=== PATIENT | male | born 1965 | race Caucasian/White ===

== ENCOUNTER 2021-11-22 08:55 | Outpatient (CLI) | payer OTHER, SELFPAY ==
--- NOTE | ~2021-11-22 | US_ITS ---
EXAMINATION: US aorta EXAM DATE: 11/22/2021 10:24 INDICATION: I71.4 - Abdominal aortic aneurysm, without rupture AAA . TECHNIQUE: Multiple grayscale and Doppler images of the aorta were obtained (by a technologist who pe rformed the scan) and subsequently reviewed. Comparison is made to prior examination from 03/05/2019. FINDINGS: The abdominal aorta measures 1.9 cm at its mid aspect, 3.1 x 4.0 cm distally. Dimensions are larger t gambino those provided in 2019 at 2.9 x 3.4. Right and left iliac arteries are 1.6 and 1.3 cm respectivel y. IMPRESSION: Mild increase in size of abdominal aortic aneurysm now measuring 4.0 cm distal transverse dimension. Reviewed, dictated and finalized at location A. BASE SECURITY ADMINISTRATOR IMPRESSION: Mild increase in size of abdominal aortic aneurysm now measuring 4. 0 cm distal transverse dimension.
== END 2021-11-22 08:56 | disposition home or self-care (01) ==
LOC: ANHIMG 08:58
PROVIDERS: PCP Family Medicine; Visit Provider Internal Medicine Cardiovascular Disease
DX: I71.4 Abdominal aortic aneurysm, without rupture (principal)
CPT/HCPCS: 76775

== ENCOUNTER 2022-09-24 08:04 | Outpatient (CLI) | payer OTHER, SELFPAY ==
--- NOTE | ~2022-09-24 | MR_ITS ---
EXAMINATION: MR shoulder RT wo con DATE: 09/24/2022 09:04 INDICATION: Right shoulder pain TECHNIQUE: Magnetic resonance imaging (MRI) of the right shoulder was performed without intravenous c ontrast. Sequences included axial PD-weighted FS FSE, coronal oblique PD-weighted FS FSE, coronal obl ique T2-weighted FS FSE, sagittal PD-weighted FS FSE, and sagittal T1-weighted SE. COMPARISON: None. FINDINGS: Coracoacromial arch: The acromion undersurface is curved in morphology (type II). Small anterior subacromial spur at the a cromial insertion of the normal coracoacromial ligament. Mild acromioclavicular osteoarthritis. Rotator cuff: Severe supraspinatus tendinopathy and mild infraspinatus tendinopathy. Articular sided tear extending approximately 2.5 cm AP along the superior facet footplate of the supraspinatus and conjoined portio n of the supraspinatus and infraspinatus tendons. There is approximately 1.5 cm medial retraction of the torn articular side of the tendon. Posteriorly the tear involves up to one half of the tendon thi ckness. This is likely more severe anteriorly however the differentiation between torn and frayed neeraj milton intact tendon is limited anteriorly by the severe underlying tendinopathy. The teres minor tendon is normal. Moderate subscapularis tendinopathy with partial thickness tear along the lesser tuberosi ty footplate. This can be seen along the lateral half of the cephalad two thirds of the footplate. Th e articular side of the tendon remains intact as does the bursal side of the tendon which remains con tiguous with the transverse humeral ligament. Normal rotator cuff muscle bulk and signal. Biceps tendon, glenoid labrum and glenohumeral cartilage: There is subluxation of the long head biceps tendon across the superolateral aspect of the lesser tub erosity at the site of the torn subscapularis tendon tear. Former moderate tendinopathy at the juncti on the intra-articular portion of the tendon where it is subluxed across the lesser tuberosity. Chron ic degenerative tearing of the majority of the glenoid labrum which appears diffusely small with irre gular increased signal and frayed margins. This appears to spare the superior labrum at the site of t he biceps labral complex. There are small marginal osteophytes along the glenoid most prominent infer iorly which replaces portions of the labral tissue. Mild glenohumeral osteoarthritis with partial thi ckness cartilage loss which generally smooth chondral surface along the cephalad half the glenoid and inferomedial aspect of the humeral head. Fluid: Moderate-sized glenohumeral joint effusion with proportional extension of small amount of fluid into the long head biceps tendon sheath. No loose osteochondral bodies. Mild increased fluid signal along portions of the subacromial/subdeltoid bursa consistent with minimal bursitis. Bones: Bone alignment is normal. No fracture or pathologic marrow replacing process. Mild hypertrophic schultz e along the lesser tuberosity and mild cystic change at the middle facet of the greater tuberosity tashi th likely sequela of chronic rotator cuff disease. IMPRESSION: 1. Severe supraspinatus and mild infraspinatus tendinopathy with partial-thickness articular sided te ar extending along the greater tuberosity footplate of the supraspinatus and conjoined supraspinatus and infraspinatus tendons. 2. Moderate subscapularis tendinopathy with partial-thickness tear involving the superolateral portio n of the lesser tuberosity footplate. 3. Moderate tendinopathy without definitive tear at the junction of the intra-articular and extra-art icular portions of the long head biceps tendon where it is subluxed across the subscapularis tear def ect at the lesser tuberosity. 4. Mild glenohumeral osteoarthritis with diffuse degenerative tearing of the diminutive and frayed ap pearing glenoid labrum. ___
== END 2022-09-24 08:05 | disposition home or self-care (01) ==
PROVIDERS: PCP Family Medicine; Visit Provider Orthopaedic Surgery
DX: S46.011A Strain of muscle(s) and tendon(s) of the rotator cuff of right shoulder, initial encounter (principal); M19.011 Primary osteoarthritis, right shoulder; S43.431A Superior glenoid labrum lesion of right shoulder, initial encounter
CPT/HCPCS: 73221

== ENCOUNTER → 2022-11-03 08:45 | Outpatient (CLI) | payer OTHER, SELFPAY ==
--- NOTE | ~2022-11-03 | US_ITS ---
EXAMINATION: US aorta DATE: 11/03/2022 09:04 INDICATION: Abdominal aortic aneurysm TECHNIQUE: Grayscale, color Doppler, and pulsed Doppler images of the aorta and common iliac arteries were obtained. COMPARISON: 11/03/2022. FINDINGS: The aorta measures 2.6 cm proximally, 2.6 cm mid, and 3.8 cm distally. The right common iliac artery 1.2. The left common iliac artery 1.2. IMPRESSION: 1. 3.8 cm fusiform distal infrarenal abdominal aortic aneurysm. Recommend follow-up aortic ultrasound in 2 years. Reviewed, dictated and finalized at location K. COAT MILL OPERATOR IMPRESSION: 1. 3.8 cm fusiform distal infrarenal abdominal aortic aneurysm. Recommend follo w-up aortic ultrasound in 2 years.
== END ==
PROVIDERS: PCP Internal Medicine Cardiovascular Disease; Visit Provider Internal Medicine Cardiovascular Disease
DX: I71.40 Abdominal aortic aneurysm, without rupture, unspecified (principal)
CPT/HCPCS: 76775

== ENCOUNTER 2022-11-26 09:59 | Outpatient (CLI) | payer OTHER, SELFPAY ==
--- NOTE | ~2022-11-26 | NM_ITS ---
EXAMINATION: NM juliette stress w perfusion DATE: 11/26/2022 12:23 INDICATION: Other forms of dyspnea. TECHNIQUE: Rest images were obtained following intravenous administration of 8 mCi Tc99m tetrofosmin (Myoview). The patient was infused intravenously with Lexiscan (regadenoson). Then, 28.3 mCi Tc99m te trofosmin (Myoview) was administered intravenously, and stress images were obtained. Data was reconst ructed into short axis and horizontal and vertical long axis SPECT images. Gated SPECT images were al so obtained. COMPARISON: CT abdomen and pelvis 05/05/2018 FINDINGS: There is no definite reversible or fixed perfusion abnormality to suggest ischemia or infar ction. There is no segmental wall motion abnormality. Left ventricular ejection fraction measures > 70%. IMPRESSION: 1. No definite ischemia or infarct. 2. Normal left ventricular ejection fraction measuring >70%. Reviewed, dictated and finalized at location A. SDET
--- NOTE | 2022-11-26 10:24 | EST_ITS ---
Patient Info Name: Tray Patel Age: 57 years : 1965 Gender: Male Ht: 70 in Wt: 170 lbs BSA: 1.96 m2 HR: 61 bpm BP: 148 / 76 mmHg Heart Rhythm: Sinus Rhythm Exam Date: 11/26/2022 11:03 AM Exam Location: [facility] Stress Patient Status: Outpatient Admit Date: 11/26/2022 Staff Ordering Physician: Luis Bonilla DO Attending Provider: Luis Bonilla DO Exercise Technologist: Mahsa Salazar CT Exercise Physician: Luis Bonilla DO Exam Type: CA stress juliette w NM Study Info Indications R06.09 - Other forms of dyspnea A regadenoson stress test was performed. Summary 1. 1. Negative lexiscan stress test for ischemic ST changes by ECG criteria. 2. 2. Stable hemodynamics throughout the test. 3. 3. Nuclear scan to follow and will be reported separately. Please correlate with it. 4. 4. Patient informed of the above results. Protocol: Lexiscan Stress ECG Details Stage: REST Duration (min): 0 min : 57 sec HR (bpm): 64 SBP (mmHg): 148 DBP (mmHg): 76 Stage: REST Duration (min): 7 min : 33 sec HR (bpm): 62 SBP (mmHg): 148 DBP (mmHg): 76 Stage: STAGE 1 Duration (min): 0 min : 59 sec HR (bpm): 71 SBP (mmHg): 148 DBP (mmHg): 76 Stage: RECOVERY Duration (min): 1 min : 0 sec HR (bpm): 80 SBP (mmHg): 221 DBP (mmHg): 87 Stage: RECOVERY Duration (min): 2 min : 0 sec HR (bpm): 76 SBP (mmHg): 114 DBP (mmHg): 63 Stage: RECOVERY Duration (min): 2 min : 52 sec HR (bpm): 74 SBP (mmHg): 114 DBP (mmHg): 66 Rest HR: 62 bpm Peak HR: 80 bpm Rest Sys BP: 128 mmHg Peak Sys BP: 135 mmHg Max Pred HR: 163 bpm % Max Pred HR: 49 % Target HR: 139 bpm Max RPP: 10,800 bpm*mmHg Termination Reason: Completed protocol Cardiac Symptoms: Shortness of breath Total Time: 1 min : 0 sec Rest Pérez BP: 76 mmHg Peak Pérez BP: 87 mmHg Total Dose: 0.4 mg Resting ECG Sinus rhythm. Stress ECG No ST changes. Arrhythmias None. Report Signatures
== END 2022-11-26 10:00 | disposition home or self-care (01) ==
PROVIDERS: PCP Family Medicine; Visit Provider Internal Medicine Cardiovascular Disease
DX: R06.09 Other forms of dyspnea (principal)
CPT/HCPCS: 78452; 93017; A9502; J2785

== ENCOUNTER 2022-11-29 06:49 | Outpatient (CLI) | payer OTHER, SELFPAY ==
[2022-11-29 07:19] LABS: Alanine Aminotransferase 17 U/L (6-50); Albumin Level 4.2 g/dL (3.5-5.1); Alkaline Phosphatase 55 U/L (38-126); Anion Gap 6 mmol/L (8-16); Aspartate Amino Transferase 19 U/L (17-59); Bilirubin,Total 0.6 mg/dL (0.2-1.3); Blood Urea Nitrogen 11 mg/dL (9-20); Calcium 8.8 mg/dL (8.4-10.2); Carbon Dioxide 30 mmol/L (22-30); Chloride 103 mmol/L (98-107); Cholesterol 96 mg/dL (0-200); Estimated Glomerular Filt Rate > 60; Glucose 147 mg/dL (65-110); HDL Direct 27 mg/dL; Potassium 3.5 mmol/L (3.4-5.0); Sodium 139 mmol/L (137-145); Triglycerides 135 mg/dL (<150)
[2022-11-29 07:30] LABS: LDL Cholesterol Direct 48 mg/dL
[2022-11-29 07:49] LABS: Prostate Specific Antigen 0.4 ng/mL (< OR = 4.0)
[2022-11-29 09:16] LABS: Vitamin D 25 Hydroxy 65.9 ng/mL
== END 2022-11-29 06:50 | disposition home or self-care (01) ==
PROVIDERS: PCP Family Medicine; Visit Provider Nurse Practitioner Family
DX: Z12.5 Encounter for screening for malignant neoplasm of prostate (principal); E78.5 Hyperlipidemia, unspecified; E11.9 Type 2 diabetes mellitus without complications; E55.9 Vitamin D deficiency, unspecified; I10 Essential (primary) hypertension
CPT/HCPCS: 36415; 80053; 80061; 82306; 83036; 84153; 84443; G0103

== ENCOUNTER 2022-12-10 00:23 | Day surgery (SDC) | payer OTHER, SELFPAY ==
[2022-11-28 12:46] VITALS: BMI 24.4
--- NOTE | 2022-11-28 14:26 | SUR.PREOP ---
Report to the Outpatient Waiting Room, entrance under the green pavilion located off [facility], at time _0830 on date _12/10/22 . Planned Procedure Time: _1030 . Time changes happen often and if your time is changed the preop area will call you the afternoon before. - You and your visitor will be asked to self-screen and do not enter if you have any COVID symptoms. - Only one visitor is requested with a max of two and NO children visitors are allowed at this time. - The patient visitor may be requested to leave or wait in car when not with patient due to distancing restrictions. - A mask is optional within the hospital. Patients may have clear liquids (water, carbonated beverages, clear teas, apple juice) until 3 hours prior to surgery with a maximum of 20 ounces. - No food from midnight until time of surgery - Infants may have breast milk until 4 hours before surgery, formula 6 hours prior to surgery. - Children will be allowed to drink immediately following surgery. If applicable, please bring a bottle or sippy cup to assist with drinking. Juice, water, soda, and popsicles are readily available. For infants on formula, please bring formula the day of surgery. Pacifiers are allowed. Take the following medications with a SIP of water the morning of surgery: _LEVOTHYROXINE,CARVEDILOL,PAIN MED IF NEEDED Medications to discontinue per physician __CONTACT DR LOMAS FOR ASPIRIN INSTRUCTIONS,IF NEEDED TO HOLD Date to take last dose Please no make-up, nail beninese, hairspray, perfume, deodorant, or body powder the day of surgery. No jewelry (including any body piercings) or valuables the day of surgery, leave them at home. Please take a shower or bath the night before, or the morning of, surgery with an antibacterial soap. Wear comfortable, loose fitting clothing. Children are encouraged to wear pajamas. - Jewelry must be removed prior to entering the operating room. Rings and piercings that are not removed may be cut off. - The hospital will not accept responsibility for valuables. - Please leave all valuables, including medications, at home the day of surgery. If you are going home after surgery, a licensed petroleum transport driver must drive you home. - NO public transportation without another adult if you receive anesthesia. - We recommend that an adult stay with you for 24 hours following discharge. - We also recommend that you do not drive, make important decision, drink alcoholic beverages, or take any drugs that were not prescribed by your health care provider for at least 24 hours after your discharge time. For Pediatric surgeries, we recommend two adults accompany the child home. Follow any additional instructions given to you from your surgeon. If you or anyone in your household have experienced Covid symptoms in the past week, please notify your surgeon or the nurse liaison at the phone number below for possible testing. Telephone instructions given to _MARLINE IYER WIFE and asked if any additional questions and then verbalized understanding. Patient advised to call surgeon office or pre surgery nurse liaison [phone] if any additional questions.
[2022-12-10] VITALS (7 sets, daily range): BP systolic 109–151; BP diastolic 69–85; PULSE 48–65; RESP 12–18; TEMP 36.2–36.4; O2SAT 96–100; BMI 24.1
--- NOTE | 2022-12-10 07:22 | WPDHPUPDATE1 ---
History and Physical Update Update Date/Time: 12/10/22 07:22 History and Physical has been reviewed, including an updated exam of the patient. There are NO changes in the patient's condition. Risks, benefits, and alternatives have been discussed and questions answered. Patient agrees to proceed with procedure.
--- NOTE | 2022-12-10 08:58 | WPDANESEPPF ---
Anes - Initial Pre Proc Eval Procedure: Operation Date: 12/10/22 10:30 Proposed Procedures p Right Rotator Cuff Repair - Rico Weiss MD Date/Time: 12/10/22 08:58 Surgeon: Rico Weiss MD Pre Op Diagnosis: right rotator cuff tear Patient Data Age: 57 Gender: M Height: 1.78 m Weight: 77.27 kg Allergies Allergy/AdvReac Type Severity Reaction Status Date / Time amoxicillin Allergy Intermediate Unknown Verified 12/10/22 08:44 Home Medications Medication Instructions Recorded Confirmed Type aspirin 81 mg tablet,delayed 81 mg PO DAILY 05/17/20 12/10/22 History release (Adult Low Dose Aspirin) omeprazole 20 mg capsule,delayed 20 mg PO DAILY 05/17/20 12/08/22 History release cholecalciferol (vitamin D3) 50 50 mcg PO DAILY 03/04/21 12/08/22 History mcg (2,000 unit) capsule atorvastatin 40 mg tablet 40 mg PO DAILY #90 tabs 07/14/22 12/08/22 Rx levothyroxine 25 mcg tablet 25 mcg PO DAILY #90 tabs 07/16/22 12/10/22 Rx fenofibrate 160 mg tablet 160 mg PO DAILY #90 tabs 08/11/22 12/08/22 Rx metformin 1,000 mg tablet 1,000 mg PO BID #180 tabs 09/29/22 12/08/22 Rx hydrochlorothiazide 25 mg tablet See Rx Instructions .Route 10/05/22 12/08/22 Rx .COMPLEX #90 tabs lisinopril 20 mg tablet 20 mg PO BID #180 tabs 10/06/22 12/08/22 Rx carvedilol 12.5 mg tablet See Rx Instructions .Route 10/09/22 12/10/22 Rx .COMPLEX #180 tabs hydrocodone 5 mg-acetaminophen 300 1 tablet PO BID PRN pain #30 tabs 11/13/22 12/10/22 Rx mg tablet glipizide 5 mg tablet 5 mg PO DAILY #90 tabs 12/01/22 12/08/22 Rx flash glucose sensor (FreeStyle #1 ea 12/02/22 12/08/22 Rx Keyanna 14 Day Sensor kit) Patient hx anesthesia problems: none Family hx anesthesia problems: none Results Review: All pre-operative results and documents have been reviewed as part of the pre-operative evaluation. PMFSH Past Medical History Medical History AAA (abdominal aortic aneurysm) without rupture CAD in [place] artery Chronic pain of both knees Dyslipidemia Essential (primary) hypertension History of diverticulitis Hypothyroidism, unspecified Type 2 diabetes mellitus without complication, without long-term current use of insulin Vitamin D deficiency Surgical History Surgical History History of coronary artery stent placement Family History Family History Mother Patient's mother is Father Patient's father is Sibling Diabetes mellitus Other Hypertension Social History Social History Smoking packs per day: 1 Smoking cigarettes per day: 20.0 Years smoked: 40 Smoking pack-years: 40.00 Smoking status: Current every day smoker Tobacco type: cigarettes Second hand tobacco smoke exposure: No Additional smoking assessment comments: 1 1/2 ppd [id number] Alcohol intake: former Alcohol use details: consumes beer socially Substance use: never Substance use type: does not use Living arrangements: with family Gender identity (if verbalized by the patient): Male Spiritual care concerns: No Anes - Eval Final PreProcedure Day of Procedure 12/10/22 08:58 Patient weight: normal Heart: regular rate and rhythm Lungs: decreased breath sounds Airway: Mallampati scale class II Neurological: alert and oriented Last oral intake: >/= 8 hours ASA classification: III Emergent: no Anesthetic plan: proceed Anesthesia type and monitoring: general ETT and standard monitoring Results Review: All pre-operative results and documents have been reviewed as part of the pre-operative evaluation. Informed Consent: The patient's anesthetic plan and its attendant risks and benefits were discussed with the patient/family/POA. Questions were solicited a
[2022-12-10] MEDS: LACTATED RINGERS 1,000 ML 30 ML IV CONT ×2 (09:00→13:27)
[2022-12-10 09:10] LABS: Glucose Point of Care 168 mg/dl (65-105)
[2022-12-10] MEDS: ACETAMINOPHEN 500 MG TABLET 1000 MG PO (09:13)
[2022-12-10] MEDS: CELECOXIB 200 MG CAPSULE PO (09:13)
--- NOTE | 2022-12-10 10:37 | WPDANESPNB ---
Anes - Peripheral Nerve Block Date/Time: 12/10/22 10:37 I have discussed with the patient/family/POA the placement of a peripheral nerve block for post-operative pain management, including associated risks, benefits, complications, and side effects. Alternative methods of post-operative analgesia were detailed. Questions were solicited and answers provided to the satisfaction of the patient/family/POA. Time-Out: A pre-procedural Time-Out was completed immediately before starting the procedure and confirmed: Patient Identification, Site, Procedure, Patient Position and the Availability of Requisite Equipment. Clinical Indications: Acute post-operative pain management requested by the operative surgeon. Nerve Block Insertion Note Anes-nerve block: interscalene right Patient position: supine Skin prep: chlorhexidine Needle: 22 gauge, stimulating, insulated echogenic needle. Needle length: 50 mm Technique: nerve stimulation lost at (mA) (0.3) and ultrasound Technique comment: mid2mg [id number] Injectate: bupivacaine 0.5% with epi 5 mcg/ml (30ml) and dexamethasone (mg) (4) Observations: tolerated well Complications: none Procedure start time:: 1028 Procedure end time:: 1033
[2022-12-10] MEDS: ceFAZolin 2 GM/D5W 50 ML 2 GM/50 ML BAG IVPB (11:06)
[2022-12-10 13:34] LABS: Glucose Point of Care 135 mg/dl (65-105)
--- NOTE | 2022-12-10 16:16 | W.PM.PROC2 ---
Procedure Note - Detailed Date of Procedure 12/10/22 Pre-op Diagnosis right rotator cuff tear Post-op Diagnosis Same Procedure Performed REPAIR RIGHT ROTATOR CUFF Surgeon Rico Weiss MD Anesthesia General Description of Procedure THE PATIENT WAS TAKEN TO THE OPERATING ROOM AND THEN INTUBATED AND PLACED IN THE BEACH CHAIR POSITION. THE RIGHT UPPER EXTREMITY WAS PREPPED AND DRAPED IN THE NORMAL STERILE FASHION. AN INCISION WAS MADE IN BETWEEN THE BUSTER-LATERAL ACROMION AND THE AC JOINT. THE FASCIA WAS IDENTIFIED. NEXT A MINI OPEN INCISION WAS MADE THROUGH THE DELTOID MUSCLE EXPOSING THE SUBACROMIAL SPACE. A LIMITED ACROMIOPLASTY WAS PREFORMED. THE ROTATOR CUFF WAS IDENTIFIED. THERE WAS A FULL THICKNESS TEAR. IT MEASURED APPROXIMATELY 3 CM X 2 CM. THERE WAS A LOT OF BURSAE AND INFLAMED BURSA TISSUE. THERE WAS A SIGNIFICANT AMOUNT OF ADHESIONS IN THE SUB DELTOID BURSA WELL. DIGITAL ADHESIOLYSIS WAS PREFORMED. THE GREATER TUBEROSITY WAS DEBRIDED TO BLEEDING BONE. 4 ARTHREX 5.5 SUTURE ANCHORS WERE PLACED IN TO GOOD BONE AND HAD VERY GOOD BITES. NBA-NIELS TYPE REPAIRS WERE DONE TO THE ROTATOR CUFF AND THERE WAS GOOD APPROXIMATION TO THE GREATER TUBEROSITY. THE REPAIR WAS EXCELLENT. THERE WAS NO IMPINGEMENT ON THE REPAIR FROM THE ACROMION WITH RANGE OF MOTION. THE WOUND WAS IRRIGATED WITH COPIOUS AMOUNTS OF ANTIBIOTIC SOLUTION, STERILE BETADINE AND H202 MIXED WITH WATER.. THE DELTOID MUSCLE WAS REPAIRED WITH #2 FIBER WIRE AND 0 VICRYL SUTURE. THE SUBCUTANEOUS LAYER WAS APPROXIMATED WITH 2-0 VICRYL. THE SKIN WAS APPROXIMATED WITH 3-0 QUIL AND DERMABOND. STERILE DRESSING WAS APPLIED. PATIENT WAS EXTUBATED. Estimated Blood Loss 20 Complications No immediate complications Condition Stable Disposition PACU
--- NOTE | 2022-12-10 16:45 | SUR.PHASEII ---
RN called spouse to let her know that pain medicine was sent to pharmacy and that it was okay to resume aspirin tomorrow per Dr. Weiss.
== END 2022-12-10 15:10 | disposition home or self-care (01) ==
PROVIDERS: PCP Nurse Practitioner Family; Visit Provider Orthopaedic Surgery
PROC: (CPT 23420; principal; 2022-12-10 10:30)
DX: S46.011A Strain of muscle(s) and tendon(s) of the rotator cuff of right shoulder, initial encounter (principal); W19.XXXA Unspecified fall, initial encounter; G89.18 Other acute postprocedural pain; I71.40 Abdominal aortic aneurysm, without rupture, unspecified; I25.10 Atherosclerotic heart disease of native coronary artery without angina pectoris; I10 Essential (primary) hypertension; E78.5 Hyperlipidemia, unspecified; E11.9 Type 2 diabetes mellitus without complications; E55.9 Vitamin D deficiency, unspecified; E03.9 Hypothyroidism, unspecified; Z95.5 Presence of coronary angioplasty implant and graft; F17.210 Nicotine dependence, cigarettes, uncomplicated; Z79.82 Long term (current) use of aspirin; Z79.84 Long term (current) use of oral hypoglycemic drugs
CPT/HCPCS: 23410; 64415; 82948; A9270; C1713; J0690; J1100; J2250; J2370; J2405; J2704; J3010; J7120

== ENCOUNTER 2023-02-23 15:55 | Emergency (ER) | payer OTHER, SELFPAY ==
--- NOTE | 2023-02-23 17:11 | PC.NURSE ---
Patient states he does not wish to be seen anymore and is going home. Patient ambulated out of ED with a steady gait and with all belongings. Patient advised to return to the ED if symptoms worsen or continue.
== END 2023-02-23 17:11 | disposition left against medical advice (07) ==
PROVIDERS: PCP Family Medicine
DX: Z53.21 Procedure and treatment not carried out due to patient leaving prior to being seen by health care provider (principal)
CPT/HCPCS: 99199

== ENCOUNTER 2023-02-24 09:24 | Emergency (ER) | payer OTHER, SELFPAY ==
--- NOTE | ~2023-02-24 | CT_ITS ---
EXAMINATION: CT abdomen pelvis w con DATE: 02/24/2023 17:05 INDICATION: Left lower quadrant abdominal pain. Epigastric abdominal pain. Constipation. TECHNIQUE: Computed tomography (CT) of the abdomen and pelvis was performed with 100 mL Omnipaque 350 intravenous contrast. Automated exposure control and iterative reconstruction technique were employe d. The dose-length product was 608.12 mGy-cm. COMPARISON: CT abdomen and pelvis 05/05/2018 FINDINGS: The visualized portions of the lung bases demonstrate mild atelectasis. No pleural effusion . The heart size is normal. There are coronary artery calcifications. No pericardial effusion. Left h epatic lobe is small. The gallbladder, spleen, pancreas, and right adrenal gland are normal. There is an 8 mm mass in left adrenal gland that demonstrated fat on the prior CT, consistent with a myelolip soah. The kidneys are normal. There is a 3.3 cm fusiform aneurysm of infrarenal aorta. The prostate is mildly enlarged. There is a right inguinal hernia containing fat. There are diverticula in the colon . There is wall thickening of sigmoid colon with fat stranding between the sigmoid colon and bladder, consistent with chronic diverticulitis. There are no dilated loops of bowel. The appendix is normal. There is calcified atherosclerosis of the aorta and many of the other arteries. There are no patholo gically enlarged lymph nodes. There is no free intraperitoneal fluid. There is mild thoracolumbar spo ndylosis. There is mild chronic anterior wedging of T11 and T12 vertebral bodies. IMPRESSION: 1. Mild findings of chronic sigmoid diverticulitis. 2. 3.3 cm fusiform aneurysm of infrarenal aorta. 3. Right inguinal hernia containing fat. Reviewed, dictated and finalized at location A.
[2023-02-24 09:53] VITALS: BP 119/101; PULSE 70; RESP 18; TEMP 36.3; O2SAT 100
[2023-02-24 12:56] LABS: Basophils Absolute Auto 0.1 K/mm3 (0.0-0.1); Basophils Percent Auto 1.2 % (0.2-1.2); Eosinophils Absolute Auto 0.3 K/mm3 (0-0.3); Eosinophils Percent Auto 3.1 % (0-4.4); Hematocrit 41.9 % (42.0-52.0); Hemoglobin 14.5 g/dL (14.0-18.0); Immature Granulocyte Absolute 0.07 K/mm3 (0.00-0.031); Immature Granulocyte Percent A 0.8 % (0-0.5); Lymphocytes Absolute Auto 2.33 K/mm3 (0.9-3.2); Lymphocytes Percent Auto 25.5 % (18.3-44.2); Mean Corpuscular HGB Conc 34.6 g/dl (32-36); Mean Corpuscular Hemoglobin 32.2 pg (26-34); Mean Corpuscular Volume 93.1 fl (80-100); Mean Platelet Volume 9.4 fl (7.4-10.4); Monocytes Percent Auto 10.6 % (2.6-8.5); Neutrophils Absolute Auto 5.4 K/mm3 (1.3-6.7); Neutrophils Percent Auto 58.8 % (45.5-73.1); Platelet Count Result 258 k/mm3 (150-375); Red Cell Distribution Width 12.6 % (11.5-14.5); White Blood Count 9.1 K/mm3 (4.5-10.0)
[2023-02-24 12:57] LABS: Appearance Urine Clear (Clear); Bilirubin Urine Negative (Negative); Blood Urine Negative (Negative); Color Urine Yellow (Yellow); Glucose Urine UA 2+ mg/dL (Negative); Ketones Urine Negative (Negative); Leukocyte Esterase Ur Negative LEU/UL (Negative); Nitrate Urine Negative (Negative); Protein Urine Negative (Negative)
[2023-02-24 13:04] LABS: Add Urine Microscopic? NO
[2023-02-24 13:06] LABS: Alanine Aminotransferase 23 U/L (6-50); Albumin Level 4.4 g/dL (3.5-5.1); Alkaline Phosphatase 55 U/L (38-126); Anion Gap 10 mmol/L (8-16); Aspartate Amino Transferase 25 U/L (17-59); Bilirubin,Total 0.6 mg/dL (0.2-1.3); Blood Urea Nitrogen 13 mg/dL (9-20); Calcium 8.9 mg/dL (8.4-10.2); Carbon Dioxide 26 mmol/L (22-30); Chloride 101 mmol/L (98-107); Estimated CRCL calculation 81 ml/min; Estimated Glomerular Filt Rate > 60; Glucose 107 mg/dL (65-110); Lipase 111 U/L (23-300); Potassium 3.8 mmol/L (3.4-5.0); Sodium 137 mmol/L (137-145)
--- NOTE | 2023-02-24 16:36 | ED.ABDPAIN ---
HPI - Abdominal Pain General Chief Complaint: Abdominal Pain Stated Complaint: abdominal pain x several months Time Seen by Provider: 02/24/23 14:09 Source: patient Mode of arrival: ambulatory Limitations: no limitations History of Present Illness HPI narrative: Patient is a 58 y/o male who presents to the ED with c/o abdominal pain. Patient reports having intermittent pain in his epigastric region and left lower quadrant for the past several months. He has previously been seen by his primary care doctor and started on Protonix, which he reports sometimes helps his epigastric pain. Denies any other aggravating or alleviating factors to his pain. He has otherwise not tried anything for pain. Does report recent constipation which he has related to opioid use from a recent right rotator cuff surgery. Last bowel movement was Thursday. Denies rectal bleeding or melena. Denies nausea, vomiting, urinary symptoms, fevers, chest pain, shortness of breath. Patient is scheduled to see a GI specialist on April 06. Patient did come to the ED last night but left before being seen. Related Data Home Medications Medication Instructions Recorded Confirmed aspirin 81 mg tablet,delayed 81 mg PO DAILY 05/17/20 02/05/23 release (Adult Low Dose Aspirin) cholecalciferol (vitamin D3) 50 50 mcg PO DAILY 03/04/21 02/05/23 mcg (2,000 unit) capsule Allergies Allergy/AdvReac Type Severity Reaction Status Date / Time amoxicillin Allergy Intermediate Unknown Verified 02/24/23 09:24 Review of Systems Review of Systems: CONSTITUTIONAL: Denies fever, chills, or sweats. CARDIOVASCULAR: Denies chest pain. RESPIRATORY: Denies dyspnea. GASTROINTESTINAL: See HPI. GENITOURINARY: Denies dysuria or hematuria. SKIN: Denies rash or itching. MUSCULOSKELETAL: Denies back pain, joint pain, or myalgia. All systems reviewed & are unremarkable except as noted in HPI and below PMFSH Past Medical History Medical History AAA (abdominal aortic aneurysm) without rupture CAD in [place] artery Chronic pain of both knees Dyslipidemia Essential (primary) hypertension History of diverticulitis Hypothyroidism, unspecified Type 2 diabetes mellitus without complication, without long-term current use of insulin Vitamin D deficiency Surgical History Surgical History History of coronary artery stent placement S/P right rotator cuff repair 12/10/2022 Family History Family History Mother Patient's mother is Father Patient's father is Sibling Diabetes mellitus Other Hypertension Social History Social History Smoking packs per day: 1 Smoking cigarettes per day: 20.0 Years smoked: 40 Smoking pack-years: 40.00 Smoking status: Current every day smoker Tobacco type: cigarettes Second hand tobacco smoke exposure: No Additional smoking assessment comments: 1 1/2 ppd [id number] Alcohol intake: former Alcohol use details: consumes beer socially Substance use: never Substance use type: does not use Lack of Transportation: No Lack of Food: Never True Current Housing: I Have Housing Concerned About Future Housing: No Difficulty Paying Gas/Electric Bills: No Difficulty Paying for Meds: No Currently Unemployed: No Education: High School Diploma/GED Difficulty w/ Childcare or Family Care: No Living arrangements: with family Occupation/Education: occupation Gender identity (if verbalized by the patient): Male Spiritual care concerns: No Exam Narrative: GENERAL: Well appearing, well-nourished, non-toxic, in no acute distress. HEAD: Normocephalic, atraumatic. NECK: Supple. No adenopathy, no masses. RESPIRATORY: Airway patent, respirations n
[2023-02-24] MEDS: PANTOPRAZOLE SODIUM IV 40 MG VIAL IV PUSH (16:41)
[2023-02-24] MEDS: BELLADONNA ALK/PHENOB ELIX 10 ML, MAG HYDROX/ALUMINUM HYD/SIMETH 30 ML, LIDOCAINE HCL 2... PO (16:42)
[2023-02-24] MEDS: SODIUM CHLORIDE 0.9% IV 1,000 ML 999 ML IV CONT (16:42)
[2023-02-24 18:35] VITALS: BP 152/122; PULSE 67; RESP 20; TEMP 36.6; O2SAT 99
== END 2023-02-24 18:51 | disposition home or self-care (01) ==
PROVIDERS: General Practice; Emergency Provider Physician Assistant; PCP Family Medicine
DX: K57.32 Diverticulitis of large intestine without perforation or abscess without bleeding (principal); I71.40 Abdominal aortic aneurysm, without rupture, unspecified; R10.13 Epigastric pain; I25.10 Atherosclerotic heart disease of native coronary artery without angina pectoris; I10 Essential (primary) hypertension; E78.5 Hyperlipidemia, unspecified; E03.9 Hypothyroidism, unspecified; E11.9 Type 2 diabetes mellitus without complications; E55.9 Vitamin D deficiency, unspecified; Z95.5 Presence of coronary angioplasty implant and graft; Z79.82 Long term (current) use of aspirin; F17.210 Nicotine dependence, cigarettes, uncomplicated; Z79.84 Long term (current) use of oral hypoglycemic drugs; Z79.891 Long term (current) use of opiate analgesic
CPT/HCPCS: 36415; 74177; 80053; 81003; 83690; 85025; 96361; 96365; 96375; 99284; A9270; C9113; J0131; J7030; Q9967

== ENCOUNTER 2023-03-04 11:36 | Observation (INO) | payer OTHER, SELFPAY ==
[2023-03-04] VITALS (18 sets, daily range): BP systolic 74–154; BP diastolic 34–88; PULSE 51–67; RESP 16–25; TEMP 36.2–37; O2SAT 95–100
--- NOTE | ~2023-03-04 | CT_ITS ---
EXAMINATION: CT abdomen pelvis wo con DATE: 03/04/2023 13:02 INDICATION: Left abdominal pain. TECHNIQUE: Computed tomography (CT) of the abdomen and pelvis was performed without intravenous contr ast. Automated exposure control and iterative reconstruction technique were employed. The dose-length product was 582.86 mGy-cm. COMPARISON: CT abdomen and pelvis 02/24/2023 FINDINGS: The visualized portions of the lung bases demonstrate mild atelectasis. No pleural effusion . The heart size is normal. There are coronary artery calcifications. No pericardial effusion. The li neeraj, gallbladder, spleen, pancreas, adrenal glands, and kidneys are normal. There is no urolithiasis. There is diverticulosis of the colon without evidence of diverticulitis. The appendix is normal. The re are no dilated loops of bowel. There is fat stranding between the sigmoid colon and bladder. There are scattered diverticula in the colon. 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 The re are no pathologically enlarged lymph nodes. There is trace free fluid in the pelvis. There is prom inent fat in right inguinal canal that may be a hernia. There is mild lumbar spondylosis. IMPRESSION: 1. Stable mild chronic sigmoid diverticulitis. 2. 3.4 cm fusiform aneurysm of infrarenal aorta. Reviewed, dictated and finalized at location A.
--- NOTE | ~2023-03-04 | XR_ITS ---
EXAMINATION: XR chest 1V portable DATE: 03/04/2023 12:57 INDICATION: Dizziness. TECHNIQUE: A single frontal view of the chest was obtained. COMPARISON: Chest 2 views 06/02/2022 FINDINGS: The chest demonstrates clear lungs without pneumonia, pleural effusion, or pneumothorax. Th e heart size is normal. IMPRESSION: 1. No acute cardiopulmonary disease. Reviewed, dictated and finalized at location A.
--- NOTE | 2023-03-04 12:06 | ECG_ITS ---
Measurements Intervals [place] Rate: 54 P: 54 NV: 179 QRS: 41 QRSD: 109 T: 38 QT: 459 QTc: 437 Interpretive Statements SINUS BRADYCARDIA POSSIBLE LEFT ATRIAL ENLARGEMENT [-0.1mV P WAVE IN V1/V2] NO PREVIOUS ECG AVAILABLE FOR COMPARISON Electronically Signed On 03-04-2023 18:19:11 CDT by Hao King M.D.
[2023-03-04 12:29] LABS: Basophils Percent Auto 0.9 % (0.2-1.2); Eosinophils Absolute Auto 0.2 K/mm3 (0-0.3); Eosinophils Percent Auto 7.3 % (0-4.4); Hematocrit 39.1 % (42.0-52.0); Immature Granulocyte Absolute 0.03 K/mm3 (0.00-0.031); Immature Granulocyte Percent A 0.9 % (0-0.5); Lymphocytes Absolute Auto 0.81 K/mm3 (0.9-3.2); Lymphocytes Percent Auto 24.7 % (18.3-44.2); Mean Corpuscular HGB Conc 35.8 g/dl (32-36); Mean Corpuscular Hemoglobin 32.8 pg (26-34); Mean Corpuscular Volume 91.6 fl (80-100); Mean Platelet Volume 10.7 fl (7.4-10.4); Monocytes Absolute Auto 0.5 K/mm3 (0.1-0.6); Monocytes Percent Auto 14.3 % (2.6-8.5); Neutrophils Absolute Auto 1.7 K/mm3 (1.3-6.7); Neutrophils Percent Auto 51.9 % (45.5-73.1); Platelet Count Result 126 k/mm3 (150-375); Red Blood Count 4.27 M/mm3 (4.6-6.20); Red Cell Distribution Width 12.7 % (11.5-14.5); White Blood Count 3.3 K/mm3 (4.5-10.0)
[2023-03-04 12:38] LABS: Lactic Acid Reflex 1.6 mmol/L (0.7-2.0)
[2023-03-04 12:41] LABS: Prothrombin Time 12.5 Seconds (11.1-14.7)
[2023-03-04 12:42] LABS: Alanine Aminotransferase 42 U/L (6-50); Albumin Level 3.9 g/dL (3.5-5.1); Alkaline Phosphatase 61 U/L (38-126); Anion Gap 9 mmol/L (8-16); Aspartate Amino Transferase 46 U/L (17-59); Bilirubin,Total 0.7 mg/dL (0.2-1.3); Blood Urea Nitrogen 38 mg/dL (9-20); CRP 0.7 mg/dL (<1.0); Calcium 8.1 mg/dL (8.4-10.2); Carbon Dioxide 26 mmol/L (22-30); Chloride 93 mmol/L (98-107); Estimated Glomerular Filt Rate 39; Glucose 154 mg/dL (65-110); Partial Thromboplastin Time 31.4 SECONDS (22.3-36.8); Potassium 3.6 mmol/L (3.4-5.0); Sodium 128 mmol/L (137-145)
--- NOTE | 2023-03-04 13:00 | ED.DIZZY ---
HPI - Dizziness General Chief Complaint: Dizziness Stated Complaint: dizziness Time Seen by Provider: 03/04/23 11:58 Source: patient, RN notes reviewed and old records reviewed Mode of arrival: ambulatory Limitations: no limitations History of Present Illness HPI Narrative: This is a 58 year old male with history of hypertension who presents for evaluation of dizziness for 2 days. He states he has had intermittent feeling of dizziness like he was going to pass out for 2 days, but today it was worse. He was started on antibiotics last week for chronic diverticulitis. He was started on flagyl and bactrim. He states he developed nausea vomiting the antibiotics so he stopped taking them. HE denies vomiting, fever, diarrhea, chest pain or sob. He still has left side abdominal pain but he states it has improved. He was found to be hypotensive on arrival. He states he has been taking his antihypertensive and he took today. Related Data Home Medications Medication Instructions Recorded Confirmed aspirin 81 mg tablet,delayed 81 mg PO DAILY 05/17/20 03/04/23 release (Adult Low Dose Aspirin) cholecalciferol (vitamin D3) 50 50 mcg PO DAILY 03/04/21 03/04/23 mcg (2,000 unit) capsule lisinopril 20 mg tablet 30 mg PO BID 03/04/23 03/04/23 Allergies Allergy/AdvReac Type Severity Reaction Status Date / Time amoxicillin AdvReac Intermediate Nausea and Verified 03/04/23 17:00 Vomiting Review of Systems Constitutional: Constitutional: Reports weakness Cardiovascular: Cardiovascular: Denies syncope, Denies rapid heart rate, Denies irregular heart rhythm, Denies leg edema and Denies dyspnea Respiratory: Respiratory: Denies chest congestion, Denies hemoptysis, Denies excessive phlegm production and Denies dyspnea Gastrointestinal: Gastrointestinal: Reports abdominal pain, Denies hematochezia, Reports nausea and Denies vomiting Genitourinary: Genitourinary: Denies hematuria, Denies dysuria, Denies penile discharge and Denies testicular pain Musculoskeletal: Musculoskeletal: Denies joint swelling, Denies loss of height and Denies muscle weakness Neurologic: Reports dizziness, Denies syncope, Denies focal weakness and Denies weakness PMFSH Past Medical History Medical History AAA (abdominal aortic aneurysm) without rupture CAD in [place] artery Chronic pain of both knees Dyslipidemia Essential (primary) hypertension History of diverticulitis Hypothyroidism, unspecified Type 2 diabetes mellitus without complication, without long-term current use of insulin Vitamin D deficiency Surgical History Surgical History History of coronary artery stent placement x2 S/P right rotator cuff repair 12/10/2022 Family History Family History Mother Patient's mother is Father Patient's father is Sibling Diabetes mellitus Other Hypertension Social History Social History (Updated 03/04/23 @ 18:54 by Giulia Manzano NP) Social History: The patient is and lives with his . Lori savage had 1 child who . He works for [employer]. He continues to smoke. Code status full code Smoking packs per day: 1 Smoking cigarettes per day: 20.0 Years smoked: 40 Smoking pack-years: 40.00 Smoking status: Current every day smoker Tobacco type: cigarettes Second hand tobacco smoke exposure: No Additional smoking assessment comments: 1 1/2 ppd [id number] Alcohol intake: former Alcohol use details: consumes beer socially Substance use: never Substance use type: does not use Lack of Transportation: No Lack of Food: Never True Current Housing: I Have Housing Concerned About Future Housing: No Difficulty Paying Gas/Electric Bills: No Difficulty Paying for Meds: No Cu
[2023-03-04] MEDS: SODIUM CHLORIDE 0.9% IV 2,300 ML/1,000 ML BAG 999 ML IV CONT ×3 (13:12→14:20)
[2023-03-04] MEDS: SODIUM CHLORIDE 0.9% IV 1,000 ML 125 ML IV CONT ×2 (14:40→21:30)
[2023-03-04 14:46] LABS: Appearance Urine Clear (Clear); Bacteria Urine None Seen /hpf; Bilirubin Urine Negative (Negative); Blood Urine Trace (Negative); Color Urine Yellow (Yellow); Glucose Urine UA Negative (Negative); Ketones Urine Negative (Negative); Leukocyte Esterase Ur Negative LEU/UL (Negative); Nitrate Urine Negative (Negative); Protein Urine Negative (Negative); RBC Urine 0-2 /hpf (0-2); Specific Grav Ur 1.007 (1.001-1.035); Squamous Epithelial Cell Urine None seen /hpf (Few); WBC Urine 0-5 /hpf; pH Urine 5.5 (5.0-9.0)
--- NOTE | 2023-03-04 14:46 | PM.IMHP ---
H&P: HPI History of Present Illness Date/Time: 03/04/23 14:46 Chief Complaint: Dizziness Narrative: This is a 58-year-old male patient who does have a history of hypertension. The patient is on diuretics for his blood pressure. The patient has been feeling dizzy for the last 2 days. Today it was worse. The patient was started on antibiotics last week for chronic diverticulitis. The patient had been on Bactrim and Flagyl for at least 5 days. The patient was so nauseated but no emesis. No diarrhea. The patient was not able to tolerate the antibiotics and then stop them. He denies any fever chills at this point. He has no diarrhea. His appetite has been poor and he was found to be hypotensive upon arrival to the emergency room. The patient stated that he did continue with his antihypertensive medication today. Today his CT scan stable mild chronic sigmoid diverticulitis. 3.4 cm fusiform aneurysm of infrarenal aorta. The patient is aware of the aneurysm. His initial blood pressure was 74/34 and is now 134/76 after IV bolus fluid. He has received 2 L of IV fluids. His white count is noted to be 3.3. Platelets 126. Sodium 128. Creatinine 1.8 with a recent normal baseline. Calcium is low at 8.1 the patient is being admitted to observation status on the date of service of 03/04/2023 Review of Systems Review of Systems: All systems reviewed & are unremarkable except as noted in HPI and below Constitutional: Constitutional: Reports as per HPI and Reports no additional constitutional complaints Eyes: Eyes: Reports as per HPI and Reports no additional eye complaints ENT: Reports system reviewed and no additional complaints, except as documented and Reports Normal hearing present Cardiovascular: Cardiovascular: Reports no additional cardiovascular complaints Respiratory: Respiratory: Reports no additional respiratory complaints and Reports no additional respiratory complaints Gastrointestinal: Gastrointestinal: Reports as per HPI and Reports no additional gastrointestinal complaints Musculoskeletal: Musculoskeletal: Reports no additional musculoskeletal complaints Integumentary/Breasts: Skin/Breast: Reports system reviewed and no additional complaints, except as docu and Reports as per HPI Neurologic: Reports system reviewed and no additional complaints, except as documented, Reports as per HPI and Reports Normal hearing present Psychiatric: Psychiatric: Reports no additional psychiatric complaints and Reports as per HPI Endocrine: Endocrine: Reports no additional endocrine complaints Hematologic/Lymphatic: Hematologic/Lymphatic: Reports no additional hematologic/lymphatic complaints Allergic/Immunologic: Allergic/Immunologic: Reports no additional allergic/immunologic complaints [facility] Past Medical History Medical History AAA (abdominal aortic aneurysm) without rupture CAD in [place] artery Chronic pain of both knees Dyslipidemia Essential (primary) hypertension History of diverticulitis Hypothyroidism, unspecified Type 2 diabetes mellitus without complication, without long-term current use of insulin Vitamin D deficiency Surgical History Surgical History History of coronary artery stent placement x2 S/P right rotator cuff repair 12/10/2022 Family History Family History Mother Patient's mother is Father Patient's father is Sibling Diabetes mellitus Other Hypertension Social History Social History (Updated 03/04/23 @ 18:54 by Giulia Manzano NP) Social History: The patient is and lives with his . Lori savage had 1 child who . He works for [employer]. He continues to smoke. Code status full code Smoking packs per day: 1 Smoking cigarettes per day: 20.
--- NOTE | 2023-03-04 14:46 | PC.NURSE ---
2300MLS OF NORMAL SALINE INFUSED. PT IS CURRENTLY GETTING REMAINDER OF THE NS BAG AT 125ML/HOUR
[2023-03-04 14:51] LABS: Add Urine Microscopic? YES
--- NOTE | 2023-03-04 16:54 | ADMGEN ---
This patient, Tray Patel, was admitted to Medical Room 340-01. Patient/family oriented to hospital policies and general routines including ID bracelet, bed and alarms, visiting hours, pain management, procedures, bathroom and other care routines, personal items, smoking policy, room service/diet, and visiting hours. Information on how to activate the Rapid Response Team has been discussed. Patient/Family are encouraged to report perceived risks to care and to ask questions if they do not understand what they are told or what they should do.
[2023-03-04] MEDS: NICOTINE (*PBKC) 21 MG PATCH 1 PATCH TRANSDERM (17:17)
[2023-03-04 17:22] LABS: Glucose Point of Care 88 mg/dl (65-105)
--- NOTE | 2023-03-04 17:42 | PC.NURSE ---
Both pt and unsure of current medications. Spouse had pharmacy send list over to this unit. Some discrepancies noted. Pt not sure what he takes at all. Please note that medication list was completed to the best of this nurses ability given pt and spouse state some things are being taken at home that havent been picked up from pharmacy in almost 2 years, while others that have recently been picked up are stated as not being picked up/taken.
[2023-03-04] MEDS: metroNIDAZOLE 500 MG/ISO 100ML 500 MG/100 ML BAG 100 MG IVPB (20:11)
[2023-03-04] MEDS: PANTOPRAZOLE SODIUM IV 40 MG VIAL IV PUSH (20:11)
[2023-03-04] MEDS: traMADol HCL (*CRX) 50 MG TABLET PO (20:15)
[2023-03-04 21:53] LABS: Glucose Point of Care 135 mg/dl (65-105)
[2023-03-04] MEDS: MELATONIN 5 MG TABLET PO (22:45)
[2023-03-05] VITALS (8 sets, daily range): BP systolic 147–157; BP diastolic 69–96; PULSE 49–64; RESP 16–20; TEMP 36.8–36.9; O2SAT 98–100; BMI 24.3
[2023-03-05] MEDS: metroNIDAZOLE 500 MG/ISO 100ML 500 MG/100 ML BAG 100 MG IVPB ×3 (03:16→18:07)
[2023-03-05] MEDS: SODIUM CHLORIDE 0.9% IV 1,000 ML 125 ML IV CONT ×2 (05:52→18:07)
[2023-03-05] MEDS: LEVOTHYROXINE SODIUM 25 MCG TABLET PO (05:52)
[2023-03-05 06:58] LABS: Basophils Percent Auto 0.8 % (0.2-1.2); Eosinophils Absolute Auto 0.3 K/mm3 (0-0.3); Eosinophils Percent Auto 9.4 % (0-4.4); Hematocrit 36.7 % (42.0-52.0); Hemoglobin 12.8 g/dL (14.0-18.0); Immature Granulocyte Absolute 0.02 K/mm3 (0.00-0.031); Immature Granulocyte Percent A 0.8 % (0-0.5); Lymphocytes Absolute Auto 1.09 K/mm3 (0.9-3.2); Lymphocytes Percent Auto 41.1 % (18.3-44.2); Mean Corpuscular HGB Conc 34.9 g/dl (32-36); Mean Corpuscular Hemoglobin 32.2 pg (26-34); Mean Corpuscular Volume 92.2 fl (80-100); Mean Platelet Volume 10.2 fl (7.4-10.4); Monocytes Absolute Auto 0.3 K/mm3 (0.1-0.6); Monocytes Percent Auto 11.7 % (2.6-8.5); Neutrophils Percent Auto 36.2 % (45.5-73.1); Platelet Count Result 117 k/mm3 (150-375); Red Blood Count 3.98 M/mm3 (4.6-6.20); Red Cell Distribution Width 12.6 % (11.5-14.5); White Blood Count 2.7 K/mm3 (4.5-10.0)
[2023-03-05 07:13] LABS: Lactic Acid Reflex 0.7 mmol/L (0.7-2.0)
[2023-03-05 07:25] LABS: Alanine Aminotransferase 33 U/L (6-50); Albumin Level 3.4 g/dL (3.5-5.1); Alkaline Phosphatase 54 U/L (38-126); Anion Gap 5 mmol/L (8-16); Aspartate Amino Transferase 33 U/L (17-59); Bilirubin,Total 0.5 mg/dL (0.2-1.3); Blood Urea Nitrogen 21 mg/dL (9-20); Carbon Dioxide 28 mmol/L (22-30); Chloride 101 mmol/L (98-107); Estimated Glomerular Filt Rate > 60; Glucose 115 mg/dL (65-110); Lipase 240 U/L (23-300); Magnesium 1.5 mg/dL (1.6-2.3); Potassium 3.7 mmol/L (3.4-5.0); Sodium 134 mmol/L (137-145)
[2023-03-05] MEDS: PANTOPRAZOLE SODIUM IV 40 MG VIAL IV PUSH ×2 (08:17→20:25)
[2023-03-05] MEDS: NICOTINE (*PBKC) 21 MG PATCH 1 PATCH TRANSDERM (08:18)
[2023-03-05] MEDS: MAGNESIUM SULF 2 GM/WATER 50ML 2 GM/50 ML BAG IVPB (08:18)
[2023-03-05] MEDS: CHOLECALCIFEROL 1,000 UNITS TABLET 2000 UNITS PO (08:18)
[2023-03-05] MEDS: POTASSIUM CHLORIDE 20 MEQ TABLET 40 MEQ PO (08:18)
[2023-03-05] MEDS: ASPIRIN 81 MG ENTERIC TABLET PO (08:18)
[2023-03-05 08:22] LABS: Glucose Point of Care 123 mg/dl (65-105)
[2023-03-05] MEDS: MAGNESIUM OXIDE 400 MG TABLET PO (09:31)
[2023-03-05 10:26] LABS: Hemoglobin A1C 7.1 % (<5.7)
[2023-03-05 11:06] LABS: Free T4 Free Thyroxine Reflex 1.35 ng/dL (0.78-2.19)
[2023-03-05 11:42] LABS: Glucose Point of Care 123 mg/dl (65-105)
[2023-03-05 12:57] LABS: Total Triiodothyronine (T3) 1.22 NG/ML (0.97-1.69)
--- NOTE | 2023-03-05 14:49 | WPDGICN ---
Assessment and Plan Assessment and plan (1) Diverticulitis: Code(s): K57.92 - Diverticulitis of intestine, part unspecified, without perforation or abscess without bleeding Status: Acute Assessment and Plan: patient has sigmoid diverticulitis. Initially diagnosed 1 week ago. This is persisted. He has been intolerant of some of the original antibiotics. Plan to continue broad-spectrum antibiotic coverage initially intravenously. Because of patient's known in sigmoid stricture when patient has improved from infection air-contrast barium enema should be performed. If stricture remains surgical referral for resection should be considered. If abdominal pain persists then more urgent surgical evaluation may be necessary. Perhaps we should have been see patient during this hospital stay. (2) Sigmoid stricture: Code(s): K56.699 - Other intestinal obstruction unspecified as to partial versus complete obstruction Status: Acute Assessment and Plan: Patient is known to have a sigmoid stricture from previous attempts at colonoscopy after previous episodes of diverticulitis. Ultimately this probably should be reviewed by surgery for possible surgical resection. Low residue diet may be beneficial initially. GI Consult Note Consult date/time: 03/05/23 14:49 Reason for consult: Diverticulitis. HPI: Tray Patel is a 58 year old male I am asked to see because of diverticulitis. Patient reports he developed rather diffuse abdominal pain but more so in the left side of his abdomen. He initially went to the emergency room on 02/24/2023. At that time CT scan confirmed sigmoid diverticulitis. Patient was placed on broad-spectrum antibiotics. Subsequently at home he developed nausea vomiting intolerance to the antibiotics. Ultimately he was maintained on Flagyl but other medications were discontinued. Patient presented to the emergency room yesterday found to have a evidence for dehydration with azotemia and was subsequently admitted the hospital for IV fluids. He continues to have rather vague diffuse abdominal pain more so in the left lower quadrant. Follow-up CT scan does confirm diverticulitis at present. Patient has a prior history of diverticulitis in 2018. At that time subsequent colonoscopy revealed stricturing in the sigmoid colon on the basis of diverticular disease. Review of Systems Review of Systems: review of systems noncontributory. [facility] Past Medical History Medical History AAA (abdominal aortic aneurysm) without rupture CAD in [place] artery Chronic pain of both knees Dyslipidemia Essential (primary) hypertension History of diverticulitis Hypothyroidism, unspecified Type 2 diabetes mellitus without complication, without long-term current use of insulin Vitamin D deficiency Surgical History Surgical History History of coronary artery stent placement x2 S/P right rotator cuff repair 12/10/2022 Family History Family History Mother Patient's mother is Father Patient's father is Sibling Diabetes mellitus Other Hypertension Social History Social History (Updated 03/04/23 @ 18:54 by Giulia Manzano NP) Social History: The patient is and lives with his . Lori savage had 1 child who . He works for [employer]. He continues to smoke. Code status full code Smoking packs per day: 1 Smoking cigarettes per day: 20.0 Years smoked: 40 Smoking pack-years: 40.00 Smoking status: Current every day smoker Tobacco type: cigarettes Second hand tobacco smoke exposure: No Additional smoking assessment comments: 1 / ppd [id number] Alcohol intake: former Alcohol use details: consumes beer socially Substance u
--- NOTE | 2023-03-05 15:54 | PM.IMPN ---
Progress Note: A&P Assessment and Plan (1) History of diverticulitis: Code(s): Z87.19 - Personal history of other diseases of the digestive system Status: Acute Assessment and Plan: I did continue with his IV Flagyl and the patient was not able to tolerate the Bactrim. This appears to be a chronic condition. The patient is seen Dr. Calixto in the past so I did consult Dr. Bustillo for further evaluation. Continue with IV pantoprazole 03/05/2023 interval history 58-year-old male presented with dizziness patient with history of sigmoid diverticulitis had been started on Flagyl and Bactrim developed nausea or vomiting resulting in dehydration, patient is being hydrated and states feeling much better, patient is being treated with Flagyl and tolerating, patient seen by GI stated patient with history of sigmoid diverticulitis with stricture, once patient's symptoms improved will need evaluation air contrast barium enema and may need a consultation with surgery service, will continue to hydrate the have PT OT evaluate and further recommendation to follow. (2) Hypotension: Code(s): I95.9 - Hypotension, unspecified Status: Acute Assessment and Plan: The patient appears to be dehydrated continue with IV fluids. Patient had continued to take his medication for blood pressure and was found to be hypotensive. The patient was nauseated but did not have any vomiting or diarrhea. Continue with IV fluids. Hold any diuretics and antihypertensive medications today and re-evaluate tomorrow. (3) Acute renal failure: Code(s): N17.9 - Acute kidney failure, unspecified Status: Acute Assessment and Plan: Patient had a poor oral intake. Continue with IV fluids. Continue with Zofran for the nausea pantoprazole Hold metformin due to the acute renal failure Hold lisinopril Hold hydrochlorothiazide. In the event that his renal failure does not resolve then you may consider renal ultrasound and consulting Nephrology. I believe this to be pre renal azotemia related to the dehydration. (4) Type 2 diabetes mellitus without complication, without long-term current use of insulin: Code(s): E11.9 - Type 2 diabetes mellitus without complications Status: Acute Assessment and Plan: Accu-Cheks AC and HS with sliding scale insulin and hypoglycemic protocol Holding metformin due to the acute renal failure (5) AAA (abdominal aortic aneurysm) without rupture: Qualifiers: Abdominal aorta location: infrarenal aorta Qualified Code(s): I71.43 - Infrarenal abdominal aortic aneurysm, without rupture Code(s): I71.4 - Abdominal aortic aneurysm, without rupture Status: Acute Assessment and Plan: The patient is aware of his aneurysm and has been monitoring it outpatient. (6) Nicotine abuse: Code(s): Z72.0 - Tobacco use Status: Acute Assessment and Plan: The patient has been offered a nicotine patch and has accepted Continue smoking cessation information. (7) Hypothyroidism, unspecified: Qualifiers: Hypothyroidism type: acquired Qualified Code(s): E03.9 - Hypothyroidism, unspecified Code(s): E03.9 - Hypothyroidism, unspecified Status: Acute Assessment and Plan: Continue with Synthroid and check thyroid level. Subjective Date/time seen: 03/05/23 15:54 Dizziness HPI-Narrative: This is a 58-year-old male patient who does have a history of hypertension.? The patient is on diuretics for his blood pressure.? The patient has been feeling dizzy for the last 2 days.? Today it was worse.? The patient was started on antibiotics last week for chronic diverticulitis.? The patient had been on Bactrim and Flagyl for at least 5 days.? The patient was so nauseated but no emesis.? No diarrhea.? The patient was not able to tolerate the antibiotics and then stop them.? He denies any fever chills at this point.? He has no diarrhea.? His appetite has been
[2023-03-05 17:08] LABS: Glucose Point of Care 205 mg/dl (65-105)
[2023-03-05] MEDS: INSULIN ASPART (*BKC) 100 UNITS/ML SUB-Q (17:14)
--- NOTE | 2023-03-05 17:44 | PM.CNGS ---
Assessment and Plan Assessment and plan (1) Diverticulitis: Code(s): K57.92 - Diverticulitis of intestine, part unspecified, without perforation or abscess without bleeding Status: Chronic Assessment and Plan: Patient does have indications for sigmoidectomy. This does not have to be done urgently or on this admission. I discussed this with the patient and his . I explained the procedure and that it is typically able to be done laparoscopically. I explained that this would involve removing the sigmoid colon and and the involved stricture. Currently, I think the patient has had enough antibiotic treatment and probably can be discharged off antibiotics when okay with Dr. Calixto and hospitalist service. I will plan on seeing him in the office in about 2 or 3 weeks after discharge. I did caution him to stop eating large amounts of peanuts and popcorn which he has been doing regularly. Otherwise can go home on a regular diet. Thank you for asking me to see this patient in consultation. (2) Sigmoid stricture: Code(s): K56.699 - Other intestinal obstruction unspecified as to partial versus complete obstruction Status: Chronic (3) Type 2 diabetes mellitus without complication, without long-term current use of insulin: Code(s): E11.9 - Type 2 diabetes mellitus without complications Status: Chronic (4) Hypothyroidism, unspecified: Qualifiers: Hypothyroidism type: acquired Qualified Code(s): E03.9 - Hypothyroidism, unspecified Code(s): E03.9 - Hypothyroidism, unspecified Status: Chronic (5) CAD in [place] artery: Code(s): I25.10 - Atherosclerotic heart disease of [place] coronary artery without angina pectoris Status: Chronic (6) AAA (abdominal aortic aneurysm) without rupture: Qualifiers: Abdominal aorta location: infrarenal aorta Qualified Code(s): I71.43 - Infrarenal abdominal aortic aneurysm, without rupture Code(s): I71.4 - Abdominal aortic aneurysm, without rupture Status: Chronic (7) Tobacco abuse: Code(s): Z72.0 - Tobacco use Status: Chronic History of Present Illness Consult details Consult date: 03/05/23 Reason for consult: other (Diverticulitis) Requesting physician: Gold oJe MD Narrative: The patient is a 58-year-old man who around the 21 of February was having pretty severe left lower quadrant abdominal pain. He came to the emergency room on February 24 with abdominal pain and was diagnosed with diverticulitis without evidence of complication. He was treated with oral antibiotics. His abdominal pain improved but then he had side effects from the oral antibiotics and developed nausea and vomiting. He stop taking the antibiotics. He then was having dizziness and came back to the emergency room yesterday. He was noted to have some lower blood pressures. Repeat CT scan showed stable chronic diverticulitis. He has been receiving IV metronidazole since his admission. He has not had any recurrence of his abdominal pain that he was on February 24. He tells me he has chronic discomfort in the left lower quadrant but no severe pain at this time. His dizziness has gone away and blood pressure has been stable. Looking through his old records, he was diagnosed with diverticulitis by CT scan in 2017 and and 2018. He seemed to not experience diverticulitis after that although during COV he may just have stayed away from receiving medical care. Since last June, he has had more bouts of left lower quadrant abdominal pain similar to his episodes of diverticulitis. Dr. Calixto performed a colonoscopy in January of 2019. There was a stricture in the sigmoid that precluded passage of the scope any farther. He did have an air contrast barium enema which suggested he had a stricture due to diverticulitis. He is seen now in consultation regarding his multiple episodes of diverticulitis, chronic left lower quadrant discomfort, div
[2023-03-05] MEDS: MELATONIN 5 MG TABLET PO (20:26)
[2023-03-05] MEDS: traMADol HCL (*CRX) 50 MG TABLET PO (20:26)
[2023-03-06] VITALS: PULSE 48
[2023-03-06 00:25] LABS: Glucose Point of Care 139 mg/dl (65-105)
[2023-03-06] MEDS: metroNIDAZOLE 500 MG/ISO 100ML 500 MG/100 ML BAG 100 MG IVPB (03:11)
[2023-03-06] MEDS: SODIUM CHLORIDE 0.9% IV 1,000 ML 125 ML IV CONT (03:11)
[2023-03-06 04:00] VITALS: PULSE 57
[2023-03-06 05:57] LABS: Hematocrit 36.3 % (42.0-52.0); Hemoglobin 12.4 g/dL (14.0-18.0); Mean Corpuscular HGB Conc 34.2 g/dl (32-36); Mean Corpuscular Hemoglobin 31.2 pg (26-34); Mean Corpuscular Volume 91.4 fl (80-100); Mean Platelet Volume 10.7 fl (7.4-10.4); Platelet Count Result 136 k/mm3 (150-375); Red Blood Count 3.97 M/mm3 (4.6-6.20); Red Cell Distribution Width 12.6 % (11.5-14.5); White Blood Count 3.5 K/mm3 (4.5-10.0)
[2023-03-06 05:59] LABS: Anion Gap 4 mmol/L (8-16); Blood Urea Nitrogen 12 mg/dL (9-20); Calcium 8.2 mg/dL (8.4-10.2); Carbon Dioxide 26 mmol/L (22-30); Chloride 104 mmol/L (98-107); Estimated CRCL calculation 90 ml/min; Estimated Glomerular Filt Rate > 60; Glucose 120 mg/dL (65-110); Magnesium 1.4 mg/dL (1.6-2.3); Potassium 3.8 mmol/L (3.4-5.0); Sodium 134 mmol/L (137-145)
[2023-03-06 06:00] VITALS: BP 148/70; PULSE 60; RESP 16; TEMP 36.7; O2SAT 100
[2023-03-06] MEDS: LEVOTHYROXINE SODIUM 25 MCG TABLET PO (06:38)
[2023-03-06 08:00] VITALS: PULSE 52
[2023-03-06 08:14] LABS: Glucose Point of Care 140 mg/dl (65-105)
[2023-03-06] MEDS: MAGNESIUM OXIDE 400 MG TABLET PO (08:39)
[2023-03-06] MEDS: CHOLECALCIFEROL 1,000 UNITS TABLET 2000 UNITS PO (08:39)
[2023-03-06] MEDS: PANTOPRAZOLE SODIUM IV 40 MG VIAL IV PUSH (08:39)
[2023-03-06] MEDS: NICOTINE (*PBKC) 21 MG PATCH 1 PATCH TRANSDERM (08:39)
[2023-03-06] MEDS: ASPIRIN 81 MG ENTERIC TABLET PO (08:39)
--- NOTE | 2023-03-06 09:08 | PM.DS ---
DS: Admitting Diagnosis Discharge Date 03/21/2023 Admitting Diagnosis Dizziness DS: Discharge Diagnosis Discharge Diagnosis (1) History of diverticulitis: Code(s): Z87.19 - Personal history of other diseases of the digestive system Status: Acute Assessment and Plan: I did continue with his IV Flagyl and the patient was not able to tolerate the Bactrim. This appears to be a chronic condition. The patient is seen Dr. Calixto in the past so I did consult Dr. Bustillo for further evaluation. Continue with IV pantoprazole 03/05/2023 interval history 58-year-old male presented with dizziness patient with history of sigmoid diverticulitis had been started on Flagyl and Bactrim developed nausea or vomiting resulting in dehydration, patient is being hydrated and states feeling much better, patient is being treated with Flagyl and tolerating, patient seen by GI stated patient with history of sigmoid diverticulitis with stricture, once patient's symptoms improved will need evaluation air contrast barium enema and may need a consultation with surgery service, will continue to hydrate the have PT OT evaluate and further recommendation to follow. (2) Hypotension: Code(s): I95.9 - Hypotension, unspecified Status: Acute Assessment and Plan: The patient appears to be dehydrated continue with IV fluids. Patient had continued to take his medication for blood pressure and was found to be hypotensive. The patient was nauseated but did not have any vomiting or diarrhea. Continue with IV fluids. Hold any diuretics and antihypertensive medications today and re-evaluate tomorrow. (3) Acute renal failure: Code(s): N17.9 - Acute kidney failure, unspecified Status: Acute Assessment and Plan: Patient had a poor oral intake. Continue with IV fluids. Continue with Zofran for the nausea pantoprazole Hold metformin due to the acute renal failure Hold lisinopril Hold hydrochlorothiazide. In the event that his renal failure does not resolve then you may consider renal ultrasound and consulting Nephrology. I believe this to be pre renal azotemia related to the dehydration. (4) Type 2 diabetes mellitus without complication, without long-term current use of insulin: Code(s): E11.9 - Type 2 diabetes mellitus without complications Status: Chronic Assessment and Plan: Accu-Cheks AC and HS with sliding scale insulin and hypoglycemic protocol Holding metformin due to the acute renal failure (5) AAA (abdominal aortic aneurysm) without rupture: Qualifiers: Abdominal aorta location: infrarenal aorta Qualified Code(s): I71.43 - Infrarenal abdominal aortic aneurysm, without rupture Code(s): I71.4 - Abdominal aortic aneurysm, without rupture Status: Chronic Assessment and Plan: The patient is aware of his aneurysm and has been monitoring it outpatient. (6) Nicotine abuse: Code(s): Z72.0 - Tobacco use Status: Acute Assessment and Plan: The patient has been offered a nicotine patch and has accepted Continue smoking cessation information. (7) Hypothyroidism, unspecified: Qualifiers: Hypothyroidism type: acquired Qualified Code(s): E03.9 - Hypothyroidism, unspecified Code(s): E03.9 - Hypothyroidism, unspecified Status: Chronic Assessment and Plan: Continue with Synthroid and check thyroid level. DS: Summary Hospital Course Reason for hospitalization: Dizziness Narrative: This is a 58-year-old male patient who does have a history of hypertension.? The patient is on diuretics for his blood pressure.? The patient has been feeling dizzy for the last 2 days.? Today it was worse.? The patient was started on antibiotics last week for chronic diverticulitis.? The patient had been on Bactrim and Flagyl for at least 5 days.? The patient was so nauseated but no emesis.? No diarrhea.? The patient was not able to tolerate the antibiotics
--- NOTE | 2023-03-06 09:12 | WPDGIPROGNO ---
Progress Note: A&P Assessment and Plan (1) Diverticulitis: Code(s): K57.92 - Diverticulitis of intestine, part unspecified, without perforation or abscess without bleeding Status: Chronic Assessment and Plan: Patient admitted because of ongoing diverticulitis. CT scan imaging confirms this finding. Patient is known to have sigmoid stricture. Surgical resection anticipated. Appreciate surgical opinion and follow-up. Plan for outpatient surgical follow-up. Complete course of antibiotics as prescribed patient may be discharged today he may need a low residue diet for now. (2) Sigmoid stricture: Code(s): K56.699 - Other intestinal obstruction unspecified as to partial versus complete obstruction Status: Chronic Subjective Date/time seen: 03/06/23 09:12 Interval history: Patient alert much more comfortable today. Denies abdominal pain. He has completed course of antibiotics. Appreciate surgical insight for stricture. Review of Systems Review of Systems: Review of systems noncontributory. Exam Narrative: Physical exam reveals patient to be alert comfortable at rest he is anicteric. Sitting upright today. Vital signs stable. Lungs are clear. Heart without murmur. Abdomen bowel sounds present soft no tenderness. Abdominal pain improving. Objective Data Vital Signs Vital Signs: Vital Signs - 24 hr 03/05/23 12:00 03/05/23 14:00 03/05/23 15:39 Temperature 98.3 F Pulse Rate 49 L 58 L Respiratory Rate 16 Blood Pressure 157/69 H Pulse Oximetry 100 Oxygen Delivery Room Air 03/05/23 16:00 03/05/23 20:00 03/05/23 22:00 Temperature 98.3 F Pulse Rate 56 L 64 56 L Respiratory Rate 16 Blood Pressure 148/70 H Pulse Oximetry 100 Oxygen Delivery 03/06/23 00:00 03/06/23 04:00 03/06/23 06:00 Temperature 98.1 F Pulse Rate 48 L 57 L 60 Respiratory Rate 16 Blood Pressure 148/70 H Pulse Oximetry 100 Oxygen Delivery Intake/Output Intake/Output: Intake & Output 03/03/23 03/04/23 03/05/23 03/06/23 23:59 23:59 23:59 23:59 Intake Total 3640 4690 1000 Output Total 3300 550 Balance 3640 1390 450 Meds/Results Medications: Active Medications Generic Name Dose Route Start Last Admin Trade Name Freq PRN Reason Stop Dose Admin Aspirin 81 mg 03/05/23 09:00 03/06/23 08:39 Aspirin 81 Mg Enteric Tablet PO 81 mg DAILY HA Administration Dextrose 12.5 gm 03/04/23 18:43 Dextrose 50% 25 Gm/50 Ml Syringe IV PUSH PRN PRN Hypoglycemia Protocol Glucagon 1 mg 03/04/23 18:43 Glucagon For Inj 1 Mg Vial IM PRN PRN Hypoglycemia Protocol Glucose 15 gm 03/04/23 18:43 Glucose Oral Gel 15 Gm Of Glucse In 37.5 Gm Tube PO PRN PRN Hypoglycemia Protocol Sodium Chloride 1,000 mls @ 125 mls/hr 03/04/23 14:20 03/06/23 03:11 Normal Saline Iv IV CONT 125 mls/hr .Q8H HA Administration Metronidazole 500 mg in 100 mls @ 100 mls/hr 03/04/23 19:00 03/06/23 03:11 Flagyl 500 Mg/Iso Soln 100 Ml IVPB 100 mls/hr Q8H HA Administration Dextrose 1,000 mls @ 100 mls/hr 03/04/23 18:43 Dextrose 5% 1,000 Ml IVPB PRN PRN Hypoglycemia Protocol Insulin Aspart 2 - 5 units 03/05/23 08:00 03/06/23 08:34 Insulin Aspart (*Bkc) 100 Units/Ml SUB-Q Not Given TIDWM HA Protocol Levothyroxine Sodium 25 mcg 03/05/23 06:30 03/06/23 06:38 Levothyroxine Sodium 25 Mcg Tablet PO 25 mcg DAILY@0630 HA Administration Magnesium Oxide 400 mg 03/05/23 09:00 03/06/23 08:39 Magnesium Oxide 400 Mg Tablet PO 400 mg QAM HA Administration Melatonin 5 mg 03/04/23 22:35 03/05/23 20:26 Melatonin 5 Mg Tablet PO 5 mg HS HA Administration Nicotine 1 patch 03/04/23 09:00 03/06/23 08:39 Nicotine (*Pbkc) 21 Mg Patch TRANSDERM 1 patch QAM HA Administration Ondansetron HCl 4 mg 03/04/23 14:16 Ondansetron Inj 4 Mg/2
== END 2023-03-06 11:00 | disposition home or self-care (01) ==
LOC: ANHED 12:21 → ANH3MED 16:39
PROVIDERS: Nurse Practitioner; Admitting Provider Internal Medicine; Emergency Provider General Practice; PCP Family Medicine; Visit Provider Family Medicine
DX: K57.32 Diverticulitis of large intestine without perforation or abscess without bleeding (principal); K56.699 Other intestinal obstruction unspecified as to partial versus complete obstruction; Z87.19 Personal history of other diseases of the digestive system; I95.9 Hypotension, unspecified; N17.9 Acute kidney failure, unspecified; R53.1 Weakness; I71.43 Infrarenal abdominal aortic aneurysm, without rupture; I10 Essential (primary) hypertension; R00.1 Bradycardia, unspecified; I25.10 Atherosclerotic heart disease of native coronary artery without angina pectoris; Z95.5 Presence of coronary angioplasty implant and graft; E03.9 Hypothyroidism, unspecified; E11.9 Type 2 diabetes mellitus without complications; E55.9 Vitamin D deficiency, unspecified; F17.210 Nicotine dependence, cigarettes, uncomplicated; F10.90 Alcohol use, unspecified, uncomplicated; E87.1 Hypo-osmolality and hyponatremia; R63.0 Anorexia; Z68.24 Body mass index [BMI] 24.0-24.9, adult; Z79.82 Long term (current) use of aspirin; Z79.84 Long term (current) use of oral hypoglycemic drugs; Z79.891 Long term (current) use of opiate analgesic; Z79.899 Other long term (current) drug therapy
CPT/HCPCS: 36415; 71045; 74176; 80048; 80053; 81001; 82948; 83036; 83605; 83690; 83735; 84439; 84443; 84480; 85025; 85027; 85610; 85730; 86140; 87040; 93005; 96361; 96365; 96366; 96367; 96374; 96375; 96376; 97161; 99285; A9270; C9113; G0378; J1815; J3475; J7030

== ENCOUNTER 2023-09-23 15:33 | Outpatient (CLI) | payer OTHER, SELFPAY ==
--- NOTE | ~2023-09-23 | MR_ITS ---
EXAMINATION: MR lumbar spine wo/w con DATE: 09/23/2023 16:34 INDICATION: R20.2 - Paresthesia of skin . TECHNIQUE: Magnetic resonance imaging (MRI) of the lumbar spine was performed without and with 15 cc MultiHance intravenous contrast. Sequences included sagittal T2-weighted frFSE, sagittal T2-weighted FSE STIR, sagittal T1-weighted FSE, and axial T2-weighted FSE. Postcontrast sequences included sagitt al and axial T1 FSE FS. COMPARISON: CT abdomen pelvis 03/04/2023. FINDINGS: The last fully formed and hydrated disc is designated L5-S1. The marrow signal is benign an d homogenous. Conus terminates at L2. Mild loss of disc height at T11-12, and L3-4 through L5-S1. No abnormal enhancement. The following disc levels are specifically discussed: T11-T12: The disc does not extend beyond the endplate margin. There is no facet joint osteoarthritis. There is no neural foraminal stenosis. There is no central canal stenosis. T12-L1: The disc does not extend beyond the endplate margin. There is no facet joint osteoarthritis. There is no neural foraminal stenosis. There is no central canal stenosis. L1-L2: The disc does not extend beyond the endplate margin. There is mild bilateral facet joint osteo arthritis. There is mild bilateral neural foraminal stenosis. There is no central canal stenosis. L2-L3: Mild diffuse bulge. There is mild bilateral facet joint osteoarthritis. There is mild bilatera l neural foraminal stenosis. There is no central canal stenosis. L3-L4: Mild diffuse bulge. There is mild bilateral facet joint osteoarthritis. There is mild bilatera l neural foraminal stenosis. There is no central canal stenosis. L4-L5: Mild diffuse bulge. There is moderate bilateral facet joint osteoarthritis. There is mild righ t and mild-moderate left neural foraminal stenosis. There is no central canal stenosis. L5-S1: The disc does not extend beyond the endplate margin. There is moderate bilateral facet joint o steoarthritis. There is no neural foraminal stenosis. There is no central canal stenosis. IMPRESSION: No severe central canal or neural foraminal stenosis. Multilevel mild lumbar degenerative disc disease. Moderate facet arthropathy at L4-5 and L5-S1. Multilevel bilateral neural foraminal narrowing, mild-moderate on the left at L4-5 Reviewed, dictated and finalized at location K. IMPRESSION: No severe central canal or neural foraminal stenosis. Multilevel mild lumbar degenerative disc disease. Moderate facet arthropathy at L4-5 and L5-S1. Multilevel bilateral neural foraminal narrowing, mild-moderate on the left at L 4-5
== END 2023-09-23 15:34 | disposition home or self-care (01) ==
LOC: ANHIMG 15:34
PROVIDERS: PCP Family Medicine; Visit Provider Nurse Practitioner Family
DX: M51.36 Other intervertebral disc degeneration, lumbar region (principal); M12.88 Other specific arthropathies, not elsewhere classified, other specified site; M47.816 Spondylosis without myelopathy or radiculopathy, lumbar region; G89.29 Other chronic pain
CPT/HCPCS: 72158; A9577

== ENCOUNTER 2023-10-13 00:34 | Day surgery (SDC) | payer OTHER, SELFPAY ==
[2023-09-28 14:11] VITALS: BMI 25.1
--- NOTE | 2023-10-09 11:01 | SUR.PREOP ---
Patient called regarding upcoming procedure. No answer. Message left.
[2023-10-13 06:38] VITALS: BP 107/72; PULSE 81; RESP 18; TEMP 36.3; O2SAT 100; BMI 24.5
[2023-10-13] MEDS: LACTATED RINGERS 1,000 ML 150 ML IV CONT (06:58)
[2023-10-13 07:01] LABS: Glucose Point of Care 95 mg/dl (65-105)
--- NOTE | 2023-10-13 07:27 | PM.HPGS ---
History of Present Illness History of Present Illness Consent: Risks, benefits, and alternatives have been discussed and questions answered. Patient agrees to proceed with procedure. Chief complaint: Early Satiety, Abnormal weight loss Narrative: Tray Patel is a 58 year old male presents for EGD. Patient has a history of a diverticulitis. Hospitalized earlier this year. 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 Patient has various aches and pains. He has nausea. He becomes full quickly. He is referred today for an EGD prior to any consideration of surgery. He also complains of ongoing back pain which apparently is chronic. Review of Systems Review of Systems: Review of systems noncontributory. [facility] Past Medical History Medical History AAA (abdominal aortic aneurysm) without rupture CAD in [place] artery Chronic pain Chronic pain of both knees Dyslipidemia Essential (primary) hypertension History of diverticulitis Hypothyroidism, unspecified Paresthesia Type 2 diabetes mellitus without complication, without long-term current use of insulin Vitamin D deficiency Surgical History Surgical History History of coronary artery stent placement x2 S/P right rotator cuff repair 12/10/2022 Family History Family History Mother Patient's mother is Father Patient's father is Sibling Diabetes mellitus Other Hypertension Social History Social History Social History: The patient is and lives with his . Lori savage had 1 child who . He works for [employer]. He continues to smoke. Code status full code Smoking packs per day: 1.5 Smoking cigarettes per day: 30.0 Years smoked: 40 Smoking pack-years: 60.00 Smoking status: Current every day smoker Tobacco type: cigarettes Second hand tobacco smoke exposure: No Additional smoking assessment comments: 1 1/2 ppd [id number] Alcohol intake: former Drinks per week: 30 Alcohol use details: quit jul 2022 Substance use: former Substance use type: marijuana Lack of Transportation: No Lack of Food: Never True Current Housing: I Have Housing Concerned About Future Housing: No Difficulty Paying Gas/Electric Bills: No Difficulty Paying for Meds: No Currently Unemployed: No Education: High School Diploma/GED Difficulty w/ Childcare or Family Care: No Living arrangements: with family Occupation/Education: occupation Gender identity (if verbalized by the patient): Male Spiritual care concerns: No Meds Home Medications and Allergies Home Medications Medication Instructions Recorded Confirmed Type aspirin 81 mg tablet,delayed 81 mg PO DAILY 05/17/20 09/28/23 History release (Adult Low Dose Aspirin) cholecalciferol (vitamin D3) 50 50 mcg PO DAILY 03/04/21 09/28/23 History mcg (2,000 unit) capsule lisinopril 20 mg tablet 30 mg PO BID 03/04/23 09/28/23 History melatonin 5 mg tablet 5 mg PO HS #30 tabs 03/06/23 09/28/23 Rx hydrochlorothiazide 25 mg tablet See Rx Instructions .Route 05/07/23 09/28/23 Rx .COMPLEX #90 tabs metformin 1,000 mg tablet 1,000 mg PO BID #180 tabs 06/24/23 09/28/23 Rx duloxetine 30 mg capsule,delayed 30 mg PO DAILY #7 caps 07/08/23 09/28/23 Rx release lidocaine 5 % topical patch 3 patch topical DAILY #15 ea 07/08/23 09/28/23 Rx pantoprazole 40 mg tablet,delayed 40 mg PO BID #180 tabs 07/30/23 09/28/23 Rx release levothyroxine 25 mcg tablet 25 mcg PO DAILY #90 tabs 07/31/23 09/28/23 Rx duloxetine 60 mg capsule,delayed 60 mg PO DAILY #30 caps 08/05/23 09/28/23 Rx release meloxicam 15 mg tablet 15 mg PO DA
--- NOTE | 2023-10-13 07:49 | WPDANESEPPF ---
Anes - Initial Pre Proc Eval Procedure: Operation Date: 10/13/23 08:00 Proposed Procedures p Esophagogastroduodenoscopy - Tray Calixto MD Date/Time: 10/13/23 07:49 Surgeon: Tray Calixto MD Pre Op Diagnosis: Early Satiety, Abnormal weight loss Patient Data Age: 58 Gender: M Height: 1.73 m Weight: 73 kg Last Vital Signs Temp 36.3 C L 10/13/23 06:38 Pulse 81 10/13/23 06:38 Resp 18 10/13/23 06:38 BP 107/72 10/13/23 06:38 Pulse Ox 100 10/13/23 06:38 O2 Del Method Room Air 10/13/23 06:38 Allergies Allergy/AdvReac Type Severity Reaction Status Date / Time amoxicillin AdvReac Intermediate Nausea and Verified 09/28/23 14:05 Vomiting sulfamethoxazole AdvReac Nausea and Verified 09/28/23 14:05 [From Bactrim] Vomiting trimethoprim [From Bactrim] AdvReac Nausea and Verified 09/28/23 14:05 Vomiting Home Medications Medication Instructions Recorded Confirmed Type aspirin 81 mg tablet,delayed 81 mg PO DAILY 05/17/20 09/28/23 History release (Adult Low Dose Aspirin) cholecalciferol (vitamin D3) 50 50 mcg PO DAILY 03/04/21 09/28/23 History mcg (2,000 unit) capsule lisinopril 20 mg tablet 30 mg PO BID 03/04/23 09/28/23 History melatonin 5 mg tablet 5 mg PO HS #30 tabs 03/06/23 09/28/23 Rx hydrochlorothiazide 25 mg tablet See Rx Instructions .Route 05/07/23 09/28/23 Rx .COMPLEX #90 tabs metformin 1,000 mg tablet 1,000 mg PO BID #180 tabs 06/24/23 09/28/23 Rx duloxetine 30 mg capsule,delayed 30 mg PO DAILY #7 caps 07/08/23 09/28/23 Rx release lidocaine 5 % topical patch 3 patch topical DAILY #15 ea 07/08/23 09/28/23 Rx pantoprazole 40 mg tablet,delayed 40 mg PO BID #180 tabs 07/30/23 09/28/23 Rx release levothyroxine 25 mcg tablet 25 mcg PO DAILY #90 tabs 07/31/23 09/28/23 Rx duloxetine 60 mg capsule,delayed 60 mg PO DAILY #30 caps 08/05/23 09/28/23 Rx release meloxicam 15 mg tablet 15 mg PO DAILY #30 tabs 08/19/23 09/28/23 Rx methylprednisolone 4 mg tablets in See Rx Instructions PO PER PKG DIR 08/20/23 09/28/23 Rx a dose pack #21 ea tramadol 50 mg tablet 50 mg PO Q12H PRN pain #30 tabs 09/14/23 09/28/23 Rx cyclobenzaprine 10 mg tablet 10 mg PO TID PRN Muscle Spasm #90 10/06/23 10/13/23 Rx tabs carvedilol 12.5 mg tablet See Rx Instructions .Route 10/09/23 10/13/23 Rx .COMPLEX #180 tabs Laboratory Tests 10/13/23 06:57 POC Capillary Glucose 95 mg/dl (65-105) Patient hx anesthesia problems: none Family hx anesthesia problems: none Results Review: All pre-operative results and documents have been reviewed as part of the pre-operative evaluation. [facility] Past Medical History Medical History AAA (abdominal aortic aneurysm) without rupture CAD in [place] artery Chronic pain Chronic pain of both knees Dyslipidemia Essential (primary) hypertension History of diverticulitis Hypothyroidism, unspecified Paresthesia Type 2 diabetes mellitus without complication, without long-term current use of insulin Vitamin D deficiency Surgical History Surgical History History of coronary artery stent placement x2 S/P right rotator cuff repair 12/10/2022 Family History Family History Mother Patient's mother is Father Patient's father is Sibling Diabetes mellitus Other Hypertension Social History Social History Social History: The patient is and lives with his . Lori savage had 1 child who . He works for [employer]. He continues to smoke. Code status full code Smoking packs per day: 1.5 Smoking cigarettes per day: 30.0 Years smoked: 40 Smoking pack-years: 60.00 Smoking status: Current every day smoker Tobac
[2023-10-13 08:16] VITALS: BP 125/75; PULSE 81; RESP 18; O2SAT 100
[2023-10-13 08:26] VITALS: BP 129/80; PULSE 66; RESP 20; O2SAT 100
[2023-10-13 08:36] VITALS: BP 150/86; PULSE 63; RESP 22; O2SAT 100
== END 2023-10-13 08:46 | disposition home or self-care (01) ==
PROVIDERS: PCP Family Medicine; Visit Provider Internal Medicine Gastroenterology
PROC: 0DJ08ZZ Inspection of Upper Intestinal Tract, Via Natural or Artificial Opening Endoscopic (ICD-10-PCS; CPT 43235; principal; 2023-10-13 08:00)
DX: K56.699 Other intestinal obstruction unspecified as to partial versus complete obstruction (principal); E78.5 Hyperlipidemia, unspecified; I10 Essential (primary) hypertension; E03.9 Hypothyroidism, unspecified; E11.9 Type 2 diabetes mellitus without complications; E55.9 Vitamin D deficiency, unspecified; I71.40 Abdominal aortic aneurysm, without rupture, unspecified; K57.92 Diverticulitis of intestine, part unspecified, without perforation or abscess without bleeding; G89.29 Other chronic pain; F17.210 Nicotine dependence, cigarettes, uncomplicated; F12.90 Cannabis use, unspecified, uncomplicated; Z79.82 Long term (current) use of aspirin; Z79.84 Long term (current) use of oral hypoglycemic drugs; Z79.891 Long term (current) use of opiate analgesic; Z95.5 Presence of coronary angioplasty implant and graft; Z86.79 Personal history of other diseases of the circulatory system
CPT/HCPCS: 43239; 82948; 87081; J2001; J2704; J7120

== ENCOUNTER 2024-03-04 15:53 | Outpatient (CLI) | payer OTHER, SELFPAY ==
--- NOTE | ~2024-03-04 | MR_ITS ---
EXAMINATION: MR abdomen wo/w con DATE: 03/04/2024 16:53 INDICATION: Abnormal weight loss TECHNIQUE: Magnetic resonance imaging (MRI) of the abdomen was performed without and with 15 mL Multi laila intravenous contrast. Sequences included coronal T2-weighted SS-FSE, coronal and axial FS 2D-F IESTA, axial STIR FSE, axial T2-weighted SS-FSE, axial T2-weighted FS SS-FSE, axial diffusion-weighte d SE, axial dual-echo T1-weighted FSPGR, and axial and coronal T1-weighted LAVA. Postcontrast axial T 1-weighted LAVA images were obtained in a time course. Postcontrast coronal T1-weighted LAVA images w ere obtained. COMPARISON: CT abdomen and pelvis dated 03/04/2023 FINDINGS: Heart size is normal. No pericardial or pleural effusion. Liver, gallbladder, spleen, pancreas, bilat eral adrenal glands and kidneys are normal. Visualized portions of bowels are normal with no obstruct ion. No pathologically enlarged abdominal or upper pelvic lymphadenopathy. Fusiform ectasia of the in frarenal aorta measuring up to 3.3 cm in maximal diameter. Bones are unremarkable with normal marrow signal throughout. IMPRESSION: 1. 3.3 similar fusiform ectasia of the infrarenal abdominal aorta. Otherwise unremarkable abdominal M RI. Reviewed, dictated and finalized at location A. IMPRESSION: 1. 3.3 similar fusiform ectasia of the infrarenal abdominal aorta. Otherwise un remarkable abdominal MRI.
== END 2024-03-04 15:54 ==
PROVIDERS: PCP Nurse Practitioner Family; Visit Provider Nurse Practitioner Family
DX: R63.4 Abnormal weight loss (principal); K56.699 Other intestinal obstruction unspecified as to partial versus complete obstruction; K57.32 Diverticulitis of large intestine without perforation or abscess without bleeding; R10.84 Generalized abdominal pain; R14.0 Abdominal distension (gaseous)
CPT/HCPCS: 74183; A9577

== ENCOUNTER 2025-01-18 13:50 | Outpatient (CLI) | payer OTHER, SELFPAY ==
--- OUTSIDE RECORDS SUMMARY | 2025-01-18 15:42 | XMS_ITS | Continuity of Care Document ---
Author Organization [facility] Address [address] [place] [address] [place] [address] Phone Care Team Providers Care Facilities Director Name Role Phone Maciej Esteves MD Unavailable Unavailable Advance Directives Directive Yes / No Effective Date File Name No Information Encounters Encounter Description Practice Location Reason(s) For Visit Diagnoses Date Provider Providers Copied on Encounter [facility], [id number] [place] [address] [address], [place], [place], [id number], [place] tel:[phone] [facility] No Information [address] [address], [place], [place], [id number], [place]. tel:[phone] Family History Family Member Type Diagnosis Age [...]
--- OUTSIDE RECORDS SUMMARY | 2025-01-18 15:42 | XMS_ITS | Clinical Summary ---
Author Organization [facility] Address [address] [place] [address] Care Team Providers Care Driver Education Road Instructor Name Role Phone Kavon Owen MD Primary Care Provider [phone] Source Comments [facility],non-owned Affiliates and Associated Physician Practices is amultiple site organization consisting of ambulatory clinics and hospital sitesin [place], [place], [place] and [place]. This disclosure is being madepursuant to the Care Everywhere program and may not contain all information available regarding this patient. Last updated 18.[facility] Allergies No known active allergies Medications * Be aware that medications may not be up to date on this document. Alwaysverify current medications with the patient. Medication Sig Dispensed Refills Start Date End Date Status lisinopril (PRINIVIL; ZESTRIL) 10 MG tablet Take 10 mg by mouth once daily Active levothyroxine (SYNTHROID) 25 MCG tablet Take 25 mcg by mouth daily before breakfast Active meloxicam (MOBIC) 15 MG tablet Take 15 mg by mouth once daily Active aspirin (ASPIRIN) 81 MG chew tablet Take 1 Tab by mouth once daily 09/19/2016 Active nitroGLYCERIN (NITROSTAT) 0.4 MG tablet Dissolve 1 Tab under the tongue every 5 minutes as needed for Angina (Chest pain) 10 Tab 09/19/2016 Active metFORMIN (GLUCOPHAGE) 1000 MG tablet Take 1 Tab by mouth 2 times daily with morning and evening meal Resume on 09/20/16 60 Tab 1 09/19/2016 Active atorvastatin (LIPITOR) 40 MG tablet Take 1 Tab by mouth at bedtime 30 Tab 1 09/19/2016 Active metoprolol tartrate (LOPRESSOR) 25 MG tablet Take 1 Tab by mouth 2 times daily 60 Tab 1 09/19/2016 Active clopidogrel (PLAVIX) 75 MG tablet Take 1 Tab by mouth once daily 30 Tab 1 09/19/2016 Active Social History Tobacco Use Types Packs/Day Years Used Date Smoking Tobacco: Every Day Cigarettes Tobacco Cessation:Ready to Q uit: No; Counseling Given: Yes Alcohol Use Standard Drinks/Week Comments Yes 21 (1 standard drink = 0.6 oz pu re alcohol) Sex and Gender Information Value Date Recorded Sex Assigned at Not on file Gender Identity Not on file Sexual Orientation Not on file Last Filed Vital Signs Vital Sign Reading Time Taken Comments Blood Pressure 133/81 09/20/2016 10:16 AM CDT Pulse 77 09/20/2016 10:16 AM CDT Temperature 36.9 C (98.5 F) 09/20/2016 10:16 AM CDT Respiratory Rate 20 09/20/2016 10:16 AM CDT Oxygen Saturation 95% 09/20/2016 10:16 AM CDT Inhaled Oxygen Concentration - - Weight 89.7 kg (197 lb 12 oz) 09/20/2016 6:47 AM CDT Height 177.8 cm (5' 10 ) 09/18/2016 6:08 PM CDT Body Mass Index 28.37 09/18/2016 6:08 PM CDT Plan of Treatment Health Maintenance Due Date Last Done Comments COLOGUARD (AGES 45-75) - COL ON CA SCREENING 1965 COLON MONITORING 1965 COLONOSCOPY - COLON CA SCREENING 1965 CT COLONOGRAPHY - COLON CA SCREENING 1965 Colorectal Cancer Screening 1965 FIT - COLON CA SCREENING 1965 FLEX SIG - COLON CA SCREENING 1965 HIV SCREENING 1980 HEPATITIS C SCREENING 01/03/1983 DTAP/TDAP/TD VACCINES (1 - Tdap) 1984 PNEUMOCOCCAL VACCINE (1 of 2 - PCV) 1984 PNEUMOCOCCAL VACCINE 50+ (1 of 1 - PCV) 2015 ZOSTER VACCINE (1 of 2) 2015 COVID-19 VACCINE ( - 2023-2 5 season) 2024 INFLUENZA VACCINE (#1) 2024 DEPRESSION SCREENING 11/23/2024 Respiratory Syncytial Virus (RSV) Vaccine Pt: or over 60 yrs (1 - 1-dose 75+ series) 2040 HEPATITIS B VACCINE Aged Out No longe r eligible based on patient's age to complete this topic HIB VACCINE Aged Out No longer eligi ble based on patient's age to complete this topic HPV VACCINE Aged Out No longer eligi ble based on patient's age to complete this topic MENINGOCOCCAL (Group B) VACCINE Aged Out No longer eligible based on patient's age to complete this topic MENINGOCOCCAL VACCINE Aged Out No abbie samantha eligible based on patient's age to complete this topic Additional Health Concerns Infection Onset Date Last Indicated MRSA 09/18/2016 09/18/2016 Advance Directives * Full Code (Latest Code Status on File) Date Activated Date Inactivated Comments 09/18/2016 8:51 PM 09/20/2016 12:52 PM * Full Code Date Activated Date Inactivated Comments 09/18/2016 8:22 PM 09/18/2016 8:51 PM Care Teams Driver Education Road Instructor Relationship Specialty Start Date End Date Kavon Owen MD [address] [address] PCP - General Internal Medicine 09/18/16
--- OUTSIDE RECORDS SUMMARY | 2025-01-18 15:42 | XMS_ITS | Clinical Summary ---
Author Organization [employer] [facility] Address [address] 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 Gender Identity Not on file Sexual Orientation Not on file Plan of Treatment Health Maintenance Due Date Last Done Comments DTAP/TDAP/TD VACCINES (1 - Tdap) 1984 COLORECTAL SCREENING 2010 Colorectal Cancer Screening 2010 FIT-DNA Q 3 years 2010 FIT/FOBT Q 1 year 2010 Flex Sig/CT Colonography Q 5 years 2010 ZOSTER VACCINE (1 of 2) 2015 INFLUENZA VACCINE (#1) 2024 RSV VACCINE (60+ or ) (1 - 1-dose 75+ series) 2040 HEPATITIS B VACCINES Aged Out No long er eligible based on patient's age to complete this topic PNEUMOCOCCAL VACCINE 0-64 YEARS Aged Out No longer eligible based on patient's age to complete this topic
--- OUTSIDE RECORDS SUMMARY | 2025-01-18 15:42 | XMS_ITS | Referral Summary ---
Author Organization [facility] [employer] Address [address] [place] [address] Care Team Providers Care Coin Machine Servicer Repairer Name Role Phone Kavon Owen MD Primary Care Provider [phone] Source Comments [facility],non-owned Affiliates and Associated Physician Practices is amultiple site organization consisting of ambulatory clinics and hospital sitesin [place], [place], [place] and [place]. This disclosure is being madepursuant to the Care Everywhere program and may not contain all information available regarding this patient. Last updated 18.[facility] [employer] Allergies No known active allergies Medications * [...] Mass Index 28.37 09/18/2016 6:08 PM CDT Functional Status Functional Status Response Date of Assess ment Is person deaf or have serious hearing difficult y? No 09/18/2016 Is person blind or have serious difficulty seein g? No 09/18/2016 Does person have serious dif ficulty walking/climbing stairs? No 09/18/2016 Does person have difficulty dressing/bathing? No 09/18/2016 Does person have difficulty doing errands alone? No 09/18/2016 Cognitive Status Response Date of Assessm ent Does person have difficulty concentrating/remembering/making decisions? No 09/18/2016 Plan of Treatment Not on file Additional Health Concerns Infection Onset Date Last Indicated MRSA 09/18/2016 09/18/2016 Advance Directives * Full Code (Latest Code Status on File) Date Activated Date Inactivated Comments 09/18/2016 8:51 PM 09/20/2016 12:52 PM * Full Code Date Activated Date Inactivated Comments 09/18/2016 8:22 PM 09/18/2016 8:51 PM Care Teams Coin Machine Servicer Repairer Relationship Specialty Start Date End Date Kavon Owen MD [address] [address] PCP - General Internal Medicine 09/18/16
--- OUTSIDE RECORDS SUMMARY | 2025-01-18 15:42 | XMS_ITS | Encounter Summary ---
Author Organization [employer] Address [address] [place] [address] Care Team Providers Care Seaman Name Role Phone Unavailable Primary Care Provider Unavailabl e Encounter Details Date Type Department Care Team (Late st Contact Info) Description 03/28/1999 Outpatient Historical HIS MD Wali PEREZ, Jim Gordon MD [address] [place] [address] Social History Tobacco Use Types Packs/Day Years Used Date Smoking Tobacco: Never Assessed Sex and Gender Information Value Date Recorded Sex Assigned at Not on file Legal Sex Male 4:27 AM [employer] Gender Identity Not on file Sexual Orientation Not on file documented as of this encounter Plan of Treatment Not on file documented as of this encounter Visit Diagnoses Not on filedocumented in this encounter
--- OUTSIDE RECORDS SUMMARY | 2025-01-18 15:43 | XMS_ITS | Patient Health Summary ---
Author Organization [facility] Address [address] [place] [address] Care Team Providers Care Commodity Management Specialist Name Role Phone Kavon Owen MD Primary Care Provider [phone] Note from [facility],non-owned Affiliates and Associated Physician Practices is amultiple site organization consisting of ambulatory clinics and hospital sitesin [place], [place], [place] and [place]. This disclosure is being madepursuant to the Care Everywhere program and may not contain all information available regarding this patient. Last updated 18.[facility] [employer] Allergies No known active allergies Medications * Be aware that medications may not be up to date on this document. Alwaysverify current medications with the patient. * lisinopril (PRINIVIL; ZESTRIL) 10 MG tablet Take 10 mg by mouth once daily * levothyroxine (SYNTHROID) 25 MCG tablet Take 25 mcg by mouth daily before breakfast * meloxicam (MOBIC) 15 MG tablet Take 15 mg by mouth once daily * aspirin (ASPIRIN) 81 MG chew tablet(Started 09/19/2016) Take 1 Tab by mouth once daily * nitroGLYCERIN (NITROSTAT) 0.4 MG tablet(Started 09/19/2016) Dissolve 1 Tab under the tongue every 5 minutes as needed for Angina (Chest pain) * metFORMIN (GLUCOPHAGE) 1000 MG tablet(Started 09/19/2016) Take 1 Tab by mouth 2 times daily with morning and evening meal Resume on 09/20/16 1 refill remaining * atorvastatin (LIPITOR) 40 MG tablet(Started 09/19/2016) Take 1 Tab by mouth at bedtime 1 refill remaining * metoprolol tartrate (LOPRESSOR) 25 MG tablet(Started 09/19/2016) Take 1 Tab by mouth 2 times daily 1 refill remaining * clopidogrel (PLAVIX) 75 MG tablet(Started 09/19/2016) Take 1 Tab by mouth once daily 1 refill remaining Social History Tobacco Use Types Packs/Day Years [...] Mass Index 28.37 09/18/2016 6:08 PM CDT Procedures * LAB RESULTS ORDER(Performed 09/24/2016) * CARDIAC EKG ORDER(Performed 09/23/2016) * CARDIAC EKG ORDER(Performed 09/23/2016) * CARDIAC RHYTHM STRIP ORDER(Performed 09/23/2016) * GLUCOSE - POINT OF CARE(Performed 09/20/2016) * MAGNESIUM BLOOD(Performed 09/20/2016) * RENAL FUNCTION PANEL(Performed 09/20/2016) * CBC W AUTO DIFFERENTIAL(Performed 09/20/2016) * CARDIAC PROCEDURE ORDER(Performed 09/19/2016) * CARDIAC EKG ORDER(Performed 09/19/2016) * ECHOCARDIOGRAM 2D WITH DOPPLER(Performed 09/19/2016) Performed for ST elevation (STEMI) myocardial infarction involving right coronary artery (HCC) * GLUCOSE - POINT OF CARE(Performed 09/19/2016) * HEMOGLOBIN A1C(Performed 09/19/2016) * CK BLOOD(Performed 09/19/2016) * SLIDE SCAN HEMATOLOGY(Performed 09/19/2016) * TSH REFLEX FREE T4(Performed 09/19/2016) * CBC W AUTO DIFFERENTIAL(Performed 09/19/2016) * PHOSPHORUS BLOOD(Performed 09/19/2016) * MAGNESIUM BLOOD(Performed 09/19/2016) * LIPID PROFILE(Performed 09/19/2016) * BASIC METABOLIC PANEL (CALCIUM TOTAL)(Performed 09/19/2016) * ED CRITICAL CARE(Performed 09/19/2016) Performed for NSTEMI (non-ST elevated myocardial infarction) ([facility]) * TROPONIN I(Performed 09/18/2016) * CULTURE MRSA(Performed 09/18/2016) * CULTURE MRSA(Performed 09/18/2016) * CULTURE VRE(Performed 09/18/2016) * EKG 12-LEAD(Performed 09/18/2016) Performed for ST elevation (STEMI) myocardial infarction involving right coronary artery ([facility]) * CARDIAC CATH CONSULT(Performed 09/18/2016) * XR CHEST 1VW PORTABLE(Performed 09/18/2016) Performed for Chest pain, unspecified type * COMPREHENSIVE METABOLIC PANEL(Performed 09/18/2016) * CBC W AUTO DIFFERENTIAL(Performed 09/18/2016) * TROPONIN I(Performed 09/18/2016) * EKG 12-LEAD(Performed 09/18/2016) Performed for Chest pain, unspecified type * DERMATOPATHOLOGY(Performed 02/25/2016) Results * LAB RESULTS ORDER (09/24/2016 7:56 PM CDT) Narrative 09/24/2016 7:56 PM CDT Ordered by an unspecified provider. Scanned Document LAB - THERAPEUTIC DR UG MONITORING ORDERABLES * CARDIAC EKG ORDER (09/23/2016 5:42 AM CDT) Only the most recent of3 resultswithin the time period is included. Narrative 09/23/2016 5:42 AM CDT Ordered by an unspecified provider. Scanned Document CARDIAC SERVICES ORD ERABLES * CARDIAC RHYTHM STRIP ORDER (09/23/2016 5:42 AM CDT) Narrative 09/23/2016 5:42 AM CDT Ordered by an unspecified provider. Scanned Document CARDIAC SERVICES ORD ERABLES * (ABNORMAL) GLUCOSE - POINT OF CARE (09/20/2016 7:57 AM CDT) Only the most recent of2 resultswithin the time period is included. Pathologist [facility] Glucose WB/POC 266(H) 70 - 106 mg/dL 09/20/2016 8:12 AM CDT [facility] Blood BLOOD SPECIMEN / Unknown 09/20/2016 7:57 AM CDT 09/20/2016 8:12 AM CDT Vance Cortez MD LAB - POINT OF CARE ORDERABLES [facility] [address] [place] [address] * (ABNORMAL) CBC W AUTO DIFFERENTIAL (09/20/2016 3:41 AM CDT) Only the most recent of3 resultswithin the time period is included. Pathologist [facility] WBC 9.2 4.4 - 10.7 x10E9/L 09/20/2016 4:44 AM CDT [facility] WBC Corrected x10E9/L 09/20/2016 4:44 AM CDT [facility] RBC 4.26 3.80 - 5.40 x10E12/L 09/20/2016 4:44 AM CDT [facility] Hemoglobin 14.8 12.0 - 17.6 gm/dL 09/20/2016 4:44 AM CDT [facility] Hematocrit 40.9 35.2 - 51.7 % 09/20/2016 4:44 AM CDT [facility] MCV 96.0 80.7 - 98.3 fl 09/20/2016 4:44 AM CDT [facility] MCH 34.7(H) 26.7 - 34.0 pg 09/20/2016 4:44 AM CDT [facility] MCHC 36.2(H) 30.8 - 35.9 gm/dL 09/20/2016 4:44 AM CDT [facility] Platelet Count 182 153 - 416 x10E9/L 09/20/2016 4:44 AM CDT [facility] RDW-CV 11.7(L) 12.1 - 14.9 % 09/20/2016 4:44 AM CDT [facility] MPV 10.3 9.4 - 12.9 fl 09/20/2016 4:44 AM CDT [facility] Neutrophils % 60.4 44.0 - 73.0 % 09/20/2016 4:44 AM CDT [facility] Lymphocytes % 23.8 20.0 - 43.0 % 09/20/2016 4:44 AM CDT [facility] Monocytes % 11.6 5.0 - 13.0 % 09/20/2016 4:44 AM CDT [facility] Eosinophils % 2.7 0.0 - 6.0 % 09/20/2016 4:44 AM CDT [facility] Basophils % 0.8 0.0 - 2.0 % 09/20/2016 4:44 AM CDT [facility] Immature Granulocytes 0.7 0 - 1 % 09/20/2016 4:44 AM CDT [facility] Neutrophil Absolute 5.55 2.01 - 7.14 x10E9/L 09/20/2016 4:44 AM CDT [facility] Lymphocytes Absolute 2.18 1.07 - 3.94 x10E9/L 09/20/2016 4:44 AM CDT [facility] Monocytes Absolute 1.06 0.26 - 1.07 x10E9/L 09/20/2016 4:44 AM CDT [facility] Eosinophils Absolute 0.25 0 - 0.47 x10E9/L 09/20/2016 4:44 AM CDT [facility] Basophils Absolute 0.07 0 - 0.08 x10E9/L 09/20/2016 4:44 AM CDT [facility] Immature Granulocytes Absolute 0.06 0.00 - 0.06 x10E9/L 09/20/2016 4:44 AM CDT [facility] nRBC Auto 0 /100 WBC 09/20/2016 4:44 AM CDT [facility] Blood BLOOD SPECIMEN / Unknown Lab Venipuncture / Unknown 09/20/2016 3:41 AM CDT 09/20/2016 4:17 AM CDT Freya Parsons MD LAB - HEMATOLOGY ORD ERABLES [facility] [address] [place], [place] [id number] * (ABNORMAL) RENAL FUNCTION PANEL (09/20/2016 3:41 AM CDT) Glucose 231(H) 74 - 106 mg/dL 09/20/2016 5:05 AM CDT [facility] Sodium 136 136 - 145 mmol/L 09/20/2016 5:05 AM CDT [facility] Potassium 3.9 3.5 - 5.1 mmol/L 09/20/2016 5:05 AM CDT [facility] Chloride 105 98 - 107 mmol/L 09/20/2016 5:05 AM CDT [facility] CO2 25 22 - 31 mmol/L 09/20/2016 5:05 AM CDT [facility] Calcium 8.3(L) 8.5 - 10.1 mg/dL 09/20/2016 5:05 AM T [facility] Anion Gap 6 5 - 20 mmol/L 09/20/2016 5:05 AM CDT [facility] BUN 17 7 - 21 mg/dL 09/20/2016 5:05 AM CDT [facility] Creatinine 1.10 0.50 - 1.30 mg/dL 09/20/2016 5:05 AM CDT [facility] Albumin 3.4 3.4 - 5.0 gm/dL 09/20/2016 5:05 AM CDT [facility] Phosphorus 3.1 2.5 - 4.9 mg/dL 09/20/2016 5:05 AM CDT [facility] eGFR by MDRD >60 >60 mL/min/1.7 3m2 09/20/2016 5:05 AM CDT [facility] eGFR by MDRD >60 >60 mL/min/1.7 3m2 09/20/2016 5:05 AM CDT [facility] Blood BLOOD SPECIMEN / Unknown Lab Venipuncture / Unknown 09/20/2016 3:41 AM CDT 09/20/2016 4:17 AM CDT Freya Parsons MD LAB - CHEMISTRY KENDRA VO [facility] Organization Address City/State/ZIP Co de Phone Number [facility] [address] [place] [address] * MAGNESIUM BLOOD (09/20/2016 3:41 AM CDT) Only the most recent of2 resultswithin the time period is included. Pathologist [facility] Magnesium 1.8 1.6 - 2.6 mg/dL 09/20/2016 5:02 AM CDT [facility] Blood BLOOD SPECIMEN / Unknown Lab Venipuncture / Unknown 09/20/2016 3:41 AM CDT 09/20/2016 4:17 AM CDT Freya Parsons MD LAB - CHEMISTRY ORDE TAVO [facility] [address] [place] [id number] * CARDIAC PROCEDURE ORDER (09/19/2016 7:55 PM CDT) Narrative 09/19/2016 7:55 PM CDT Ordered by an unspecified provider. Scanned Document CARDIAC SERVICES ORD ERABLES * ECHOCARDIOGRAM 2D WITH DOPPLER (09/19/2016 9:36 AM CDT) 09/19/2016 9:36 AM CDT Narrative [facility] - 09/19/2016 5:27 PM CDT [facility] [address] [place] [id number] Transthoracic Echocardiogram 2D, M-mode, Doppler, and Color Doppler Patient: BARRETT IYER MR number: [id number] Height: 70 in Weight: 204.6 lb BSA: 2.11 m Study date: 19-Sep-2016 : 1965 Age: 51 years Gender: Male Race: Reading Physician: Guera Roach MD Referring Physician: Jeanie Pace MD [employer] Operator: Ivanna Blandon DESEAN Summary: - Clinical question: - ST Elevation involving RCA. - History: - Hypertension, diabetes. - Left ventricle: - Systolic function was normal. Ejection fraction was estimated in the range of 55 % to 60 %. - Although no diagnostic regional wall motion abnormality was identified, this possibility cannot be completely excluded on the basis of this study. NOTE In the apical three chamber view there is minimal local decrease of fnction at the inferior lateral apex not seen in multilple views - Wall thickness was normal. - Right ventricle: - The ventricle was mildly dilated. Indications: ST Elevation involving RCA. History: Prior history: Hypertension, diabetes. Procedure: The procedure was performed at the bedside. This was a routine study. The transthoracic approach was used. The study included complete 2D imaging, M-mode, complete spectral Doppler, and color Doppler. The heart rate was 61 bpm. Systolic blood pressure was 170 mmHg. Diastolic blood pressure was 87 mmHg. Images were obtained from the parasternal, apical, and subcostal acoustic windows. Image quality was good. Left ventricle: Size was normal. Systolic function was normal. Ejection fraction was estimated in the range of 55 % to 60 %. Although no diagnostic regional wall motion abnormality was identified, this possibility cannot be completely excluded on the basis of this study. NOTE In the apical three chamber view there is minimal local decrease of fnction at the inferior lateral apex not seen in multilple views Wall thickness was normal. Doppler: Left ventricular diastolic function parameters were normal. Aortic valve: The valve was trileaflet. Doppler: There was no stenosis. There was no regurgitation. Aorta: The root exhibited normal size. Mitral valve: Doppler: There was trivial regurgitation. Left atrium: Size was normal. Right ventricle: The ventricle was mildly dilated. Systolic function was low normal. Pulmonic valve: Leaflets exhibited normal thickness, no calcification, and normal cuspal separation. Doppler: There was no regurgitation. Tricuspid valve: Doppler: There was trivial regurgitation with peak velocity 2.04 m/sec suggesting pulm artery pressure up to 16 mm Hg added to RA pressure. The IV cava is normal at 1.5 cm diameter with apparently normal motion so Ra pressure is 0-5 mm Hg Right atrium: Size was at the upper limits of normal. Pericardium: There was no pericardial effusion. The pericardium was normal in appearance. System measurement tables 2D Ao Diam: 2.7 cm LVOT Diam: 2.1 cm LA Diam: 3.3 cm LAAs A2C: 15.8 cm2 LAAs A4C: 15.8 cm2 LAESV A-L A2C: 42.2 ml LAESV A-L A4C: 45.4 ml LAESV Index (A-L): 21.5 ml/m2 LAESV MOD A2C: 39.8 ml LAESV MOD A4C: 43.2 ml LAESV(A-L): 45.3 ml LALs A2C: 5 cm IVSd: 0.9 cm LVIDd: 4.7 cm LVIDs: 3.4 cm LVPWd: 0.8 cm CW AV VTI: 27.5 cm AV Vmax: 1.2 m/s AV Vmean: 1 m/s AV maxP.9 mmHg AV meanP.2 mmHg TR Vmax: 2 m/s MM TAPSE: 0 PW MAEGAN (VTI): 2.5 cm2 MAEGAN Vmax: 3 cm2 LVOT VTI: 19 cm LVOT Vmax: 1 m/s LVOT Vmean: 0.7 m/s LVOT maxP mmHg LVOT meanP.3 mmHg MV E/A Ratio: 1.1 LATERAL E': 0.1 m/s LATERAL E/E': 6.4 SEPTAL E/E': 8.9 Prepared and signed by Kurt Ma MD, [facility] Signed 19-Sep-2016 17:27:02 Procedure Note Guera Roach MD - 09/19/2016 [place] [address] Transthoracic Echocardiogram 2D, M-mode, Doppler, and Color Doppler Patient: BARRETT IYER MR number: [id number] Height: 70 in Weight: 204.6 lb BSA: 2.11 m Study date: 19-Sep-2016 : 1965 Age: 51 years Gender: Male Race: Reading Physician: Guera Roach MD Referring Physician: Jeanie Pace MD [employer] Operator: Ivanna Blandon [facility] Summary: - Clinical question: - ST Elevation involving RCA. - History: - Hypertension, diabetes. - Left ventricle: - Systolic function was normal. Ejection fraction was estimated in the range of 55 % to 60 %. - Although no diagnostic regional wall motion abnormality was identified, this possibility cannot be completely excluded on the basis of this study. NOTE In the apical three chamber view there is minimal local decrease of fnction at the inferior lateral apex not seen in multilple views - Wall thickness was normal. - Right ventricle: - The ventricle was mildly dilated. Indications: ST Elevation involving RCA. History: Prior history: Hypertension, diabetes. Procedure: The procedure was performed at the bedside. This was a routine study. The transthoracic approach was used. The study included complete 2D imaging, M-mode, complete spectral Doppler, and color Doppler. The heart rate was 61 bpm. Systolic blood pressure was 170 mmHg. Diastolic blood pressure was 87 mmHg. Images were obtained from the parasternal, apical, and subcostal acoustic windows. Image quality was good. Left ventricle: Size was normal. Systolic function was normal. Ejection fraction was estimated in the range of 55 % to 60 %. Although no diagnostic regional wall motion abnormality was identified, this possibility cannot be completely excluded on the basis of this study. NOTE In the apical three chamber view there is minimal local decrease of fnction at the inferior lateral apex not seen in multilple views Wall thickness was normal. Doppler: Left ventricular diastolic function parameters were normal. Aortic valve: The valve was trileaflet. Doppler: There was no stenosis. There was no regurgitation. Aorta: The root exhibited normal size. Mitral valve: Doppler: There was trivial regurgitation. Left atrium: Size was normal. Right ventricle: The ventricle was mildly dilated. Systolic function was low normal. Pulmonic valve: Leaflets exhibited normal thickness, no calcification, and normal cuspal separation. Doppler: There was no regurgitation. Tricuspid valve: Doppler: There was trivial regurgitation with peak velocity 2.04 m/sec suggesting pulm artery pressure up to 16 mm Hg added to RA pressure. The IV cava is normal at 1.5 cm diameter with apparently normal motion so Ra pressure is 0-5 mm Hg Right atrium: Size was at the upper limits of normal. Pericardium: There was no pericardial effusion. The pericardium was normal in appearance. System measurement tables 2D Ao Diam: 2.7 cm LVOT Diam: 2.1 cm LA Diam: 3.3 cm LAAs A2C: 15.8 cm2 LAAs A4C: 15.8 cm2 LAESV A-L A2C: 42.2 ml LAESV A-L A4C: 45.4 ml LAESV Index (A-L): 21.5 ml/m2 LAESV MOD A2C: 39.8 ml LAESV MOD A4C: 43.2 ml LAESV(A-L): 45.3 ml LALs A2C: 5 cm IVSd: 0.9 cm LVIDd: 4.7 cm LVIDs: 3.4 cm LVPWd: 0.8 cm CW AV VTI: 27.5 cm AV Vmax: 1.2 m/s AV Vmean: 1 m/s AV maxP.9 mmHg AV meanP.2 mmHg TR Vmax: 2 m/s MM TAPSE: 0 PW MAEGAN (VTI): 2.5 cm2 MAEGAN Vmax: 3 cm2 LVOT VTI: 19 cm LVOT Vmax: 1 m/s LVOT Vmean: 0.7 m/s LVOT maxP mmHg LVOT meanP.3 mmHg MV E/A Ratio: 1.1 LATERAL E': 0.1 m/s LATERAL E/E': 6.4 SEPTAL E/E': 8.9 Prepared and signed by Kurt Ma MD, MACP, FACC Signed 19-Sep-2016 17:27:02 Jeanie Pace MD ECHO ORDERABLES Performing Organization Address [facility] [place] Co de Phone Number [facility] [address] [place] [address] * (ABNORMAL) HEMOGLOBIN A1C (09/19/2016 7:05 AM CDT) Hemoglobin A1c 7.7(H) 4.2 - 6.3 % 09/19/2016 7:19 AM CDT [facility] Estimated Average Glucose 174 mg/dL 09/19/2016 7:19 AM CDT [facility] Whole Blood BLOOD SPECIMEN WITH EDTA / Unknown Venipuncture / Unknown 09/19/2016 7:05 AM CDT 09/19/2016 7:05 AM CDT Moiz Mcdowell MD LAB - CHEMISTRY KENDRA VO [facility] [address] [place] [address] * TSH REFLEX FREE T4 (09/19/2016 6:16 AM CDT) TSH 1.20 0.358 - 3.740 ulU/mL 09/19/2016 7:04 AM CDT [facility] Blood BLOOD SPECIMEN / Unknown Venipuncture / Unknown 09/19/2016 6:16 AM CDT 09/19/2016 6:35 AM CDT Moiz Mcdowell MD LAB - CHEMISTRY KENDRA VO Performing Organization Address [facility]/ZIP Co de Phone Number [facility] [address] [place], [place] [phone] * (ABNORMAL) SLIDE SCAN HEMATOLOGY (09/19/2016 6:16 AM CDT) Clumped Platelets Occasional (A) None 09/19/2016 8:24 AM CDT [facility] Blood BLOOD SPECIMEN / Unknown Venipuncture / Unknown 09/19/2016 6:16 AM CDT 09/19/2016 6:35 AM CDT Moiz Mcdowell MD LAB - HEMATOLOGY ORD TAWANDA Performing Organization Address [facility] [place] Co de Phone Number [facility] [address] [place], [place] [phone] * (ABNORMAL) CK BLOOD (09/19/2016 6:16 AM CDT) CK 485(H) 35 - 232 U/L 09/19/2016 10:48 AM CDT [facility] Blood BLOOD SPECIMEN / Unknown Venipuncture / Unknown 09/19/2016 6:16 AM CDT 09/19/2016 6:35 AM CDT Jagjit Miner MD LAB - CHEMISTRY KENDRA VO Performing Organization Address [facility]/ZIP Co de Phone Number [facility] [address] [place], [place] [phone] * (ABNORMAL) BASIC METABOLIC PANEL (CALCIUM TOTAL) (09/19/2016 2:36 AM CDT) Glucose 153(H) 74 - 106 mg/dL 09/19/2016 4:08 AM CDT [facility] Sodium 142 136 - 145 mmol/L 09/19/2016 4:08 AM CDT [facility] Potassium 3.7 3.5 - 5.1 mmol/L 09/19/2016 4:08 AM CDT [facility] Chloride 111(H) 98 - 107 mmol/L 09/19/2016 4:08 AM CDT [facility] CO2 22 22 - 31 mmol/L 09/19/2016 4:08 AM CDT [facility] Calcium 7.0(LL) 8.5 - 10.1 mg/dL 09/19/2016 4:08 AM CDT [facility] Anion Gap 9 5 - 20 mmol/L 09/19/2016 4:08 AM CDT [facility] BUN 10 7 - 21 mg/dL 09/19/2016 4:08 AM CDT [facility] Creatinine 0.78 0.50 - 1.30 mg/dL 09/19/2016 4:08 AM CDT [facility] eGFR by MDRD >60 >60 mL/min/1.7 3m2 09/19/2016 4:08 AM CDT [facility] eGFR by MDRD >60 >60 mL/min/1.7 3m2 09/19/2016 4:08 AM CDT [facility] Blood BLOOD SPECIMEN / Unknown Venipuncture / Unknown 09/19/2016 2:36 AM CDT 09/19/2016 3:31 AM CDT Narrative [facility] - 09/19/2016 4:08 AM CDT Slight hemolysis. Guera Roach MD LAB - CHEMISTRY O RDERAVIOLET [facility] [address] [place] [address] * PHOSPHORUS BLOOD (09/19/2016 2:36 AM CDT) Phosphorus 3.6 2.5 - 4.9 mg/dL 09/19/2016 4:08 AM CDT [facility] Blood BLOOD SPECIMEN / Unknown Venipuncture / Unknown 09/19/2016 2:36 AM CDT 09/19/2016 3:31 AM CDT Moiz Mcdowell MD LAB - CHEMISTRY KENDRA VO [facility] [address] [place] [phone] * (ABNORMAL) LIPID PROFILE (09/19/2016 2:36 AM CDT) Cholesterol 132 <200 mg/dL 09/19/2016 4:08 AM CDT [facility] Triglycerides 321(H) <150 mg/dL 09/19/2016 4:08 AM CDT [facility] HDL Cholesterol 22(L) >40 mg/dL 6 4:08 AM CDT [facility] LDL Calculated 46 <130 mg/dL 09/19/2016 4:08 AM CDT [facility] VLDL Calculated 64(H) <=30 mg/dL 6 4:08 AM CDT [facility] Chol HDL Ratio 6.0(H) <4.5 09/19/2016 4:08 AM CDT [facility] LDL/HDL Ratio 2.1 <5.0 09/19/2016 4:08 AM T [facility] Blood BLOOD SPECIMEN / Unknown Venipuncture / Unknown 09/19/2016 2:36 AM CDT 09/19/2016 3:31 AM CDT Guera Roach MD LAB - CHEMISTRY O RDERABLES [facility] [address] [place] [address] * ED CRITICAL CARE (09/19/2016 12:23 AM CDT) Narrative Ashley Bingham, - 09/19/2016 12:23 AM CDT Ashley Bingham DO 09/19/2016 12:23 AM Critical Care Performed by: ASHLEY BINGHAM Authorized by: ENOCH BOTELLO Total critical care time: 35 minutes Critical care time was exclusive of separately billable procedures and treating other patients and teaching time. Critical care was necessary to treat or prevent imminent or life-threatening deterioration of the following conditions: cardiac failure. Critical care was time spent personally by me on the following activities: development of treatment plan with patient or surrogate, discussions with consultants, evaluation of patient's response to treatment, examination of patient, obtaining history from patient or surrogate, ordering and performing treatments and interventions, ordering and review of laboratory studies, review of old charts, pulse oximetry and re-evaluation of patient's condition. Enoch Botello MD PROCEDURE/MINOR SURG ICAL ORDERABLES * (ABNORMAL) TROPONIN I (09/18/2016 11:11 PM CDT) Only the most recent of2 resultswithin the time period is included. Troponin I 24.700(HH) 0.000 - 0.049 ng/mL 09/18/2016 11:52 PM CDT [facility] Blood BLOOD SPECIMEN / Unknown Venipuncture / Unknown 09/18/2016 11:11 PM CDT 09/18/2016 11:37 PM CDT Narrative [facility] - 09/18/2016 11:52 PM CDT Note: Diagnosis of myocardial infarction requires symptoms of ischemia or EKG changes of ischemia and Troponin I >99th of normal (0.05 ng/mL). Troponin should be drawn on initial assessment and 3-6 hours later as clinically indicated. Any condition resulting in myocardial cell damage can increase cardiac troponin levels. In addition to myocardial infarction, these include but are not limited to congestive heart failure (CHF), arrhythmia, myocarditis, and non-cardiac related causes such as pulmonary embolism, renal failure and sepsis. Ashley Bingham DO LAB - CHEMISTRY KENDRA VO Performing Organization Address City/[facility]/ZIP Co de Phone Number [facility] [address] [place] [address] * CULTURE VRE (09/18/2016 8:41 PM CDT) Pathologist [facility] Culture Negative for VRE CALLUM 09/20/2016 8:57 AM CDT [facility] Stool RECTAL SWAB / Unknown Collection / Unknown 09/18/2016 8:41 PM CDT 09/18/2016 9:30 PM CDT Cheikh Rosette Luo MD LAB - SD CROBIOLOGY ORDERABLES [facility] [address] [facility] [address] [phone] * CULTURE MRSA (09/18/2016 8:41 PM CDT) Only the most recent of2 resultswithin the time period is included. Culture Negative for MRSA CALLUM 09/20/2016 8:59 AM CDT [facility] MICROBIOLOGY Microbiology SPECIMEN FROM NASAL FOSSAE / Unknown Collection / Unknown 09/18/2016 8:41 PM CDT 09/18/2016 9:30 PM CDT Cheikh Rosette Luo MD LAB - SD CROBIOLOGY ORDERABLES [facility]CROBIOLOG[facility] [address] [facility] [place] [phone] * EKG 12-LEAD (SPECIFY TIME) (09/18/2016 8:27 PM CDT) Only the most recent of2 resultswithin the time period is included. Ventricular Rate 73 BPM [facility] Atrial Rate 73 BPM [facility] P-R Interval 164 ms [facility] QRS Duration ms 96 ms [facility] Q-T Interval ms 410 ms [facility] QTC Calculation (Bezet) 451 ms [facility] Calculated P [place] 49 degrees [facility] Calculated R [place] 49 degrees [facility] Calculated T [place] 39 degrees [facility] Interpretation EKG NORMAL SINUS RHYTHM POSSIBLE LEFT ATRIAL ENLARGEMENT NONSPECIFIC ST ABNORMALITY ABNORMAL ECG Confirmed by Chayito Pacheco ([id number]) on 09/19/2016 8:17:41 AM [facility] MUSE 09/18/2016 8:27 PM CDT 09/19/2016 8:17 AM CDT Guera Roach MD ECG ORDERABLES Performing Organization Address City/[facility]/ZIP Co de Phone Number HC MUSE * CARDIAC CATH CONSULT - For Epic Reporting (09/18/2016 6:49 PM CDT) 09/18/2016 6:49 PM CDT Narrative [facility] CARDIOLOGY - 09/25/2016 10:29 AM CDT [address] [address] Cardiovascular Catheterization Comprehensive Report Patient: BARRETT IYER MR number: [id number] Height: 70.1 in Weight: 199.5 lb BSA: 2.09 m Study date: 09/18/2016 : 1965 Age: 51 years Gender: Male Race: Diagnostic 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 There was MINA grade 0 flow through the vessel (no flow). -- Distal RCA: There was a 80 % stenosis. There was MINA grade 2 flow through the vessel (partial perfusion). -- CARDIAC STRUCTURES: -- Analysis of regional contractile function demonstrated mild posterobasal hypokinesis. -- EF was estimated at 55 %. -- 1ST LESION INTERVENTIONS: -- A drug-eluting stent was performed on the 100 % lesion in the proximal RCA. Following intervention there was a 0 % residual stenosis. -- 2ND LESION INTERVENTIONS: -- A drug-eluting stent was performed on the 80 % lesion in the distal RCA. Following intervention there was a 0 % residual stenosis. PROCEDURES PERFORMED: -- Left heart catheterization with ventriculography. -- Left coronary angiography. -- Right coronary angiography. -- Hemostasis w/Angioseal. -- Intervention on proximal RCA: drug-eluting stent. -- Intervention on distal RCA: drug-eluting stent. COMPLICATIONS: No complications occurred during the solar lab technician visit. VENTRICLES: -- Analysis of regional contractile function demonstrated mild posterobasal hypokinesis. -- EF was estimated at 55 %. CORONARY CIRCULATION: -- Left main: Normal. -- LAD: Angiography showed minor luminal irregularities. -- 1st obtuse marginal: There was a tubular 40 % stenosis. -- Proximal RCA: There was a 100 % stenosis. There was MINA grade 0 flow through the vessel (no flow). -- Distal RCA: There was a 80 % stenosis. There was MINA grade 2 flow through the vessel (partial perfusion). PROCEDURE: The risks and alternatives of the procedures and conscious sedation were explained to the patient and informed consent was obtained. The patient was brought to the solar lab technician and placed on the table. The planned puncture sites were prepped and draped in the usual sterile fashion. -- Right femoral artery access. The puncture site was infiltrated with 1 % lidocaine. The vessel was accessed using the modified Seldinger technique, a wire was threaded into the vessel, and a sheath was advanced over the wire into the vessel. -- Left heart catheterization. A catheter was advanced to the ascending aorta. After recording ascending aortic pressure, the catheter was advanced across the aortic valve and left ventricular pressure was recorded. Ventriculography was performed using power injection of contrast agent. Imaging was performed using an JEFFERSON projection. -- Left coronary artery angiography. A catheter was advanced to the aorta and positioned in the vessel ostium under fluoroscopic guidance. Angiography was performed in multiple projections using hand-injection of contrast. -- Right coronary artery angiography. A catheter was advanced to the aorta and positioned in the vessel ostium under fluoroscopic guidance. Angiography was performed in multiple projections using hand-injection of contrast. -- Hemostasis w/Angioseal. LESION #1 INTERVENTION: A drug-eluting stent was performed on the 100 % lesion in the proximal RCA. Following intervention there was a 0 % residual stenosis. This was an ACC/AHA type C high risk lesion for intervention. There was MINA 0 flow before the procedure and MINA 3 flow after the procedure. There was no acute vessel closure. There was no perforation. There was no dissection. -- Vessel setup was performed. A 6Fr FR4 RunWay guiding catheter was used to intubate the vessel. -- Vessel setup was performed. A .014/190cm BMW [place] II wire was used to cross the lesion. -- Balloon angioplasty was performed, using a 2mm x 20mm Mini Trek RX balloon, with 2 inflations and a maximum inflation pressure of 17 glenn. -- A 2.75mm x 18mm Resolute Integrity zotarolimus-eluting stent was placed across the lesion and deployed at a maximum inflation pressure of 18 glenn. LESION #2 INTERVENTION: A drug-eluting stent was performed on the 80 % lesion in the distal RCA. Following intervention there was a 0 % residual stenosis. This was an ACC/AHA type C high risk lesion for intervention. There was MINA 2 flow before the procedure and MINA 3 flow after the procedure. There was no acute vessel closure. There was no perforation. There was no dissection. -- A 2.75mm x 18mm Resolute Integrity zotarolimus-eluting stent was placed across the lesion and deployed at a maximum inflation pressure of 18 glenn. PROCEDURE COMPLETION: TIMING: Test started at 19:12. Test concluded at 19:51. RADIATION EXPOSURE: Fluoroscopy time: 8.52 min. MEDICATIONS GIVEN: Midazolam, 1 mg, IV, at 19:13. Fentanyl, 25 mcg, IV, at 19:13. Lidocaine, 18 ml, subcutaneously, at 19:12. Nitroglycerin, 200 mcg, intracoronary, at 19:35. Heparin, 5,000 units, IV, last dose at 19:25. Tirofiban (Aggrastat), 45.5 ml, IV, last dose at 19:33. Tirofiban (Aggrastat), infusion rate of 16.4 ml/hr, IV, last dose at 19:37. Heparin, 2,000 units, IV, last dose at 19:52. Clopidogrel (Plavix), 300 mg, PO, last dose at 19:54. 0.9 Saline, infusion rate of 75 ml/hr, IV, at 19:13. Prepared and signed by Guera Roach MD Signed 09/25/2016 10:29:21 STUDY DIAGRAM Angiographic findings Creek coronary lesions: OM1: Lesion 1: tubular, 40 % stenosis. Proximal RCA: Lesion 1: 100 % stenosis. Distal RCA: Lesion 1: 80 % stenosis. Intervention results Creek coronary lesions: drug-eluting stent of the 100 % stenosis in proximal RCA. 0 % residual stenosis. Stent: 2.75mm x 18mm Resolute Integrity. drug-eluting stent of the 80 % stenosis in distal RCA. 0 % residual stenosis. Stent: 2.75mm x 18mm Resolute Integrity. HEMODYNAMIC TABLES Pressures: Baseline Pressures: - HR: 76 Pressures: - Rhythm: Pressures: -- Aortic Pressure (S/D/M): 147/80/105 Pressures: -- Left Ventricle (s/edp): 168/32/-- Outputs: Baseline Outputs: -- CALCULATIONS: [age] Outputs: -- CALCULATIONS: Body Surface Area: 2.09 Outputs: -- CALCULATIONS: Height in cm: 178.00 Outputs: -- CALCULATIONS: Sex: Male Outputs: -- CALCULATIONS: Weight in k.70 Procedure Note Unknown, Provider - 09/25/[address] [address] Cardiovascular Catheterization Comprehensive Report Patient: BARRETT IYER MR number: [id number] Height: 70.1 in Weight: 199.5 lb BSA: 2.09 m Study date: 09/18/2016 : 1965 Age: 51 years Gender: Male Race: Diagnostic 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 There was MINA grade 0 flow through the vessel (no flow). -- Distal RCA: There was a 80 % stenosis. There was MINA grade 2 flow through the vessel (partial perfusion). -- CARDIAC STRUCTURES: -- Analysis of regional contractile function demonstrated mild posterobasal hypokinesis. -- EF was estimated at 55 %. -- 1ST LESION INTERVENTIONS: -- A drug-eluting stent was performed on the 100 % lesion in the proximal RCA. Following intervention there was a 0 % residual stenosis. -- 2ND LESION INTERVENTIONS: -- A drug-eluting stent was performed on the 80 % lesion in the distal RCA. Following intervention there was a 0 % residual stenosis. PROCEDURES PERFORMED: -- Left heart catheterization with ventriculography. -- Left coronary angiography. -- Right coronary angiography. -- Hemostasis w/Angioseal. -- Intervention on proximal RCA: drug-eluting stent. -- Intervention on distal RCA: drug-eluting stent. COMPLICATIONS: No complications occurred during the solar lab technician visit. VENTRICLES: -- Analysis of regional contractile function demonstrated mild posterobasal hypokinesis. -- EF was estimated at 55 %. CORONARY CIRCULATION: -- Left main: Normal. -- LAD: Angiography showed minor luminal irregularities. -- 1st obtuse marginal: There was a tubular 40 % stenosis. -- Proximal RCA: There was a 100 % stenosis. There was MINA grade 0 flow through the vessel (no flow). -- Distal RCA: There was a 80 % stenosis. There was MINA grade 2 flow through the vessel (partial perfusion). PROCEDURE: The risks and alternatives of the procedures and conscious sedation were explained to the patient and informed consent was obtained. The patient was brought to the solar lab technician and placed on the table. The planned puncture sites were prepped and draped in the usual sterile fashion. -- Right femoral artery access. The puncture site was infiltrated with 1 % lidocaine. The vessel was accessed using the modified Seldinger technique, a wire was threaded into the vessel, and a sheath was advanced over the wire into the vessel. -- Left heart catheterization. A catheter was advanced to the ascending aorta. After recording ascending aortic pressure, the catheter was advanced across the aortic valve and left ventricular pressure was recorded. Ventriculography was performed using power injection of contrast agent. Imaging was performed using an JEFFERSON projection. -- Left coronary artery angiography. A catheter was advanced to the aorta and positioned in the vessel ostium under fluoroscopic guidance. Angiography was performed in multiple projections using hand-injection of contrast. -- Right coronary artery angiography. A catheter was advanced to the aorta and positioned in the vessel ostium under fluoroscopic guidance. Angiography was performed in multiple projections using hand-injection of contrast. -- Hemostasis w/Angioseal. LESION #1 INTERVENTION: A drug-eluting stent was performed on the 100 % lesion in the proximal RCA. Following intervention there was a 0 % residual stenosis. This was an ACC/AHA type C high risk lesion for intervention. There was MINA 0 flow before the procedure and MINA 3 flow after the procedure. There was no acute vessel closure. There was no perforation. There was no dissection. -- Vessel setup was performed. A 6Fr FR4 RunWay guiding catheter was used to intubate the vessel. -- Vessel setup was performed. A .014/190cm BMW [place] II wire was used to cross the lesion. -- Balloon angioplasty was performed, using a 2mm x 20mm Mini Trek RX balloon, with 2 inflations and a maximum inflation pressure of 17 glenn. -- A 2.75mm x 18mm Resolute Integrity zotarolimus-eluting stent was placed across the lesion and deployed at a maximum inflation pressure of 18 glenn. LESION #2 INTERVENTION: A drug-eluting stent was performed on the 80 % lesion in the distal RCA. Following intervention there was a 0 % residual stenosis. This was an ACC/AHA type C high risk lesion for intervention. There was MINA 2 flow before the procedure and MINA 3 flow after the procedure. There was no acute vessel closure. There was no perforation. There was no dissection. -- A 2.75mm x 18mm Resolute Integrity zotarolimus-eluting stent was placed across the lesion and deployed at a maximum inflation pressure of 18 glenn. PROCEDURE COMPLETION: TIMING: Test started at 19:12. Test concluded at 19:51. RADIATION EXPOSURE: Fluoroscopy time: 8.52 min. MEDICATIONS GIVEN: Midazolam, 1 mg, IV, at 19:13. Fentanyl, 25 mcg, IV, at 19:13. Lidocaine, 18 ml, subcutaneously, at 19:12. Nitroglycerin, 200 mcg, intracoronary, at 19:35. Heparin, 5,000 units, IV, last dose at 19:25. Tirofiban (Aggrastat), 45.5 ml, IV, last dose at 19:33. Tirofiban (Aggrastat), infusion rate of 16.4 ml/hr, IV, last dose at 19:37. Heparin, 2,000 units, IV, last dose at 19:52. Clopidogrel (Plavix), 300 mg, PO, last dose at 19:54. 0.9 Saline, infusion rate of 75 ml/hr, IV, at 19:13. Prepared and signed by Guera Roach MD Signed 09/25/2016 10:29:21 STUDY DIAGRAM Angiographic findings Creek coronary lesions: OM1: Lesion 1: tubular, 40 % stenosis. Proximal RCA: Lesion 1: 100 % stenosis. Distal RCA: Lesion 1: 80 % stenosis. Intervention results Creek coronary lesions: drug-eluting stent of the 100 % stenosis in proximal RCA. 0 % residual stenosis. Stent: 2.75mm x 18mm Resolute Integrity. drug-eluting stent of the 80 % stenosis in distal RCA. 0 % residual stenosis. Stent: 2.75mm x 18mm Resolute Integrity. HEMODYNAMIC TABLES Pressures: Baseline Pressures: - HR: 76 Pressures: - Rhythm: Pressures: -- Aortic Pressure (S/D/M): 147/80/105 Pressures: -- Left Ventricle (s/edp): 168/32/-- Outputs: Baseline Outputs: -- CALCULATIONS: [age] Outputs: -- CALCULATIONS: Body Surface Area: 2.09 Outputs: -- CALCULATIONS: Height in cm: 178.00 Outputs: -- CALCULATIONS: Sex: Male Outputs: -- CALCULATIONS: Weight in k.70 Guera Roach MD ECHO ORDERABLES [facility] [address] [place] [address] * XR CHEST 1VW PORTABLE (09/18/2016 6:43 PM CDT) Anatomical Region Laterality Modality Chest Radiographic Aysha ging 09/18/2016 6:45 PM CDT Narrative 09/18/2016 6:46 PM CDT Exam: PA and lateral views of the chest. History: Chest pain Findings/Impression: No prior exams are available for comparison. Minimal patchy opacities are identified lung base may represent atelectasis or airspace disease. No focal consolidation is identified in the right lung. There is no evidence of pleural effusion or pneumothorax. The cardiac silhouette appears normal. There is mild prominence of the right paratracheal stripe which may be related to patient rotation. Calcified plaques are seen in the aortic arch. Procedure Note Yosef Guzman MD - 09/18/2016 Exam: PA and lateral views of the chest. History: Chest pain Findings/Impression: No prior exams are available for comparison. Minimal patchy opacities are identified lung base may represent atelectasis or airspace disease. No focal consolidation is identified in the right lung. There is no evidence of pleural effusion or pneumothorax. The cardiac silhouette appears normal. There is mild prominence of the right paratracheal stripe which may be related to patient rotation. Calcified plaques are seen in the aortic arch. Ashley Bingham DO DIAGNOSTIC IMAGING O RDERABLES * (ABNORMAL) COMPREHENSIVE METABOLIC PANEL (09/18/2016 6:13 PM CDT) Glucose 284(H) 74 - 106 mg/dL 09/18/2016 6:35 PM CDT [facility] Sodium 136 136 - 145 mmol/L 09/18/2016 6:35 PM CDT [facility] Potassium 4.2 3.5 - 5.1 mmol/L 09/18/2016 6:35 PM CDT [facility] Chloride 104 98 - 107 mmol/L 09/18/2016 6:35 PM CDT [facility] CO2 24 22 - 31 mmol/L 09/18/2016 6:35 PM CDT [facility] Calcium 8.6 8.5 - 10.1 mg/dL 09/18/2016 6:35 PM CDT [facility] Anion Gap 8 5 - 20 mmol/L 09/18/2016 6:35 PM CDT [facility] BUN 13 7 - 21 mg/dL 09/18/2016 6:35 PM CDT [facility] Creatinine 1.10 0.50 - 1.30 mg/dL 09/18/2016 6:35 PM CDT [facility] Alkaline Phosphatase 61 38 - 126 U/L 09/18/2016 6:35 PM CDT [facility] ALT 41 13 - 61 U/L 09/18/2016 6:35 PM CDT [facility] AST 23 5 - 40 U/L 09/18/2016 6:35 PM CDT [facility] Protein Total 7.3 6.4 - 8.2 gm/dL 09/18/2016 6:35 PM CDT [facility] Albumin 4.0 3.4 - 5.0 gm/dL 09/18/2016 6:35 PM CDT [facility] Bilirubin Total 0.7 0.2 - 1.0 mg/dL 09/18/2016 6:35 PM CDT [facility] eGFR by MDRD >60 >60 mL/min/1.7 3m2 09/18/2016 6:35 PM CDT [facility] eGFR by MDRD >60 >60 mL/min/1.7 3m2 09/18/2016 6:35 PM CDT [facility] Blood BLOOD SPECIMEN / Unknown Venipuncture / Unknown 09/18/2016 6:13 PM CDT 09/18/2016 6:16 PM CDT Ashley Bingham DO LAB - CHEMISTRY KENDRA VO Performing Organization Address City/State/[facility] Co de Phone Number [facility] [address] [place] [address] * PATHOLOGY TISSUE FOR DERMATOLOGY (02/25/2016 12:00 AM CDT) Result CASE: [id number] PATIENT: BARRETT IYER PATHOLOGIC DIAGNOSIS: Left lower back: LENTIGINOUS MELANOCYTIC NEVUS, JUNCTIONAL TYPE, 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 GROSS DESCRIPTION: Received is one formalin filled container labeled with the patients name and designated left lower back. The specimen consists of a shave biopsy measuring 3b4z2oz. Jar 0. MICROSCOPIC DESCRIPTION: This is a junctional nevus. There is pigmented parakeratosis present. There is architectural disorder characterized by a lentiginous proliferation of melanocytes between irregular nests of cells along the dermal-epidermal junction, highlighted by MART-1/Melan-A immunohistochemical staining. There is underlying fibroplasia of the papillary dermis. There is associated lymphocytic inflammation. (Junctional Bolivar's Nevus or Junctional Dysplastic Nevus) Electronically signed out by Kristy Valentin M.D. 02/27/2016 5:13:48PM [facility] Comment: Performed at: Dermatopathology Laboratory [facility] Department of Dermatology [address] [place] [address] 5th [place] [address] Phone number: [phone] FAX: [phone] Skin (tissue) specimen (specimen) 02/25/2016 02/26/2016 Narrative [facility] - 02/27/2016 5:14 PM CDT Preferred Lab:->Derm-Path Specimen A: Type->Shave Site->L lower back History->n Impression->atypical nevus, r/o MM Check Margins:->N/A Prior Biopsy->N/A Abdias Alvarez MD LAB - PATHOLOGY/CYTO LOGY ORDERABLES [facility] [address] [place] [address] [facility] Floor Lab B [address] [phone] Care Teams Commodity Management Specialist Relationship Specialty Start Date End Date Kavon Owen MD [address] [facility] [address] [place] [address] PCP - General Internal Medicine 09/18/16
[2025-01-18 15:45] LABS: Influenza A QL RT-PCR Positive (Negative); Influenza B QL RT-PCR Negative (Negative); RSV RNA, RT-PCR Negative (Negative); SARS-CoV-2 RNA PCR Negative (Negative)
== END 2025-01-18 13:51 | disposition home or self-care (01) ==
LOC: ANHLAB 13:51
PROVIDERS: PCP Family Medicine; Visit Provider Nurse Practitioner Family
DX: R68.89 Other general symptoms and signs (principal); J06.9 Acute upper respiratory infection, unspecified
CPT/HCPCS: 87637

== ENCOUNTER 2025-09-19 10:59 | Outpatient (CLI) | payer OTHER, SELFPAY ==
--- OUTSIDE RECORDS SUMMARY | 2006-03-03 05:15 | XMS_ITS | Continuity of Care Document ---
Author Organization [facility] Address [address] [place] [address] [place] [address] Phone Care Team Providers Care Ekg Technician Name Role Phone Maciej Esteves MD Unavailable Unavailable Advance Directives Directive Yes / No Effective Date File Name No Information Encounters Encounter Description Practice Location Reason(s) For Visit Diagnoses Date Provider Providers Copied on Encounter [facility], [address] [place] [address] [address], [place], [place], [address], [place] tel:[phone] SEC [facility] No Information [address] [facility] A, [place], [place], [address], [place]. tel:[phone] Family History Family Member Type Diagnosis Age [...]
--- OUTSIDE RECORDS SUMMARY | 2025-09-19 12:57 | XMS_ITS | Clinical Summary ---
[facility] Organization [facility] Address [address] 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
--- OUTSIDE RECORDS SUMMARY | 2025-09-19 12:57 | XMS_ITS | Clinical Summary ---
Author Organization [facility] Address [address] [place] [address] Care Team Providers Care Lung Splitter Name Role Phone Kavon Owen MD Primary Care Provider [phone] Source Comments [facility],non-owned Affiliates and Associated Physician Practices is amultiple site organization consisting of ambulatory clinics and hospital sitesin [place], [place] and [place]. This disclosure is being madepursuant to the Care Everywhere program and may not contain all information available regarding this patient. Last updated 18.[facility] Allergies No known active allergies Medications * Be aware that medications may not be up to date on this document. Alwaysverify current medications with the patient. lisinopril (PRINIVIL; ZESTRIL) 10 MG tablet Take 10 mg by mouth once daily Active levothyroxine (SYNTHROID) 25 MCG tablet Take 25 mcg by mouth daily before breakfast Active meloxicam (MOBIC) 15 MG tablet Take 15 mg by mouth once daily Active aspirin (ASPIRIN) 81 MG chew tablet Take 1 Tab by mouth once daily 6 Active nitroGLYCERIN (NITROSTAT) 0.4 MG tablet Dissolve 1 Tab under the tongue every 5 minutes as needed for Angina (Chest pain) 10 Tab 6 Active metFORMIN (GLUCOPHAGE) 1000 MG tablet Take 1 Tab by mouth 2 times daily with morning and evening meal Resume on 09/20/16 60 Tab 1 6 Active atorvastatin (LIPITOR) 40 MG tablet Take 1 Tab by mouth at bedtime 30 Tab 1 6 Active metoprolol tartrate (LOPRESSOR) 25 MG tablet Take 1 Tab by mouth 2 times daily 60 Tab 1 6 Active clopidogrel (PLAVIX) 75 MG tablet Take 1 Tab by mouth once daily 30 Tab 1 6 Active Social History Tobacco Use Types Packs/Day Years Used Date Smoking Tobacco: Every Day Cigarettes Tobacco Cessation:Ready to Q uit: No; Counseling Given: Yes Alcohol Use Standard Drinks/Week Comments Yes 21 (1 standard drink = 0.6 oz pu re alcohol) Sex and Gender Information Value Date Recorded Sex Assigned at Not on file Legal Sex Male 5:02 PM CDT Gender Identity Not on file Sexual Orientation [...] 6:47 AM CDT Height 177.8 cm (5' 10) 09/18/2016 6:08 PM CDT Body Mass Index [...] VACCINES (1 - Tdap) 1984 PNEUMOCOCCAL VACCINE 50+ (1 of 1 - PCV) 2015 ZOSTER VACCINE (1 of 2) 2015 DEPRESSION SCREENING 11/23/2024 COVID-19 VACCINE (1 - 2023-2 5 season) 2025 INFLUENZA VACCINE (#1) 2025 Respiratory Syncytial Virus (RSV) Vaccine Pt: or [...] to complete this topic MENINGOCOCCAL (Group B) VACC INE SHARED DECISION-MAKING Aged Out No longer eligibl e based on patient's age to complete this topic MENINGOCOCCAL GROUPS A/C/Y/W VACCINE Aged Out No longer eligible b ased on patient's age to complete this topic Additional Health Concerns Infection Onset Date 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
--- OUTSIDE RECORDS SUMMARY | 2025-09-19 12:57 | XMS_ITS | Encounter Summary ---
Author Organization [email or web address] Address 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
== END 2025-09-19 11:00 | disposition home or self-care (01) ==
LOC: ANHGOSHLAB 11:00
PROVIDERS: PCP Nurse Practitioner Family; Visit Provider Nurse Practitioner Family
DX: Z12.5 Encounter for screening for malignant neoplasm of prostate (principal); E03.9 Hypothyroidism, unspecified; E11.9 Type 2 diabetes mellitus without complications; E78.5 Hyperlipidemia, unspecified; I10 Essential (primary) hypertension
CPT/HCPCS: 36415

== ENCOUNTER 2025-09-19 11:14 | Outpatient (CLI) | payer OTHER, SELFPAY ==
--- NOTE | ~2025-09-19 | XR_ITS ---
EXAMINATION: XR elbow RT 2V, 09/19/2025 11:22 CDT HISTORY: Pain in right elbow since thursday, no inj, no surg COMPARISON: No comparisons available. Findings: Remote corticated fractures of the lateral epicondyles, no acute fracture is identified No significant degenerative changes. Soft tissues unremarkable. Impression: No acute fracture or malalignment. Reviewed, dictated and finalized at location P. Impression: No acute fracture or malalignment.
== END 2025-09-19 11:15 | disposition home or self-care (01) ==
LOC: GOSHIMG 11:15
PROVIDERS: PCP Nurse Practitioner Family; Visit Provider Nurse Practitioner Family
DX: M25.521 Pain in right elbow (principal); M25.421 Effusion, right elbow
CPT/HCPCS: 73070

== ENCOUNTER 2025-09-28 17:23 | Inpatient (IN) | payer OTHER, SELFPAY ==
--- OUTSIDE RECORDS SUMMARY | 2006-03-03 04:15 | XMS_ITS | Continuity of Care Document ---
Author Organization [facility] Address [address] [place] [address] [place] [address] Phone Care Team Providers Care Batch Mixing Truck Driver Name Role Phone Maciej Esteves MD Unavailable Unavailable Advance Directives Directive Yes / No Effective Date File Name No Information Encounters Encounter Description Practice Location Reason(s) For Visit Diagnoses Date Provider Providers Copied on Encounter [facility], [address] [place] [address] [address], [place], [place], [address], [place] tel:[phone] SEC [facility] No Information [address] [facility] A, [place], [place], [address], [place]. tel:[phone] Family History Family Member Type Diagnosis Age [...]
--- OUTSIDE RECORDS SUMMARY | 2006-03-03 04:15 | XMS_ITS | Continuity of Care Document ---
Author Organization [facility] Address [address] [place] [address] [place] [address] Phone Care Team Providers Care Cognos Bi Developer Name Role Phone Maciej Esteves MD Unavailable Unavailable Advance Directives Directive Yes / No Effective Date File Name No Information Encounters Encounter Description Practice Location Reason(s) For Visit Diagnoses Date Provider Providers Copied on Encounter [facility], [address] [place] [address] [address], [place], [place], [address], [place] tel:[phone] [facility] No Information [address] [facility] A, [place], [place], [address], [place]. tel:[phone] Family History Family Member Type Diagnosis Age [...]
--- NOTE | ~2025-09-28 | US_ITS ---
Examination: Ultrasound of the retroperitoneum including kidneys and bladder. Clinical History: elevated creatinine . Comparison: MRI abdomen 03/04/2024. Findings: Right kidney: 11 cm. Normal echogenicity. No collecting system dilatation. No shadowing calculi. Left kidney: 11 cm. Normal echogenicity. No collecting system dilatation. No shadowing calculi. Urinary bladder: No wall thickening or focal abnormality. IMPRESSION: 1. No acute abnormality. Reviewed, dictated and finalized at location R. ING MANAGER IMPRESSION: 1. No acute abnormality.
--- NOTE | ~2025-09-28 | XR_ITS ---
EXAMINATION: XR elbow RT min 3V, 09/28/2025 17:45 E COMMERCE MERCHANDISING COORDINATOR HISTORY: right elbow pain, swelling COMPARISON: No comparisons available. Findings: No acute fracture or malalignment. Moderate degenerative changes. Large joint effusion. Soft tissues unremarkable. Impression: No acute fracture or malalignment. Reviewed, dictated and finalized at location P. E COMMERCE MERCHANDISING COORDINATOR Impression: No acute fracture or malalignment.
--- NOTE | ~2025-09-28 | CT_ITS ---
EXAM/PROCEDURE: CT UE RT w con HISTORY: Septic joint - elbow COMPARISON: None available. TECHNIQUE: Contrast enhanced CT exam through the right elbow FINDINGS: Moderate size joint effusion present with synovial enhancement concerning for septic arthritis. No gross bony erosive changes. Moderate infiltrative changes in the subcutaneous soft tissues. No extra articular fluid collection or abscess seen. IMPRESSION: Findings suspicious for septic arthritis or septic joint effusion with intra- articular cellulitis. No cortical erosion seen to confirm osteomyelitis. NOTE: Preliminary radiology report provided by [facility] physician/radiologist. Reviewed, dictated and finalized at location A. OMER SERVICE DRIVER IMPRESSION: Findings suspicious for septic arthritis or septic joint effusion with intra-ar ticular cellulitis. No cortical erosion seen to confirm osteomyelitis. NOTE: Preliminary radiology report provided by [facility] physician/radiologist.
--- NOTE | ~2025-09-28 | US_ITS ---
EXAMINATION: US percutaneous drain w cath DATE: 09/29/2025 15:40 INDICATION: Septic arthritis at the right elbow TECHNIQUE: The procedure and its risks and benefits were discussed with the patient. Potential risks discussed included bleeding and infection. The skin was prepped and draped in sterile fashion. 1% lidocaine was used for local anesthesia. Under ultrasound guidance, a 5 Fr catheter with trochar was advanced into the posterior recess of the right elbow joint. 6 mm of reddish-orange fluid was aspirated and sent to lab for ordered by the referring physician. The catheter was left in place and a sterile dressing applied. A three-way stopcock and suction drainage catheter were attached for planned lavaged performed by Dr. Ochoa. There were no immediate complications. FINDINGS: Ultrasound images demonstrate a few thin linear internal septations within an anechoic right elbow joint effusion lesion posterior to the elbow joint. Subsequent images demonstrate the catheter advanced into the fluid at the posterior recess. IMPRESSION: 1. Successful ultrasound-guided drainage catheter placement into the posterior recess of the right elbow joint effusion. 2. 6 mL of [id number] fluid was aspirated and sent to the lab. Reviewed, dictated and finalized at location A. AIN AIRLINE PILOT IMPRESSION: 1. Successful ultrasound-guided drainage catheter placement into the posterior recess of the right elbow joint effusion. 2. 6 mL of [id number] fluid was aspirated and sent to the lab.
[2025-09-28 17:40] VITALS: BP 138/63; PULSE 70; RESP 16; TEMP 37.2; O2SAT 96
--- NOTE | 2025-09-28 17:41 | ED_ITS ---
HPI - Extremity Problem General Chief complaint: Extremity Problem,Nontraumatic <Lucretia Del Rosario PA-C - Last Filed: 09/30/25 14:34> Stated complaint: fever <MARY Lo Last Filed: 09/30/25 14:34> Time Seen by Provider: 09/28/25 17:41 <Lucretia Del Rosario PA-C - Last Filed: 09/30/25 14:34> Focused HPI: This is a 60 year old male that presents to the ER for right elbow pain and swelling. Ongoing over the last couple of weeks. Was seen by his PCP and put on a steroid taper. Reports he developed a fever and his outpatient blood work came back abnormal so he was prompted to be seen in the ER. No known injury to the elbow. No previous history of gout. GENERAL: Well-appearing, well-nourished, and in no acute distress. HEAD: Normocephalic, atraumatic. CHEST: No respiratory distress. HEART: Regular rate EXTREMITY: Right elbow with mild edema and warmth with moderately decreased active ROM NEURO: ?Alert and oriented x3. Patient screened in triage and initial orders placed.? ?Additional care and disposition to be based upon?diagnostic testing and treatment. <Lucretia Del Rosario PA-C - Last Filed: 09/30/25 14:34> Related Data Home medications: Home Medications ?Medication ?Instructions ?Recorded ?Confirmed ?Last Taken ?Type aspirin 81 mg tablet,delayed 81 mg PO DAILY 05/17/20 1 11/29/24 09/29/25 History release (Adult Low Dose Aspirin) cholecalciferol (vitamin D3) 50 50 mcg PO DAILY 09/29/25 09/29/25 History mcg (2,000 unit) capsule <MARY Lo Last Filed: 09/30/25 14:34> Allergies/Adverse reactions: Allergies Allergy/AdvReac Type Severity Reaction Status Date / Time amoxicillin AdvReac Intermediate Nausea and Verified 09/29/25 14:28 Vomiting sulfamethoxazole (From AdvReac Nausea and Verified 09/29/25 14:28 Bactrim) Vomiting trimethoprim (From Bactrim) AdvReac Nausea and Verified 09/29/25 14:28 Vomiting <MARY Lo Last Filed: 09/30/25 14:34> Review of Systems 2 Review of Systems: All systems reviewed & are unremarkable except as noted in HPI and below <Lucretia Del Rosario PA-C - Last Filed: 09/30/25 14:34> [facility] Past Medical History Medical History: Medical History 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 chronic kidney disease (~2018) Joint pain Paresthesia Chronic pain Rotator cuff tear, right AAA (abdominal aortic aneurysm) without rupture CAD in [place] artery Chronic pain of both knees Dyslipidemia Essential (primary) hypertension History of diverticulitis Hypothyroidism, unspecified Vitamin D deficiency <Lucretia Del Rosario PA-C - Last Filed: 09/30/25 14:34> Surgical History Surgical History: Surgical History S/P right rotator cuff repair 12/10/2022 History of coronary artery stent placement x2 <Lucretia Del Rosario PA-C - Last Filed: 09/30/25 14:34> Family History Family History: Family History Mother Patient's mother is Father Patient's father is Sibling Diabetes mellitus Other Hypertension <Lucretia Del Rosario PA-C - Last Filed: 09/30/25 14:34> Social History Social History: Social History Social History: The patient is and lives with his . Lori savage had 1 child who . He works for [employer]. He continues to smoke. Code status full code Smoking packs per day: 1.5 Smoking cigarettes per day: 30.0 Years smoked: 40 Smoking pack-years: 60.00 Smoking status: Current every day smoker Tobacco type: cigarettes Second hand tobacco smoke exposure: No Alcohol intake: former Drinks per week: 30 Alcohol use details: quit jul 2022 Substance use: former Substance use type: marijuana Lack of Transportation: No Lack of Food: Never True Current Housing: I Have Housing Concerned About Future Housing: No Difficulty Paying Gas/Electric Bills: No Difficulty Paying for Meds: No Currently Unemployed: No Education: High School Diploma/GED Difficulty w/ Childcare or Family Care: No Living arrangements: with family Occupation/Education: occupation Gender identity (if verbalized by the patient): Male Spiritual care concerns: No <Lucretia Del Rosario PA-C - Last Filed: 09/30/25 14:34> Exam 2 Narrative: APPEARANCE: No apparent distress. Head: atraumatic. EYES: EOMI, NOSE: Atraumatic NECK: Trachea midline RESPIRATORY: No increased rate of breathing CARDIOVASCULAR: RRR, ABDOMINAL: Non-distended MUSCULOSKELETAl: Exam of right elbow revealed large effusion with warmth and erythema to the joint. Passive active range of motion is severely limited due to the effusion. No overlying cellulitic changes. NEURO: Alert. Moving 4/4 extremities SKIN:: Warm, dry. Normal color PSYCHIATRIC: Normal affect <Jc Broderick MD - Last Filed: 09/28/25 23:30> Skin: General skin exam: No normal color <Jc Broderick MD - Last Filed: 09/28/25 23:30> Course Vital Signs Vital signs: Vital Signs Temperature 98.9 F 09/28/25 17:40 Pulse Rate 70 09/28/25 17:40 Respiratory Rate 16 09/28/25 17:40 Blood Pressure 138/63 09/28/25 17:40 Pulse Oximetry 96 09/28/25 17:40 Oxygen Delivery Room Air 09/28/25 17:40 Temperature 97.7 F 09/30/25 14:00 Pulse Rate 62 09/30/25 14:00 Respiratory Rate 18 09/30/25 14:00 Blood Pressure 144/63 H 09/30/25 14:00 Pulse Oximetry 96 09/30/25 14:00 Oxygen Delivery Room Air 09/29/25 20:00 <Lucretia Del Rosario PA-C - Last Filed: 09/30/25 14:34> Vital Signs Temperature 98.9 F 09/28/25 17:40 Pulse Rate 70 09/28/25 17:40 Respiratory Rate 16 09/28/25 17:40 Blood Pressure 138/63 09/28/25 17:40 Pulse Oximetry 96 09/28/25 17:40 Oxygen Delivery Room Air 09/28/25 17:40 Temperature 97.7 F 09/30/25 14:00 Pulse Rate 62 09/30/25 14:00 Respiratory Rate 18 09/30/25 14:00 Blood Pressure 144/63 H 09/30/25 14:00 Pulse Oximetry 96 09/30/25 14:00 Oxygen Delivery Room Air 09/29/25 20:00 <Jc Broderick MD - Last Filed: 09/28/25 23:30> Procedures Joint Aspiration/Injection Joint Asp./Inject. 1: Joint Aspiration Date: 09/28/25 <Jc Broderick MD - Last Filed: 09/28/25 23:30> Time Out Performed: Yes <Jc Broderick MD - Last Filed: 09/28/25 23:30> Side of body: right <Jc Broderick MD - Last Filed: 09/28/25 23:30> Joint Aspirated: elbow <Jc Broderick MD - Last Filed: 09/28/25 23:30> Ultrasound Guidance: Yes <Jc Broderick MD - Last Filed: 09/28/25 23:30> Skin Prep: sterile prep and drape (w/ chloroprep) <Jc Broderick MD - Last Filed: 09/28/25 23:30> Local Anesthetic: bupivacaine 0.25% <Jc Broderick MD - Last Filed: 09/28/25 23:30> Amount of anesthesia used (mL): 4 <Jc Broderick MD - Last Filed: 09/28/25 23:30> Needle Size Used: 18G <Jc Broderick MD - Last Filed: 09/28/25 23:30> Fluid Obtained: turbid <Jc Broderick MD - Last Filed: 09/28/25 23:30> Total fluid obtained (mL): 20 <Jc Broderick MD - Last Filed: 09/28/25 23:30> Patient Tolerated Procedure: well <Jc Broderick MD - Last Filed: 09/28/25 23:30> Complications: none <Jc Broderick MD - Last Filed: 09/28/25 23:30> MDM - Extremity (Nontraumatic) MDM Narrative Medical decision making narrative: -Course: 60-year-old male presenting with a red swollen elbow. Inflammatory markers are elevated. Patient febrile at home 100.6. Joint was tapped showed large amount of white blood cells although they could not do a count due to clotting. G stain was positive for rare Gram-positive cocci. Rare calcium crystals. Case was discussed with Dr. Yang and the patient will be admitted for surgical evaluation of a septic joint. Patient placed on antibiotics. Dr. Yang requested a CT of the elbow which has been ordered and will be followed by the primary team. -DDX includes but is not limited to: Septic joint, inflammatory arthritis, gout, psuedogout <Jc Broderick MD - Last Filed: 09/28/25 23:30> Lab Data Result diagrams: 09/30/25 05:32 09/30/25 05:32 <Lucretia Del Rosario PA-C - Last Filed: 09/30/25 14:34> Labs: Lab Results 09/28/25 09/28/25 Range/Units 17:53 20:54 WBC 10.3 H (4.5-10.0) K/mm3 RBC 3.21 L (4.6-6.20) M/mm3 Hgb 10.8 L (14.0-18.0) g/dL Hct 31.4 L (42.0-52.0) % MCV 97.8 (80-100) fl MCH 33.6 (26-34) pg MCHC 34.4 (32-36) g/dl RDW 11.7 (11.5-14.5) % Plt Count 252 D (150-375) k/mm3 MPV 9.5 (7.4-10.4) fl Immature Gran % (Auto) 1.0 H (0-0.5) % Neut % (Auto) 73.9 H (45.5-73.1) % Lymph % (Auto) 11.7 L (18.3-44.2) % [place] % (Auto) 12.1 H (2.6-8.5) % Eos % (Auto) 0.9 (0-4.4) % Baso % (Auto) 0.4 (0.2-1.2) % Lymph # (Auto) 1.20 (0.9-3.2) K/mm3 [place] # (Auto) 1.2 H (0.1-0.6) K/mm3 Eos # (Auto) 0.1 (0-0.3) K/mm3 Baso # (Auto) 0.0 (0.0-0.1) K/mm3 Abs Immat Gran (auto) 0.10 H (0.00-0.031) K/mm3 Absolute Neuts (auto) 7.6 H (1.3-6.7) K/mm3 Absolute Nucleated RBC 0.000 (0.0-0.012) K/mm3 Nucleated RBC % 0.0 (0.0-0.2) % ESR > 140 H (0-20) mm/hr Sodium 133 L (137-145) mmol/L Potassium 3.8 (3.4-5.0) mmol/L Chloride 101 (98-107) mmol/L Carbon Dioxide 26 (22-30) mmol/L Anion Gap 6 (4-12) mmol/L BUN 31 H D (9-20) mg/dL Creatinine 1.91 H (0.7-1.3) mg/dL Estim Creat Clear Calc 37 ml/min Estimated GFR 36 L (59 - ) Glucose 210 H (65-110) mg/dL Uric Acid 8.4 (3.5-8.5) mg/dL Calcium 7.8 L (8.4-10.2) mg/dL Total Bilirubin 0.5 (0.2-1.3) mg/dL AST 19 (17-59) U/L ALT 18 (6-50) U/L Alkaline Phosphatase 62 (38-126) U/L C-Reactive Protein 7.8 H (<1.0) mg/dL Total Protein 6.2 L (6.3-8.2) g/dL Albumin 3.3 L (3.5-5.1) g/dL Fluid Glucose 54 (.) mg/dL Fluid Total Protein 3.7 (.) g/dL Synovial Source Rt elbow syn fluid Synovial Color Yellow (Colorless) Synovial Appearance Cloudy A (Clear) Synovial RBC (0-0) /uL Synovial Nuc Cells (0-200) /uL Synovial Neutrophils 95 H (0-25) % Synovial Lymphocytes 3 % Synovial Monocytes 2 % Synovial Crystals Rare cppd (None Seen) Synovial Glucose Cancelled Synovial Total Protein Cancelled <Lucretia L. Del Rosario, PA-C - Last Filed: 09/30/25 14:34> Lab Results 09/28/25 09/28/25 Range/Units 17:53 20:54 WBC 10.3 H (4.5-10.0) K/mm3 RBC 3.21 L (4.6-6.20) M/mm3 Hgb 10.8 L (14.0-18.0) g/dL Hct 31.4 L (42.0-52.0) % MCV 97.8 (80-100) fl MCH 33.6 (26-34) pg MCHC 34.4 (32-36) g/dl RDW 11.7 (11.5-14.5) % Plt Count 252 D (150-375) k/mm3 MPV 9.5 (7.4-10.4) fl Immature Gran % (Auto) 1.0 H (0-0.5) % Neut % (Auto) 73.9 H (45.5-73.1) % Lymph % (Auto) 11.7 L (18.3-44.2) % [place] % (Auto) 12.1 H (2.6-8.5) % Eos % (Auto) 0.9 (0-4.4) % Baso % (Auto) 0.4 (0.2-1.2) % Lymph # (Auto) 1.20 (0.9-3.2) K/mm3 [place] # (Auto) 1.2 H (0.1-0.6) K/mm3 Eos # (Auto) 0.1 (0-0.3) K/mm3 Baso # (Auto) 0.0 (0.0-0.1) K/mm3 Abs Immat Gran (auto) 0.10 H (0.00-0.031) K/mm3 Absolute Neuts (auto) 7.6 H (1.3-6.7) K/mm3 Absolute Nucleated RBC 0.000 (0.0-0.012) K/mm3 Nucleated RBC % 0.0 (0.0-0.2) % ESR > 140 H (0-20) mm/hr Sodium 133 L (137-145) mmol/L Potassium 3.8 (3.4-5.0) mmol/L Chloride 101 (98-107) mmol/L Carbon Dioxide 26 (22-30) mmol/L Anion Gap 6 (4-12) mmol/L BUN 31 H D (9-20) mg/dL Creatinine 1.91 H (0.7-1.3) mg/dL Estim Creat Clear Calc 37 ml/min Estimated GFR 36 L (59 - ) Glucose 210 H (65-110) mg/dL Uric Acid 8.4 (3.5-8.5) mg/dL Calcium 7.8 L (8.4-10.2) mg/dL Total Bilirubin 0.5 (0.2-1.3) mg/dL AST 19 (17-59) U/L ALT 18 (6-50) U/L Alkaline Phosphatase 62 (38-126) U/L C-Reactive Protein 7.8 H (<1.0) mg/dL Total Protein 6.2 L (6.3-8.2) g/dL Albumin 3.3 L (3.5-5.1) g/dL Fluid Glucose 54 (.) mg/dL Fluid Total Protein 3.7 (.) g/dL Synovial Source Rt elbow syn fluid Synovial Color Yellow (Colorless) Synovial Appearance Cloudy A (Clear) Synovial RBC (0-0) /uL Synovial Nuc Cells (0-200) /uL Synovial Neutrophils 95 H (0-25) % Synovial Lymphocytes 3 % Synovial Monocytes 2 % Synovial Crystals Rare cppd (None Seen) Synovial Glucose Cancelled Synovial Total Protein Cancelled <Jc Broderick MD - Last Filed: 09/28/25 23:30> Imaging Data Radiologist's impression: ITS Impressions Elbow X-Ray 09/28/25 17:58 Impression: No acute fracture or malalignment. <Lucretia Del Rosario PA-C - Last Filed: 09/30/25 14:34> Discharge Plan Discharge Clinical Impression: Arthritis, septic, elbow Qualifiers: Septic arthritis organism: due to unspecified organism Laterality: right Q ualified Code(s): M00.9 - Pyogenic arthritis, unspecified <Lucretia Del Rosario PA-C - Last Filed: 09/30/25 14:34> Patient Disposition: Still a Patient <Lucretia Del Rosario PA-C - Last Filed: 09/30/25 14:34> Condition: Stable <Lucretia Del Rosario PA-C - Last Filed: 09/30/25 14:34>
[2025-09-28 17:59] LABS: Hematocrit 31.4 % (42.0-52.0); Hemoglobin 10.8 g/dL (14.0-18.0); Immature Granulocyte Percent A 1.0 % (0-0.5); Lymphocytes Absolute Auto 1.20 K/mm3 (0.9-3.2); Mean Corpuscular HGB Conc 34.4 g/dl (32-36); Mean Corpuscular Hemoglobin 33.6 pg (26-34); Mean Corpuscular Volume 97.8 fl (80-100); Nucleated Red Blood Cells Absolute Auto 0.000 K/mm3 (0.0-0.012); Nucleated Red Blood Cells Perc 0.0 % (0.0-0.2); Platelet Count Result 252 k/mm3 (150-375); Red Blood Count 3.21 M/mm3 (4.6-6.20); White Blood Count 10.3 K/mm3 (4.5-10.0)
[2025-09-28 18:13] LABS: Alanine Aminotransferase 18 U/L (6-50); Albumin Level 3.3 g/dL (3.5-5.1); Alkaline Phosphatase 62 U/L (38-126); Anion Gap 6 mmol/L (4-12); Aspartate Amino Transferase 19 U/L (17-59); Bilirubin,Total 0.5 mg/dL (0.2-1.3); Blood Urea Nitrogen 31 mg/dL (9-20); CRP 7.8 mg/dL (<1.0); Calcium 7.8 mg/dL (8.4-10.2); Carbon Dioxide 26 mmol/L (22-30); Chloride 101 mmol/L (98-107); Estimated CRCL calculation 37 ml/min; Estimated Glomerular Filt Rate 36; Glucose 210 mg/dL (65-110); Potassium 3.8 mmol/L (3.4-5.0); Sodium 133 mmol/L (137-145); Total Protein 6.2 g/dL (6.3-8.2); Uric Acid 8.4 mg/dL (3.5-8.5)
[2025-09-28 19:35] VITALS: BP 179/71; PULSE 65; RESP 19; O2SAT 98
--- OUTSIDE RECORDS SUMMARY | 2025-09-28 21:11 | XMS_ITS | Clinical Summary ---
Author Organization [facility] Address [address] [place] [address] Care Team Providers Care Lead Burner Apprentice Name Role Phone Kavon Owen MD Primary Care Provider [phone] [facility],non-owned Affiliates and Associated Physician Practices is amultiple site organization consisting of ambulatory clinics and hospital sitesin [place], [place], [place] and [place]. This disclosure is being madepursuant to the Care Everywhere program and may not contain all information available regarding this patient. Last updated 18.[facility] Allergies No known active allergies Medications * [...] 8:22 PM 09/18/2016 8:51 PM Care Teams Lead Burner Apprentice Relationship Specialty Start Date End Date Kavon Owen MD [address] [address] PCP - General Internal Medicine 09/18/16
--- OUTSIDE RECORDS SUMMARY | 2025-09-28 21:11 | XMS_ITS | Clinical Summary ---
Author Organization [email or web address] Address [address] 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
--- OUTSIDE RECORDS SUMMARY | 2025-09-28 21:11 | XMS_ITS | Encounter Summary ---
Author Organization [employer] Address 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
[2025-09-28] MEDS: CEFEPIME 2 GM in SODIUM CHLORIDE 0.9% IV 50 ML 100 ML IVPB (21:54)
[2025-09-28] MEDS: NICOTINE (*PBKC) 21 MG PATCH 1 PATCH TRANSDERM (22:03)
[2025-09-28] MEDS: VANCOMYCIN 1,250 MG/NS 250 ML 1,250 MG/250 ML BAG 166.67 MG IVPB (22:03)
[2025-09-28 22:13] VITALS: BP 157/77; PULSE 69; RESP 18; O2SAT 98
[2025-09-28 22:34] LABS: Color Synovial Fluid Yellow (Colorless); Source Synovial Fluid RT Elbow Syn Fluid
[2025-09-28 22:35] LABS: Lymphocytes Synovial Fluid 3 %; Monocytes Synovial Fluid 2 %; Neutrophils Synovial Fluid 95 % (0-25)
[2025-09-28] MEDS: LACTATED RINGERS 1,000 ML 75 ML IV CONT (23:20)
--- NOTE | 2025-09-28 23:20 | PC.NURSE ---
[facility] states vanc and LR can run together and are IV compatible.
[2025-09-29] VITALS (10 sets, daily range): BP systolic 155–195; BP diastolic 62–78; PULSE 64–69; RESP 14–20; TEMP 36.8–37.6; O2SAT 94–99; BMI 27.3
--- NOTE | 2025-09-29 01:11 | ADMGEN ---
This patient, Tray Patel, was admitted to [facility] Surg Room 309-01. Patient/family oriented to hospital policies and general routines including ID bracelet, bed and alarms, visiting hours, pain management, procedures, bathroom and other care routines, personal items, smoking policy, room service/diet, and visiting hours. Information on how to activate the Rapid Response Team has been discussed. Patient/Family are encouraged to report perceived risks to care and to ask questions if they do not understand what they are told or what they should do.
--- NOTE | 2025-09-29 02:30 | PM.IMHP ---
H&P: HPI History of Present Illness Date/Time: 09/29/25 05:30 Chief Complaint: Right elbow pain, joint effusion, septic arthritis right elbow Narrative: This is a 60 year old male patient with history of hypertension type 2 diabetes, coronary artery disease hyperlipidemia COPD and chronic kidney disease who is admitted to the hospital for septic right elbow. For the last 2 weeks or so patient has experiencing right elbow pain and swelling. He developed fever and chills with increased swelling which brought him to the emergency department for evaluation. Workup in the emergency department reveals right elbow joint effusion with limited range of motion. Labs significant for acute kidney injury on reported chronic kidney disease as well as mild hyponatremia mild leukocytosis mild anemia. Inflammatory markers significantly elevated with ESR greater than 140 and CRP of 7.8. Joint effusion was aspirated in the emergency department and Gram stain was positive for Gram-positive cocci as well as numerous white blood cells. There were also CPPD crystals noted though the crystals were rare. This aspirate leads to a diagnosis septic right elbow with pseudogout. Orthopedics, Dr. Yang, consulted by [facility] to keep patient NPO after midnight for joint washout in the operating room. Review of Systems Review of Systems: All systems reviewed & are unremarkable except as noted in HPI and below PMFSH Past Medical History Medical History 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 chronic kidney disease (~2018) Joint pain Paresthesia Chronic pain Rotator cuff tear, right AAA (abdominal aortic aneurysm) without rupture CAD in [place] artery Chronic pain of both knees Dyslipidemia Essential (primary) hypertension History of diverticulitis Hypothyroidism, unspecified Vitamin D deficiency Surgical History Surgical History S/P right rotator cuff repair 12/10/2022 History of coronary artery stent placement x2 Family History Family History Mother Patient's mother is Father Patient's father is Sibling Diabetes mellitus Other Hypertension Social History Social History Social History: The patient is and lives with his . Lori savage had 1 child who . He works for [employer] He continues to smoke. Code status full code Smoking packs per day: 1.5 Smoking cigarettes per day: 30.0 Years smoked: 40 Smoking pack-years: 60.00 Smoking status: Current every day smoker Tobacco type: cigarettes Second hand tobacco smoke exposure: No Alcohol intake: former Drinks per week: 30 Alcohol use details: quit jul 2022 Substance use: former Substance use type: marijuana Lack of Transportation: No Lack of Food: Never True Current Housing: I Have Housing Concerned About Future Housing: No Difficulty Paying Gas/Electric Bills: No Difficulty Paying for Meds: No Currently Unemployed: No Education: High School Diploma/GED Difficulty w/ Childcare or Family Care: No Living arrangements: with family Occupation/Education: occupation Gender identity (if verbalized by the patient): Male Spiritual care concerns: No Meds Home Medications and Allergies Home Medications ?Medication ?Instructions ?Recorded ?Confirmed ?Type aspirin 81 mg tablet,delayed 81 mg PO DAILY 05/17/20 09/29/25 History release (Adult Low Dose Aspirin) cholecalciferol (vitamin D3) 50 50 mcg PO DAILY 03/04/21 09/29/25 History mcg (2,000 unit) capsule melatonin 5 mg tablet 5 mg PO HS #30 tabs 03/06/23 09/29/25 Rx nitroglycerin 0.4 mg sublingual 0.4 mg sublingual Q5M PRN chest 02/28/25 09/29/25 Rx tablet pain #30 tabs atorvastatin 10 mg tablet (Lipitor) 10 mg PO DAILY #90 tabs 03/03/25 09/29/25 Rx pantoprazole 40 mg tablet,delayed 40 mg PO BID #60 tabs 03/28/25 09/29/25 Rx release metformin 1,000 mg tablet 1,000 mg PO BID #180 tabs 04/19/25 09/29/25 Rx albuterol sulfate 90 mcg/actuation See Rx Instructions .Route 06/22/25 09/29/25 Rx aerosol inhaler .COMPLEX #6.7 grams ondansetron 4 mg disintegrating 4 mg PO Q8H PRN nausea and 07/14/25 09/29/25 Rx tablet vomiting #30 tabs levothyroxine 25 mcg tablet 25 mcg PO DAILY #90 tabs 07/25/25 09/29/25 Rx lisinopril 20 mg tablet 20 mg PO BID #180 tabs 08/09/25 09/29/25 Rx amlodipine 5 mg tablet 5 mg PO DAILY #90 tabs 09/12/25 09/29/25 Rx carvedilol 12.5 mg tablet 12.5 mg PO Q12H #180 tabs 09/12/25 09/29/25 Rx hydrochlorothiazide 25 mg tablet 25 mg PO DAILY #90 tabs 09/12/25 09/29/25 Rx trazodone 50 mg tablet See Rx Instructions PO QHS PRN 09/12/25 09/29/25 Rx sleep #60 tabs hydrocodone 5 mg-acetaminophen 325 1 tablet PO Q8H PRN pain #20 tabs 09/19/25 09/29/25 Rx mg tablet Allergies Allergy/AdvReac Type Severity Reaction Status Date / Time amoxicillin AdvReac Intermediate Nausea and Verified 09/29/25 01:38 Vomiting sulfamethoxazole (From AdvReac Nausea and Verified 09/29/25 01:38 Bactrim) Vomiting trimethoprim (From Bactrim) AdvReac Nausea and Verified 09/29/25 01:38 Vomiting Vital Signs Vital Signs - 24 hr 09/28/25 17:40 09/28/25 19:35 09/28/25 22:13 Temperature 37.2 C Pulse Rate 70 65 69 Respiratory Rate 16 19 18 Blood Pressure 138/63 179/71 H 157/77 H Pulse Oximetry 96 98 98 Oxygen Delivery Room Air 09/29/25 00:02 09/29/25 01:49 Temperature Pulse Rate 64 64 Respiratory Rate 20 20 Blood Pressure 165/78 H Pulse Oximetry 99 99 Oxygen Delivery Room Air Exam Narrative: GENERAL: Well-appearing, well-nourished, and in no acute distress. HEAD: Normocephalic, atraumatic. ENT:? Mucous membranes moist. CHEST: Clear to auscultation.? No respiratory distress. HEART: Regular rate and rhythm. ? Normal peripheral pulses. ABDOMEN: Soft, nontender, nondistended. EXTREMITIES: Right elbow with warmth and edema decreased range of motion and site of recent drainage SKIN: Warm dry normal color NEURO: Alert and oriented x3. PSYCH: Normal mood and affect H&P: Results Labs Labs: Short CBC 09/28/25 Range/Units 17:53 WBC 10.3 H (4.5-10.0) K/mm3 Hgb 10.8 L (14.0-18.0) g/dL Hct 31.4 L (42.0-52.0) % Plt Count 252 D (150-375) k/mm3 BMP 09/28/25 17:53 Sodium 133 L Potassium 3.8 Chloride 101 Carbon Dioxide 26 BUN 31 H D Creatinine 1.91 H Glucose 210 H Calcium 7.8 L Liver Function 09/28/25 Range/Units 17:53 Total Bilirubin 0.5 (0.2-1.3) mg/dL AST 19 (17-59) U/L ALT 18 (6-50) U/L Alkaline Phosphatase 62 (38-126) U/L Albumin 3.3 L (3.5-5.1) g/dL Pulse Oximetry SpO2 results: 98-99% on room air Attestation: I personally reviewed and interpreted this pulse oximetry as follows: Interpretation: No need for supplemental oxygenation at this time Imaging Right elbow x-ray: Radiologist's impression: EXAMINATION: XR elbow RT min 3V, 09/28/2025 17:45 [employer]K PLANT [employer]ENT HISTORY: right elbow pain, swelling COMPARISON: No comparisons available. Findings: No acute fracture or malalignment. Moderate degenerative changes. Large joint effusion. Soft tissues unremarkable. Impression: No acute fracture or malalignment. Reviewed, dictated and finalized at location [employer]. PLANT AGENT Assessment and Plan Assessment and plan (1) Arthritis, septic, elbow: Code(s): M00.9 - Pyogenic arthritis, unspecified Status: Acute Assessment and Plan: Right elbow effusion worsening over 2 weeks CPPD crystals noted Gram positive cocci and many WBCs on Gram Stain of aspirate in ER Vancomycin and cefepime started in ER, both renally dosed due to CHITRA Dr. Yang plans to take patient to OR on 09/29/25 NPO on admission--carb consistent diet after OR (2) Acute kidney injury superimposed on CKD: Code(s): N17.9 - Acute kidney failure, unspecified; N18.9 - Chronic kidney disease, unspecified Status: Acute Assessment and Plan: History of Stage 3 CKD CHITRA noted with Cr 1.91 and eGFR 36 2 liters IV fluids given in ER and IV fluids while NPO before surgery ordered Avoid nephrotoxins Check labs in AM May need to adjust antibiotics based on renal function response Hold HCTZ, metformin and lisinopril (3) 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 chronic kidney disease: Onset Date: ~2017 Qualifiers: Chronic kidney disease stage 3 subtype: stage 3a (GFR 45-59) Diabetes mellitus skilled nursing insulin use: without skilled nursing use Qualified Code(s): E11.22 - Type 2 diabetes mellitus with diabetic chronic kidney disease; N18.31 - Chronic kidney disease, stage 3a Code(s): E11.22 - Type 2 diabetes mellitus with diabetic chronic kidney disease; N18.30 - Chronic kidney disease, stage 3 unspecified Status: Acute Assessment and Plan: Hold metformin due to renal function A1c 5.7 in August 2025 (4) Essential (primary) hypertension: Code(s): I10 - Essential (primary) hypertension Status: Acute Assessment and Plan: Continue amlodipine and carvedilol, hold HCTZ and lisinopril due to CHITRA on CKD Use alternate blood pressure management if renal function does not improve after fluids (5) COPD (chronic obstructive pulmonary disease): Code(s): J44.9 - Chronic obstructive pulmonary disease, unspecified Status: Acute Assessment and Plan: Stable, continue home medications Quality VTE Prophylaxis VTE prophylaxis: mechanical ordered If No VTE Prophylaxis Answer both mechanical and pharmacologic: Reason no pharmacologic proph: medical contraindication (Going to OR on 09/29/25) Hospitalist MIPS Advance Care Plan I have confirmed that the patient's Advanced Care Plan is present, code status is documented, or surrogate decision maker is listed in patient medical record.: Yes Medication Reconciliation I have utilized all available resources to obtain, update and review the patients current medications (includes all prescriptions, OTC, herbals, cannabis, and nutritional supplements).: Yes
[2025-09-29] MEDS: HYDROcodone/acetaminophen (*CRX) 5-325 MG TABLET 1 TAB PO (03:28)
[2025-09-29] MEDS: LEVOTHYROXINE SODIUM 25 MCG TABLET PO (05:50)
[2025-09-29 06:35] LABS: Hematocrit 30.5 % (42.0-52.0); Hemoglobin 10.3 g/dL (14.0-18.0); Immature Granulocyte Percent A 1.0 % (0-0.5); Lymphocytes Absolute Auto 1.05 K/mm3 (0.9-3.2); Mean Corpuscular HGB Conc 33.8 g/dl (32-36); Mean Corpuscular Hemoglobin 33.6 pg (26-34); Mean Corpuscular Volume 99.3 fl (80-100); Nucleated Red Blood Cells Absolute Auto 0.000 K/mm3 (0.0-0.012); Nucleated Red Blood Cells Perc 0.0 % (0.0-0.2); Platelet Count Result 217 k/mm3 (150-375); Red Blood Count 3.07 M/mm3 (4.6-6.20); White Blood Count 9.6 K/mm3 (4.5-10.0)
[2025-09-29 06:55] LABS: Alanine Aminotransferase 13 U/L (6-50); Albumin Level 3.0 g/dL (3.5-5.1); Alkaline Phosphatase 67 U/L (38-126); Anion Gap 5 mmol/L (4-12); Aspartate Amino Transferase 24 U/L (17-59); Bilirubin,Total 0.7 mg/dL (0.2-1.3); Blood Urea Nitrogen 26 mg/dL (9-20); Calcium 7.8 mg/dL (8.4-10.2); Carbon Dioxide 27 mmol/L (22-30); Chloride 102 mmol/L (98-107); Estimated CRCL calculation 40 ml/min; Estimated Glomerular Filt Rate 40; Glucose 115 mg/dL (65-110); Magnesium 1.5 mg/dL (1.6-2.3); Potassium 3.4 mmol/L (3.4-5.0); Sodium 134 mmol/L (137-145); Total Protein 5.9 g/dL (6.3-8.2)
[2025-09-29 06:57] LABS: Iron 22 ug/dL (49-181)
[2025-09-29 07:04] LABS: Procalcitonin 0.2 ng/mL
[2025-09-29 07:06] LABS: Percent Iron Saturation 12 % (20-50)
[2025-09-29] MEDS: CYCLOBENZAPRINE HCL 10 MG TABLET PO (07:35)
[2025-09-29 07:38] LABS: Ferritin 156.00 ng/mL (11.1-264)
[2025-09-29 07:54] LABS: Vitamin B12 236.0 pg/mL (239-931)
--- NOTE | 2025-09-29 08:10 | ECG_ITS ---
Test Date: 2025-09-29 09:06:58 Measurements Intervals [place] Rate: 67 P: 65 MN: 185 QRS: 26 QRSD: 100 T: 43 QT: 397 QTc: 421 Interpretive Statements SINUS RHYTHM LEFT ATRIAL ENLARGEMENT POSSIBLE LEFT VENTRICULAR HYPERTROPHY Electronically Signed On 09-29-2025 10:06:06 REGISTERED VETERINARY TECHNICIAN by Vaughn Guardado D.O
[2025-09-29 08:32] LABS: Hemoglobin A1C 5.6 % (<5.7)
--- NOTE | 2025-09-29 09:06 | PM.IMPN ---
Progress Note: A&P Assessment and Plan (1) Arthritis, septic, elbow: Code(s): M00.9 - Pyogenic arthritis, unspecified Status: Acute Assessment and Plan: Right elbow effusion worsening over 2 weeks CPPD crystals noted Gram positive cocci and many WBCs on Gram Stain of aspirate in ER--follow cultures ID consulted, appreciate recommnedations Vancomycin and cefepime started in ER, both renally dosed due to CHITRA, continuing Orthopedic surgery consulted, Dr. Barone evaluated today. IR drain placed, discussing transfer to [place] NPO on admission--now on a carb consistent diet (2) Acute kidney injury superimposed on CKD: Code(s): N17.9 - Acute kidney failure, unspecified; N18.9 - Chronic kidney disease, unspecified Status: Acute Assessment and Plan: History of Stage 3 CKD CHITRA noted with Cr 1.91 and eGFR 36 2 liters IV fluids given in ER and IV fluids while NPO before surgery ordered Avoid nephrotoxins Follow BMP May need to adjust antibiotics based on renal function response Hold HCTZ, metformin and lisinopril (3) 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 chronic kidney disease: Onset Date: ~2017 Qualifiers: Chronic kidney disease stage 3 subtype: stage 3a (GFR 45-59) Diabetes mellitus prison insulin use: without termite exterminator use Qualified Code(s): E11.22 - Type 2 diabetes mellitus with diabetic chronic kidney disease; N18.31 - Chronic kidney disease, stage 3a Code(s): E11.22 - Type 2 diabetes mellitus with diabetic chronic kidney disease; N18.30 - Chronic kidney disease, stage 3 unspecified Status: Acute Assessment and Plan: Hold metformin due to renal function A1c 5.7 in August 2025 Check accuchecks ACHS --Low dose Sliding scale since off metformin (4) Essential (primary) hypertension: Code(s): I10 - Essential (primary) hypertension Status: Acute Assessment and Plan: Home meds: amlodipine and carvedilol, hold HCTZ and lisinopril due to CHITRA on CKD Use alternate blood pressure management if renal function does not improve after fluids Increase hydralazine to 25mg TID<QID Increase amlodipine from 5mg<7.5mg Continue Carvedilol 12.5mg BID (5) COPD (chronic obstructive pulmonary disease): Code(s): J44.9 - Chronic obstructive pulmonary disease, unspecified Status: Acute Assessment and Plan: Stable, continue home medications Time Spent With Patient Time: 59 minutes Subjective Date/time seen: 09/29/25 18:15 Interval history: Afebrile. BP elevated to 179/62 this morning. Having pain, scheduled tylenol, changed vicodin to q4 prn added dilaudid Increasing hydralazine to 25mg QID Creatinine 1.75 Patient went to IR for a drain placement today. Orthopedic surgery discussing transfer to [place] Review of Systems Review of Systems: All systems reviewed & are unremarkable except as noted in HPI and below Exam Narrative: GENERAL: Well-appearing, well-nourished, and in no acute distress. HEAD: Normocephalic, atraumatic. ENT:? Mucous membranes moist. CHEST: Clear to auscultation.? No respiratory distress. HEART: Regular rate and rhythm. ? Normal peripheral pulses. ABDOMEN: Soft, nontender, nondistended. EXTREMITIES: Right elbow with warmth and edema decreased range of motion and site of recent drainage, drain in place SKIN: Warm dry normal color NEURO: Alert and oriented x3. PSYCH: Normal mood and affect Objective Data Vital Signs Vital Signs: Vital Signs - 24 hr 09/28/25 17:40 09/28/25 19:35 09/28/25 22:13 Temperature 98.9 F Pulse Rate 70 65 69 Respiratory Rate 16 19 18 Blood Pressure 138/63 179/71 H 157/77 H Pulse Oximetry 96 98 98 Oxygen Delivery Room Air 09/29/25 00:02 09/29/25 01:49 09/29/25 05:09 Temperature 98.2 F Pulse Rate 64 64 68 Respiratory Rate 20 20 16 Blood Pressure 165/78 H 179/62 H Pulse Oximetry 99 99 98 Oxygen Delivery Room Air Intake/Output Intake/Output: Intake & Output 09/26/25 09/27/25 09/28/25 09/29/25 23:59 23:59 23:59 23:59 Intake Total 50 Balance 50 Meds/Results Medications: Active Medications Generic Name Dose Route Start Last Admin Trade Name Freq PRN Reason Stop Dose Admin Hydrocodone Bitart/Acetaminophen 1 tab 09/29/25 01:31 09/29/25 03:28 Hydrocodone/Acetaminophen (*Crx) 5-325 Mg Tablet PO 1 tab Q8H PRN Administration Pain Albuterol 1 puff 11/07/25 01:31 Albuterol Sulfate (*Sp) Aerosol 1 Puff INHALATION Q4HR PRN shortness of breath or Wheezing Amlodipine Besylate 5 mg 09/29/25 09:00 Amlodipine Besylate 5 Mg Tablet PO DAILY [facility] Atorvastatin Calcium 10 mg 09/29/25 09:00 Atorvastatin 10 Mg Tablet PO DAILY [facility] Carvedilol 12.5 mg 09/29/25 09:00 Carvedilol 12.5 Mg Tablet PO Q12HR [facility] Dextrose 12.5 gm 09/29/25 02:43 Dextrose 50% 25 Gm/50 Ml Syringe IV PUSH PRN PRN Hypoglycemia Protocol Glucagon 1 mg 09/29/25 02:43 Glucagon For Inj 1 Mg Vial IM PRN PRN Hypoglycemia Protocol Glucose 15 gm 09/29/25 02:43 Glucose Oral Gel 15 Gm Of Glucse In 37.5 Gm Tube PO PRN PRN Hypoglycemia Protocol Cefepime HCl 2 gm/ Sodium 50 mls @ 100 mls/hr 09/29/25 10:00 Chloride IVPB Q12H [facility] Dextrose 1,000 mls @ 100 mls/hr 09/29/25 02:43 Dextrose 5% 1,000 Ml IVPB PRN PRN Hypoglycemia Protocol Dextrose/Sodium Chloride 1,000 mls @ 80 mls/hr 09/29/25 08:15 Dextrose 5% Sodium Chloride 0.9% IV CONT .[id number] [facility] Levothyroxine Sodium 25 mcg 09/29/25 06:30 09/29/25 05:50 Levothyroxine Sodium 25 Mcg Tablet PO 25 mcg DAILY@0630 [facility] Administration Melatonin 5 mg 09/29/25 02:00 09/29/25 02:54 Melatonin 5 Mg Tablet PO Not Given HS [facility] Ondansetron HCl 4 mg 09/29/25 01:34 Ondansetron Inj 4 Mg/2 Ml Vial IV PUSH Q4H PRN Nausea And Vomiting Pantoprazole Sodium 40 mg 09/29/25 09:00 Pantoprazole 40 Mg Tablet PO Q12HR [facility] Trazodone HCl 100 mg 09/29/25 01:31 Trazodone Hcl 50 Mg Tablet PO QHS PRN Sleep Vancomycin HCl 1 each 09/28/25 21:16 Vancomycin For Acute Kidney Injury IVPB PRN PRN Vancomycin Protocol Vitamin D 50 mcg 09/29/25 09:00 Cholecalciferol (Vitamin D3) 25 Mcg (1,000 Units) Tablet PO DAILY [facility] Radiology Results: ITS Impressions Elbow X-Ray 09/28/25 17:58 Impression: No acute fracture or malalignment. Upper Extremity CT 09/29/25 07:46 IMPRESSION: Findings suspicious for septic arthritis or septic joint effusion with intra-articular cellulitis. No cortical erosion seen to confirm osteomyelitis. NOTE: Preliminary radiology report provided by [facility] physician/radiologist. Labs Labs: Laboratory Results - last 24 hr 09/28/25 09/28/25 09/29/25 17:53 20:54 05:41 WBC 10.3 H RBC 3.21 L Hgb 10.8 L Hct 31.4 L MCV 97.8 MCH 33.6 MCHC 34.4 RDW 11.7 Plt Count 252 D MPV 9.5 Immature Gran % (Auto) 1.0 H Neut % (Auto) 73.9 H Lymph % (Auto) 11.7 L [place] % (Auto) 12.1 H Eos % (Auto) 0.9 Baso % (Auto) 0.4 Lymph # (Auto) 1.20 [place] # (Auto) 1.2 H Eos # (Auto) 0.1 Baso # (Auto) 0.0 Abs Immat Gran (auto) 0.10 H Absolute Neuts (auto) 7.6 H Absolute Nucleated RBC 0.000 Nucleated RBC % 0.0 ESR > 140 H Sodium 133 L Potassium 3.8 Chloride 101 Carbon Dioxide 26 Anion Gap 6 BUN 31 H D Creatinine 1.91 H Estim Creat Clear Calc 37 Estimated GFR 36 L Glucose 210 H Hemoglobin A1c 5.6 Uric Acid 8.4 Calcium 7.8 L Phosphorus Magnesium Iron TIBC % Saturation Ferritin Total Bilirubin 0.5 AST 19 ALT 18 Alkaline Phosphatase 62 C-Reactive Protein 7.8 H Total Protein 6.2 L Albumin 3.3 L Vitamin B12 Procalcitonin Synovial Source Rt elbow syn fluid Synovial Color Yellow Synovial Appearance Cloudy A Synovial RBC Synovial Nuc Cells Synovial Neutrophils 95 H Synovial Lymphocytes 3 Synovial Monocytes 2 Synovial Crystals Rare cppd Synovial Glucose Cancelled Synovial Total Protein Cancelled 09/29/25 05:45 WBC 9.6 RBC 3.07 L Hgb 10.3 L Hct 30.5 L MCV 99.3 MCH 33.6 MCHC 33.8 RDW 11.8 Plt Count 217 MPV 10.1 Immature Gran % (Auto) 1.0 H Neut % (Auto) 75.2 H Lymph % (Auto) 11.0 L [place] % (Auto) 11.5 H Eos % (Auto) 0.9 Baso % (Auto) 0.4 Lymph # (Auto) 1.05 [place] # (Auto) 1.1 H Eos # (Auto) 0.1 Baso # (Auto) 0.0 Abs Immat Gran (auto) 0.10 H Absolute Neuts (auto) 7.2 H Absolute Nucleated RBC 0.000 Nucleated RBC % 0.0 ESR Sodium 134 L Potassium 3.4 Chloride 102 Carbon Dioxide 27 Anion Gap 5 BUN 26 H Creatinine 1.76 H Estim Creat Clear Calc 40 Estimated GFR 40 L Glucose 115 H Hemoglobin A1c Uric Acid Calcium 7.8 L Phosphorus 3.4 Magnesium 1.5 L Iron 22 L TIBC 183 L % Saturation 12 L Ferritin 156.00 Total Bilirubin 0.7 AST 24 ALT 13 Alkaline Phosphatase 67 C-Reactive Protein Total Protein 5.9 L Albumin 3.0 L Vitamin B12 236.0 L Procalcitonin 0.2 Synovial Source Synovial Color Synovial Appearance Synovial RBC Synovial Nuc Cells Synovial Neutrophils Synovial Lymphocytes Synovial Monocytes Synovial Crystals Synovial Glucose Synovial Total Protein Quality VTE Prophylaxis VTE prophylaxis: mechanical ordered Hospitalist MIPS Advance Care Plan I have confirmed that the patient's Advanced Care Plan is present, code status is documented, or surrogate decision maker is listed in patient medical record.: Yes Medication Reconciliation I have utilized all available resources to obtain, update and review the patients current medications (includes all prescriptions, OTC, herbals, cannabis, and nutritional supplements).: Yes
[2025-09-29] MEDS: HYDROmorphone HCL INJ (*CRX) 1 MG/ML SYR 0.2 MG IV PUSH (09:22)
[2025-09-29] MEDS: DEXTROSE 5%/0.9% SOD CHL 1,000 ML 80 ML IV CONT (09:22)
--- NOTE | 2025-09-29 10:44 | PM.CNCAR ---
Assessment and Plan Assessment and plan (1) Coronary artery disease: Code(s): I25.10 - Atherosclerotic heart disease of samish coronary artery without angina pectoris Status: Acute Assessment and Plan: Stable. (2) Nicotine abuse: Code(s): Z72.0 - Tobacco use Status: Acute Assessment and Plan: Counseled regarding smoking cessation. (3) Dyslipidemia: Code(s): E78.5 - Hyperlipidemia, unspecified Status: Acute Assessment and Plan: On Atorvastatin. (4) Preop cardiovascular exam: Code(s): Z01.810 - Encounter for preprocedural cardiovascular examination Status: Resolved Assessment and Plan: Asymptomatic from cardiology standpoint. May proceed to noncardiac surgery which is right elbow debridement without further cardiac workup. Monitor Kidney function and agree with holding Lisinopril and HCTZ. No further cardiac workup is needed. History of Present Illness History of Present Illness Consult date/time: 09/29/25 10:44 Reason For Visit: septic elbow Narrative: 60 yr old man who is my regular cardiology patient and a patient of Dr. Yang presents to ER with septic elbow. He has a history of DM, hypertension, dyslipidemia, AAA, CAD and PA. Consultation is for preop risk stratification for elbow surgery. Had right elbow drained but needs further surgery for it. Has some elbow pain. Reports he can walk at least 1 block but has not had to walk more. He smokes 1-1.5 ppd. Denies chest pain, orthopnea, PND, edema, dizziness, palpitations. Cardiovascular Procedures Regrader:: 09/18/16 cardiac cath at [facility]: RCA 100% occlusion, LAD 30-40%, LCx 40-50%; PCI with CHIQUI to RCA. Electrophysiology:: 11/07/22 EKG: sinus rhythm, minimal Q waves in inferior leads. 11/08/21 EKG: Sinus rhythm, LVH with ST-T change. Stress Tests:: 11/26/22 Lexiscan myoview: Negative. 03/04/24 MRI abd: 3.3 cm fusiform infrarenal abd aortic ectasia. 03/04/23 CT abd: Stable 3.4 cm fusiform infrarenal AAA. 11/03/22 US aorta: 3.8 cm fusiform infrarenal AAA. 11/22/21 US aorta: 4.0 cm AAA. 03/05/21 U/S abd: 3.2 cm fusiform infrarenal AAA. Review of Systems Review of Systems: All systems reviewed & are unremarkable except as noted in HPI and below Constitutional: Constitutional: Reports as per HPI, Denies chills and Denies fever(s) Cardiovascular: Cardiovascular: Reports as per HPI, Denies chest pain and Denies irregular heart rhythm Respiratory: Respiratory: Reports as per HPI and Denies dyspnea Gastrointestinal: Gastrointestinal: Reports as per HPI and Denies abdominal pain Genitourinary: Genitourinary: Reports as per HPI and Denies dysuria Musculoskeletal: Musculoskeletal: Reports as per HPI and Reports arthralgias Neurologic: Reports as per HPI, Denies dizziness and Denies syncope [facility] Past Medical History Medical History 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 chronic kidney disease (~2018) Joint pain Paresthesia Chronic pain Rotator cuff tear, right AAA (abdominal aortic aneurysm) without rupture CAD in sam[place] artery Chronic pain of both knees Dyslipidemia Essential (primary) hypertension History of diverticulitis Hypothyroidism, unspecified Vitamin D deficiency Surgical History Surgical History S/P right rotator cuff repair 12/10/2022 History of coronary artery stent placement x2 Family History Family History Mother Patient's mother is Father Patient's father is Sibling Diabetes mellitus Other Hypertension Social History Social History Social History: The patient is and lives with his . Lori savage had 1 child who . He works for [employer]. He continues to smoke. Code status full code Smoking packs per day: 1.5 Smoking cigarettes per day: 30.0 Years smoked: 40 Smoking pack-years: 60.00 Smoking status: Current every day smoker Tobacco type: cigarettes Second hand tobacco smoke exposure: No Alcohol intake: former Drinks per week: 30 Alcohol use details: quit jul 2022 Substance use: former Substance use type: marijuana Lack of Transportation: No Lack of Food: Never True Current Housing: I Have Housing Concerned About Future Housing: No Difficulty Paying Gas/Electric Bills: No Difficulty Paying for Meds: No Currently Unemployed: No Education: High School Diploma/GED Difficulty w/ Childcare or Family Care: No Living arrangements: with family Occupation/Education: occupation Gender identity (if verbalized by the patient): Male Spiritual care concerns: No Meds Home Medications and Allergies Home Medications ?Medication ?Instructions ?Recorded ?Confirmed ?Type aspirin 81 mg tablet,delayed 81 mg PO DAILY 05/17/20 09/29/25 History release (Adult Low Dose Aspirin) cholecalciferol (vitamin D3) 50 50 mcg PO DAILY 03/04/21 09/29/25 History mcg (2,000 unit) capsule melatonin 5 mg tablet 5 mg PO HS #30 tabs 03/06/23 09/29/25 Rx nitroglycerin 0.4 mg sublingual 0.4 mg sublingual Q5M PRN chest 02/28/25 09/29/25 Rx tablet pain #30 tabs atorvastatin 10 mg tablet (Lipitor) 10 mg PO DAILY #90 tabs 03/03/25 09/29/25 Rx pantoprazole 40 mg tablet,delayed 40 mg PO BID #60 tabs 03/28/25 09/29/25 Rx release metformin 1,000 mg tablet 1,000 mg PO BID #180 tabs 04/19/25 09/29/25 Rx albuterol sulfate 90 mcg/actuation See Rx Instructions .Route 06/22/25 09/29/25 Rx aerosol inhaler .COMPLEX #6.7 grams ondansetron 4 mg disintegrating 4 mg PO Q8H PRN nausea and 07/14/25 09/29/25 Rx tablet vomiting #30 tabs levothyroxine 25 mcg tablet 25 mcg PO DAILY #90 tabs 07/25/25 09/29/25 Rx lisinopril 20 mg tablet 20 mg PO BID #180 tabs 08/09/25 09/29/25 Rx amlodipine 5 mg tablet 5 mg PO DAILY #90 tabs 09/12/25 09/29/25 Rx carvedilol 12.5 mg tablet 12.5 mg PO Q12H #180 tabs 09/12/25 09/29/25 Rx hydrochlorothiazide 25 mg tablet 25 mg PO DAILY #90 tabs 09/12/25 09/29/25 Rx trazodone 50 mg tablet See Rx Instructions PO QHS PRN 09/12/25 09/29/25 Rx sleep #60 tabs hydrocodone 5 mg-acetaminophen 325 1 tablet PO Q8H PRN pain #20 tabs 09/19/25 09/29/25 Rx mg tablet Allergies Allergy/AdvReac Type Severity Reaction Status Date / Time amoxicillin AdvReac Intermediate Nausea and Verified 09/29/25 01:38 Vomiting sulfamethoxazole (From AdvReac Nausea and Verified 09/29/25 01:38 Bactrim) Vomiting trimethoprim (From Bactrim) AdvReac Nausea and Verified 09/29/25 01:38 Vomiting Vital Signs Vital Signs - 24 hr 09/28/25 17:40 09/28/25 19:35 09/28/25 22:13 Temperature 98.9 F Pulse Rate 70 65 69 Respiratory Rate 16 19 18 Blood Pressure 138/63 179/71 H 157/77 H Pulse Oximetry 96 98 98 Oxygen Delivery Room Air 09/29/25 00:02 09/29/25 01:49 09/29/25 05:09 Temperature 98.2 F Pulse Rate 64 64 68 Respiratory Rate 20 20 16 Blood Pressure 165/78 H 179/62 H Pulse Oximetry 99 99 98 Oxygen Delivery Room Air 09/29/25 09:21 09/29/25 09:25 Temperature Pulse Rate 69 Respiratory Rate Blood Pressure Pulse Oximetry 96 Oxygen Delivery Room Air Exam Const: General: cooperative, healthy appearing and comfortable Resp: Auscultation: clear to auscultation bilaterally, no crackles, no rales, no rhonchi and no wheezes Cardio: Rate: regular rate Rhythm: regular rhythm Heart sounds: no murmurs Peripheral pulses: dorsalis pedis present GI: GI Palp: No abdominal tenderness and Yes Soft to palpation Neuro: General: oriented to person, oriented to place and oriented to time Extrem: Right lower extremity: no edema Left lower extremity: no edema Results Labs and Meds 09/29/25 05:45 09/29/25 05:45 Lab results: Cardiac Enzymes 09/28/25 09/29/25 Range/Units 17:53 05:45 AST 19 24 (17-59) U/L CBC 09/28/25 09/29/25 Range/Units 17:53 05:45 WBC 10.3 H 9.6 (4.5-10.0) K/mm3 RBC 3.21 L 3.07 L (4.6-6.20) M/mm3 Hgb 10.8 L 10.3 L (14.0-18.0) g/dL Hct 31.4 L 30.5 L (42.0-52.0) % Plt Count 252 D 217 (150-375) k/mm3 Lymph # (Auto) 1.20 1.05 (0.9-3.2) K/mm3 Perkins # (Auto) 1.2 H 1.1 H (0.1-0.6) K/mm3 Eos # (Auto) 0.1 0.1 (0-0.3) K/mm3 Baso # (Auto) 0.0 0.0 (0.0-0.1) K/mm3 Comprehensive Metabolic Panel 09/28/25 09/29/25 Range/Units 17:53 05:45 Sodium 133 L 134 L (137-145) mmol/L Potassium 3.8 3.4 (3.4-5.0) mmol/L Chloride 101 102 (98-107) mmol/L Carbon Dioxide 26 27 (22-30) mmol/L BUN 31 H D 26 H (9-20) mg/dL Creatinine 1.91 H 1.76 H (0.7-1.3) mg/dL Glucose 210 H 115 H (65-110) mg/dL Calcium 7.8 L 7.8 L (8.4-10.2) mg/dL AST 19 24 (17-59) U/L ALT 18 13 (6-50) U/L Alkaline Phosphatase 62 67 (38-126) U/L Total Protein 6.2 L 5.9 L (6.3-8.2) g/dL Albumin 3.3 L 3.0 L (3.5-5.1) g/dL Intake and Output 09/28/25 09/29/25 09/29/25 23:59 07:59 15:59 Intake Total 50 Balance 50 Intake: IV 50 Cefepime 2 gm In Sodium 50 Chloride 0.9% IV 50 ml @ 100 mls/hr IVPB ONCE STA Rx#: [id number] Other: # Unmeasured Voids 2 Number of Bowel Movements Today 0 Patient Weight 09/29/25 23:59 Weight 83.9 kg
[2025-09-29] MEDS: CEFEPIME 2 GM in SODIUM CHLORIDE 0.9% IV 50 ML 100 ML IVPB ×2 (10:57→21:06)
--- NOTE | 2025-09-29 12:20 | PM.CNOR ---
Assessment and Plan Assessment and plan (1) Arthritis, septic, elbow: Qualifiers: Laterality: right Septic arthritis organism: due to unspecified organism Qualified Code(s): M00.9 - Pyogenic arthritis, unspecified Code(s): M00.9 - Pyogenic arthritis, unspecified Status: Acute Assessment and Plan: Patient is a 60-year-old gentleman who came in through the emergency room last evening complaining of severe pain in the right elbow and inability to move it. He started having right elbow pain approximately 7 days ago 3 days after he had a shingles immunization shot in the right shoulder 10 days ago. After the shingles injection he had generalized malaise and myalgias for 1 day. He presented to his primary care physician on 09/19/2025. X-rays were centrally unremarkable of the right elbow at that time. He was sent for blood work and had upper normal range uric acid 8.4, marked elevation of C-reactive protein at 39, sedimentation rate of 31, normal white count 8.3. He was started on a Medrol Dosepak which initially seemed to help but over the last few days his pain became excruciating. He was referred to another orthopedic surgeon but prior to being seen he could not tolerate the pain and presented the emergency room last evening. Repeat laboratory analysis showed C-reactive protein down to 7.8 but sedimentation rate greater than 140. His white count was 10.3 with left shift increased absolute neutrophils and presence of immature granulocytes and x-rays demonstrated a prominent effusion in the right elbow and he had aspiration of the elbow by the emergency room position. Unfortunately the cell count was unable to be obtained as the fluid which had been sent up in a syringe was clotted but the differential demonstrated 95% neutrophils and Gram stain showed rare Gram-positive cocci. Aerobic and anaerobic cultures are pending and blood cultures are pending. He was started on vancomycin and cefepime. The synovial fluid aspirate also did show rare CPPD crystals. His past history is significant for borderline diabetes. Hemoglobin A1c was only 5.6 this morning. He has chronic anemia hemoglobin 10.3 and chronic kidney disease. Last night his creatinine was 1.9. Today it is a little better at 1.76. Estimated GFR is 40. He is noted to have a very low iron level and low iron saturation. Ferritin is normal which could be due to inflammation. Vitamin B12 was slightly low. Albumin is 3.0 total protein 5.9 suggesting possible chronic malnutrition. Patient does take pantoprazole 40 mg b.i.d.. Patient does not drink alcohol but did in the past. He does continue to smoke 1.5 packs of cigarettes per day. He underwent a coronary artery stent placement between 5 in [address] Bonilla was asked to see him in consultation for a cardiac risk assessment and felt that he was stable to proceed with surgical intervention from a cardiac standpoint without further testing at this point. Patient is been afebrile during the hospitalization. Physical examination On exam today he was alert and oriented pleasant gentleman in no acute distress. He has mild swelling about the elbow but pronounced pain at extremes of motion flexion to 90 extension to 45?. He had near full pronation supination. He denied any shoulder pain or hand or wrist pain. He had intact sensation in the right hand and upper extremity and intact motor function in the right hand. 2+ radial artery pulse was palpable. There was diffuse tenderness about the elbow anteriorly posterolaterally and posteromedially.. There were no areas of skin breakdown about the elbow no swelling in the olecranon bursa CT scan with contrast of right elbow showed large effusion. No bony erosions. Increased synovial enhancement consistent with septic arthritis. Assessment plan It is probable this patient has septic arthritis of the right elbow. He has some degree of immune compromised due to his stage 3 kidney disease and chronic heavy smoking and low protein study suggest he may have some degree of malnutrition. His BMI is 27.3. Differential diagnosis does include nonseptic inflammatory arthritis such as pseudogout or gout. Given his elevated absolute neutrophils and presence of immature neutrophils, the extremely elevated sedimentation rate greater than 140 and markedly elevated C-reactive protein 8 or 9 days ago, 95% neutrophils on the synovial fluid and positive Gram stain for rare Gram-positive cocci, the data suggest high likelihood of septic arthritis. Cultures may take 2 or 3 days to give results. Given this clinical picture, surgical joint debridement offers the best chance of infection control and may potentially reduce rate of articular surface damage from sepsis. For these reasons I have recommended debridement of the joint on an urgent basis. I have discussed risks of surgery with him in detail and he would like to proceed as discussed. 65 minutes were spent total care this patient today. History of Present Illness HPI Consult date: 09/29/25 Chief complaint: septic elbow PMFSH Past Medical History Medical History 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 chronic kidney disease (~2018) Joint pain Paresthesia Chronic pain Rotator cuff tear, right AAA (abdominal aortic aneurysm) without rupture CAD in [place] artery Chronic pain of both knees Dyslipidemia Essential (primary) hypertension History of diverticulitis Hypothyroidism, unspecified Vitamin D deficiency Surgical History Surgical History S/P right rotator cuff repair 12/10/2022 History of coronary artery stent placement x2 Family History Family History Mother Patient's mother is Father Patient's father is Sibling Diabetes mellitus Other Hypertension Social History Social History Social History: The patient is and lives with his . Lori savage had 1 child who . He works for [employer]. He continues to smoke. Code status full code Smoking packs per day: 1.5 Smoking cigarettes per day: 30.0 Years smoked: 40 Smoking pack-years: 60.00 Smoking status: Current every day smoker Tobacco type: cigarettes Second hand tobacco smoke exposure: No Alcohol intake: former Drinks per week: 30 Alcohol use details: quit jul 2022 Substance use: former Substance use type: marijuana Lack of Transportation: No Lack of Food: Never True Current Housing: I Have Housing Concerned About Future Housing: No Difficulty Paying Gas/Electric Bills: No Difficulty Paying for Meds: No Currently Unemployed: No Education: High School Diploma/GED Difficulty w/ Childcare or Family Care: No Living arrangements: with family Occupation/Education: occupation Gender identity (if verbalized by the patient): Male Spiritual care concerns: No Meds Home Medications and Allergies Home Medications ?Medication ?Instructions ?Recorded ?Confirmed ?Type aspirin 81 mg tablet,delayed 81 mg PO DAILY 05/17/20 09/29/25 History release (Adult Low Dose Aspirin) cholecalciferol (vitamin D3) 50 50 mcg PO DAILY 03/04/21 09/29/25 History mcg (2,000 unit) capsule melatonin 5 mg tablet 5 mg PO HS #30 tabs 03/06/23 09/29/25 Rx nitroglycerin 0.4 mg sublingual 0.4 mg sublingual Q5M PRN chest 02/28/25 09/29/25 Rx tablet pain #30 tabs atorvastatin 10 mg tablet (Lipitor) 10 mg PO DAILY #90 tabs 03/03/25 09/29/25 Rx pantoprazole 40 mg tablet,delayed 40 mg PO BID #60 tabs 03/28/25 09/29/25 Rx release metformin 1,000 mg tablet 1,000 mg PO BID #180 tabs 04/19/25 09/29/25 Rx albuterol sulfate 90 mcg/actuation See Rx Instructions .Route 06/22/25 09/29/25 Rx aerosol inhaler .COMPLEX #6.7 grams ondansetron 4 mg disintegrating 4 mg PO Q8H PRN nausea and 07/14/25 09/29/25 Rx tablet vomiting #30 tabs levothyroxine 25 mcg tablet 25 mcg PO DAILY #90 tabs 07/25/25 09/29/25 Rx lisinopril 20 mg tablet 20 mg PO BID #180 tabs 08/09/25 09/29/25 Rx amlodipine 5 mg tablet 5 mg PO DAILY #90 tabs 09/12/25 09/29/25 Rx carvedilol 12.5 mg tablet 12.5 mg PO Q12H #180 tabs 09/12/25 09/29/25 Rx hydrochlorothiazide 25 mg tablet 25 mg PO DAILY #90 tabs 09/12/25 09/29/25 Rx trazodone 50 mg tablet See Rx Instructions PO QHS PRN 09/12/25 09/29/25 Rx sleep #60 tabs hydrocodone 5 mg-acetaminophen 325 1 tablet PO Q8H PRN pain #20 tabs 09/19/25 09/29/25 Rx mg tablet Allergies Allergy/AdvReac Type Severity Reaction Status Date / Time amoxicillin AdvReac Intermediate Nausea and Verified 09/29/25 01:38 Vomiting sulfamethoxazole (From AdvReac Nausea and Verified 09/29/25 01:38 Bactrim) Vomiting trimethoprim (From Bactrim) AdvReac Nausea and Verified 09/29/25 01:38 Vomiting Vital Signs Vital Signs - 24 hr 09/28/25 17:40 09/28/25 19:35 09/28/25 22:13 Temperature 37.2 C Pulse Rate 70 65 69 Respiratory Rate 16 19 18 Blood Pressure 138/63 179/71 H 157/77 H Pulse Oximetry 96 98 98 Oxygen Delivery Room Air 09/29/25 00:02 09/29/25 01:49 09/29/25 05:09 Temperature 36.8 C Pulse Rate 64 64 68 Respiratory Rate 20 20 16 Blood Pressure 165/78 H 179/62 H Pulse Oximetry 99 99 98 Oxygen Delivery Room Air 09/29/25 09:21 09/29/25 09:25 Temperature Pulse Rate 69 Respiratory Rate Blood Pressure Pulse Oximetry 96 Oxygen Delivery Room Air Results Labs 09/29/25 05:45 09/29/25 05:45 Labs: Abnormal lab results 09/28/25 09/28/25 09/29/25 Range/Units 17:53 20:54 05:45 WBC 10.3 H (4.5-10.0) K/mm3 RBC 3.21 L 3.07 L (4.6-6.20) M/mm3 Hgb 10.8 L 10.3 L (14.0-18.0) g/dL Hct 31.4 L 30.5 L (42.0-52.0) % Immature Gran % (Auto) 1.0 H 1.0 H (0-0.5) % Neut % (Auto) 73.9 H 75.2 H (45.5-73.1) % Lymph % (Auto) 11.7 L 11.0 L (18.3-44.2) % [place] % (Auto) 12.1 H 11.5 H (2.6-8.5) % [place] # (Auto) 1.2 H 1.1 H (0.1-0.6) K/mm3 Abs Immat Gran (auto) 0.10 H 0.10 H (0.00-0.031) K/mm3 Absolute Neuts (auto) 7.6 H 7.2 H (1.3-6.7) K/mm3 ESR > 140 H (0-20) mm/hr Sodium 133 L 134 L (137-145) mmol/L BUN 31 H D 26 H (9-20) mg/dL Creatinine 1.91 H 1.76 H (0.7-1.3) mg/dL Estimated GFR 36 L 40 L (59 - ) Glucose 210 H 115 H (65-110) mg/dL POC Capillary Glucose (65-105) mg/dl Calcium 7.8 L 7.8 L (8.4-10.2) mg/dL Magnesium 1.5 L (1.6-2.3) mg/dL Iron 22 L (49-181) ug/dL TIBC 183 L (265-497) ug/dL % Saturation 12 L (20-50) % C-Reactive Protein 7.8 H (<1.0) mg/dL Total Protein 6.2 L 5.9 L (6.3-8.2) g/dL Albumin 3.3 L 3.0 L (3.5-5.1) g/dL Vitamin B12 236.0 L (239-931) pg/mL Synovial Appearance Cloudy A (Clear) Synovial Neutrophils 95 H (0-25) % 09/29/25 09/29/25 Range/Units 08:55 11:24 WBC (4.5-10.0) K/mm3 RBC (4.6-6.20) M/mm3 Hgb (14.0-18.0) g/dL Hct (42.0-52.0) % Immature Gran % (Auto) (0-0.5) % Neut % (Auto) (45.5-73.1) % Lymph % (Auto) (18.3-44.2) % [place] % (Auto) (2.6-8.5) % [place] # (Auto) (0.1-0.6) K/mm3 Abs Immat Gran (auto) (0.00-0.031) K/mm3 Absolute Neuts (auto) (1.3-6.7) K/mm3 ESR (0-20) mm/hr Sodium (137-145) mmol/L BUN (9-20) mg/dL Creatinine (0.7-1.3) mg/dL Estimated GFR (59 - ) Glucose (65-110) mg/dL POC Capillary Glucose 129 H 125 H (65-105) mg/dl Calcium (8.4-10.2) mg/dL Magnesium (1.6-2.3) mg/dL Iron (49-181) ug/dL TIBC (265-497) ug/dL % Saturation (20-50) % C-Reactive Protein (<1.0) mg/dL Total Protein (6.3-8.2) g/dL Albumin (3.5-5.1) g/dL Vitamin B12 (239-931) pg/mL Synovial Appearance (Clear) Synovial Neutrophils (0-25) % H & H 09/28/25 09/29/25 Range/Units 17:53 05:45 Hgb 10.8 L 10.3 L (14.0-18.0) g/dL Hct 31.4 L 30.5 L (42.0-52.0) % All other labs normal.
[2025-09-29] MEDS: MAGNESIUM SULF 2 GM/WATER 50ML 2 GM/50 ML BAG IVPB (12:38)
[2025-09-29] MEDS: CYANOCOBALAMIN INJ 1,000 MCG/ML VIAL 1000 MCG IM (12:39)
[2025-09-29] MEDS: ONDANSETRON INJ 4 MG/2 ML VIAL IV PUSH (14:18)
--- NOTE | 2025-09-29 14:45 | SUR.PREOP ---
pt case was cx'ed per Dr. Barone. Took pt to ultrasound for a procedure over there. Pt and were then dropped off at ultrasound.
[2025-09-29 15:09] LABS: Glucose, Body Fluid 54 mg/dL (.)
[2025-09-29 16:36] LABS: Source Synovial Fluid RT Elbow Syn Fluid
[2025-09-29 16:37] LABS: Lymphocytes Synovial Fluid 3 %; Macrophages Synovial Fluid 1 %; Monocytes Synovial Fluid 1 %; Neutrophils Synovial Fluid 95 % (0-25); Nucleated Cell Synovial Fluid 10495 /uL (0-200)
[2025-09-29 16:38] LABS: Color Synovial Fluid Other (Colorless); RBC Synovial Fluid 30000 /uL (0-0)
--- NOTE | 2025-09-29 16:47 | WPDIDCN ---
Assessment and Plan Assessment and plan (1) Arthritis, septic, elbow: Qualifiers: Laterality: right Septic arthritis organism: due to unspecified organism Qualified Code(s): M00.9 - Pyogenic arthritis, unspecified Code(s): M00.9 - Pyogenic arthritis, unspecified Status: Acute Plan ASSESSMENT: 1. right elbow arthritis--probably with both pseudogout and septic joint; gram stain GPC 2. CKD 3. DM 4. HTN, HL, CAD, hypothyroid 5. smoker RECOMMENDAITONS: -can continue vanco and cefepime for now -f/u on synovial cxs and BCxs -to have drain placed by IR-->ortho following d/w pharmacy staff Exam done via telemedicine with the aid of a HIPPA protected audio/visual interface. Patient was at [facility] in [place], [place] while I was in my office in [place]. With patient consent. HPI Data of Consult Date/Time: 09/29/25 16:47 Requesting Physician: Gold Joe MD Primary Care Provider: Roshni Potter APRN Consult Narrative Reason for consult: right elbow septic joint Narrative: Tray Patel is a 60 year old male with pmhx/o CAD, DM, HTN, HL, CKD, hypothyroid, smoker, presented to ED with right elbow pain. Had it a few days back and improved with steroids but now back. Synovial fluid gram stain with GPC. Also with CPPD cyrstals. Plan is for IR guided drain today. On vanco and cefepime. Being followed by ortho. [facility] Past Medical History Medical History 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 chronic kidney disease (~2018) Joint pain Paresthesia Chronic pain Rotator cuff tear, right AAA (abdominal aortic aneurysm) without rupture CAD in [place] artery Chronic pain of both knees Dyslipidemia Essential (primary) hypertension History of diverticulitis Hypothyroidism, unspecified Vitamin D deficiency Surgical History Surgical History S/P right rotator cuff repair 12/10/2022 History of coronary artery stent placement x2 Family History Family History Mother Patient's mother is Father Patient's father is Sibling Diabetes mellitus Other Hypertension Social History Social History Social History: The patient is and lives with his . Lori savage had 1 child who . He works for [employer]. He continues to smoke. Code status full code Smoking packs per day: 1.5 Smoking cigarettes per day: 30.0 Years smoked: 40 Smoking pack-years: 60.00 Smoking status: Current every day smoker Tobacco type: cigarettes Second hand tobacco smoke exposure: No Alcohol intake: former Drinks per week: 30 Alcohol use details: quit jul 2022 Substance use: former Substance use type: marijuana Lack of Transportation: No Lack of Food: Never True Current Housing: I Have Housing Concerned About Future Housing: No Difficulty Paying Gas/Electric Bills: No Difficulty Paying for Meds: No Currently Unemployed: No Education: High School Diploma/GED Difficulty w/ Childcare or Family Care: No Living arrangements: with family Occupation/Education: occupation Gender identity (if verbalized by the patient): Male Spiritual care concerns: No Meds Home Medications and Allergies Home Medications ?Medication ?Instructions ?Recorded ?Confirmed ?Type aspirin 81 mg tablet,delayed 81 mg PO DAILY 05/17/20 09/29/25 History release (Adult Low Dose Aspirin) cholecalciferol (vitamin D3) 50 50 mcg PO DAILY 03/04/21 09/29/25 History mcg (2,000 unit) capsule melatonin 5 mg tablet 5 mg PO HS #30 tabs 03/06/23 09/29/25 Rx nitroglycerin 0.4 mg sublingual 0.4 mg sublingual Q5M PRN chest 02/28/25 09/29/25 Rx tablet pain #30 tabs atorvastatin 10 mg tablet (Lipitor) 10 mg PO DAILY #90 tabs 03/03/25 09/29/25 Rx pantoprazole 40 mg tablet,delayed 40 mg PO BID #60 tabs 03/28/25 09/29/25 Rx release metformin 1,000 mg tablet 1,000 mg PO BID #180 tabs 04/19/25 09/29/25 Rx albuterol sulfate 90 mcg/actuation See Rx Instructions .Route 06/22/25 09/29/25 Rx aerosol inhaler .COMPLEX #6.7 grams ondansetron 4 mg disintegrating 4 mg PO Q8H PRN nausea and 07/14/25 09/29/25 Rx tablet vomiting #30 tabs levothyroxine 25 mcg tablet 25 mcg PO DAILY #90 tabs 07/25/25 09/29/25 Rx lisinopril 20 mg tablet 20 mg PO BID #180 tabs 08/09/25 09/29/25 Rx amlodipine 5 mg tablet 5 mg PO DAILY #90 tabs 09/12/25 09/29/25 Rx carvedilol 12.5 mg tablet 12.5 mg PO Q12H #180 tabs 09/12/25 09/29/25 Rx hydrochlorothiazide 25 mg tablet 25 mg PO DAILY #90 tabs 09/12/25 09/29/25 Rx trazodone 50 mg tablet See Rx Instructions PO QHS PRN 09/12/25 09/29/25 Rx sleep #60 tabs hydrocodone 5 mg-acetaminophen 325 1 tablet PO Q8H PRN pain #20 tabs 09/19/25 09/29/25 Rx mg tablet Allergies Allergy/AdvReac Type Severity Reaction Status Date / Time amoxicillin AdvReac Intermediate Nausea and Verified 09/29/25 14:28 Vomiting sulfamethoxazole (From AdvReac Nausea and Verified 09/29/25 14:28 Bactrim) Vomiting trimethoprim (From Bactrim) AdvReac Nausea and Verified 09/29/25 14:28 Vomiting Vital Signs Vital Signs - 24 hr 09/28/25 17:40 09/28/25 19:35 09/28/25 22:13 Temperature 98.9 F Pulse Rate 70 65 69 Respiratory Rate 16 19 18 Blood Pressure 138/63 179/71 H 157/77 H Pulse Oximetry 96 98 98 Oxygen Delivery Room Air 09/29/25 00:02 09/29/25 01:49 09/29/25 05:09 Temperature 98.2 F Pulse Rate 64 64 68 Respiratory Rate 20 20 16 Blood Pressure 165/78 H 179/62 H Pulse Oximetry 99 99 98 Oxygen Delivery Room Air 09/29/25 09:21 09/29/25 09:25 09/29/25 14:00 Temperature 98.5 F Pulse Rate 69 66 Respiratory Rate 14 Blood Pressure 178/74 H Pulse Oximetry 96 94 Oxygen Delivery Room Air 09/29/25 14:11 Temperature 99.6 F Pulse Rate 65 Respiratory Rate 16 Blood Pressure 193/73 H Pulse Oximetry 98 Oxygen Delivery Room Air Exam Narrative: NAD, non-toxic, on room air in radiology Results Labs 09/29/25 05:45 09/29/25 05:45 Labs: Short CBC 09/28/25 09/29/25 Range/Units 17:53 05:45 WBC 10.3 H 9.6 (4.5-10.0) K/mm3 Hgb 10.8 L 10.3 L (14.0-18.0) g/dL Hct 31.4 L 30.5 L (42.0-52.0) % Plt Count 252 D 217 (150-375) k/mm3 BMP 09/28/25 09/29/25 17:53 05:45 Sodium 133 L 134 L Potassium 3.8 3.4 Chloride 101 102 Carbon Dioxide 26 27 BUN 31 H D 26 H Creatinine 1.91 H 1.76 H Glucose 210 H 115 H Calcium 7.8 L 7.8 L Liver Function 09/28/25 09/29/25 Range/Units 17:53 05:45 Total Bilirubin 0.5 0.7 (0.2-1.3) mg/dL AST 19 24 (17-59) U/L ALT 18 13 (6-50) U/L Alkaline Phosphatase 62 67 (38-126) U/L Albumin 3.3 L 3.0 L (3.5-5.1) g/dL
[2025-09-29] MEDS: ACETAMINOPHEN 500 MG TABLET PO (17:46)
[2025-09-29] MEDS: POTASSIUM CHLORIDE 20 MEQ ER TABLET PO (18:30)
[2025-09-29] MEDS: PANTOPRAZOLE 40 MG TABLET PO (20:31)
[2025-09-29] MEDS: MELATONIN 5 MG TABLET PO (20:32)
[2025-09-29] MEDS: INSULIN ASPART (*BKC) 100 UNITS/ML SUB-Q (20:52)
[2025-09-29] MEDS: VANCOMYCIN 1,250 MG/NS 250 ML 1,250 MG/250 ML BAG 166.67 MG IVPB (22:20)
[2025-09-30] VITALS (8 sets, daily range): BP systolic 139–179; BP diastolic 60–70; PULSE 62–88; RESP 17–19; TEMP 36.5–36.7; O2SAT 96–98
[2025-09-30] MEDS: HYDROmorphone HCL INJ (*CRX) 1 MG/ML SYR 0.2 MG IV PUSH (01:12)
[2025-09-30] MEDS: HYDROcodone/acetaminophen (*CRX) 5-325 MG TABLET 1 TAB PO (05:37)
[2025-09-30] MEDS: LEVOTHYROXINE SODIUM 25 MCG TABLET PO (05:38)
[2025-09-30 06:36] LABS: Hematocrit 29.8 % (42.0-52.0); Hemoglobin 10.0 g/dL (14.0-18.0); Immature Granulocyte Percent A 0.6 % (0-0.5); Lymphocytes Absolute Auto 0.79 K/mm3 (0.9-3.2); Mean Corpuscular HGB Conc 33.6 g/dl (32-36); Mean Corpuscular Hemoglobin 33.6 pg (26-34); Mean Corpuscular Volume 100.0 fl (80-100); Nucleated Red Blood Cells Absolute Auto 0.000 K/mm3 (0.0-0.012); Nucleated Red Blood Cells Perc 0.0 % (0.0-0.2); Platelet Count Result 216 k/mm3 (150-375); Red Blood Count 2.98 M/mm3 (4.6-6.20); White Blood Count 8.1 K/mm3 (4.5-10.0)
[2025-09-30 06:55] LABS: Alanine Aminotransferase 14 U/L (6-50); Albumin Level 2.9 g/dL (3.5-5.1); Alkaline Phosphatase 69 U/L (38-126); Anion Gap 4 mmol/L (4-12); Aspartate Amino Transferase 20 U/L (17-59); Bilirubin,Total 0.6 mg/dL (0.2-1.3); Blood Urea Nitrogen 26 mg/dL (9-20); Calcium 7.8 mg/dL (8.4-10.2); Carbon Dioxide 24 mmol/L (22-30); Chloride 104 mmol/L (98-107); Estimated CRCL calculation 40 ml/min; Estimated Glomerular Filt Rate 39; Glucose 150 mg/dL (65-110); Magnesium 2.0 mg/dL (1.6-2.3); Potassium 3.6 mmol/L (3.4-5.0); Sodium 132 mmol/L (137-145); Total Protein 5.8 g/dL (6.3-8.2)
[2025-09-30 07:13] LABS: Procalcitonin 0.2 ng/mL
[2025-09-30] MEDS: CHOLECALCIFEROL (VITAMIN D3) 25 MCG (1,000 UNITS) TABLET 50 MCG PO (10:05)
[2025-09-30] MEDS: ATORVASTATIN 10 MG TABLET PO (10:05)
[2025-09-30] MEDS: PANTOPRAZOLE 40 MG TABLET PO ×2 (10:05→21:45)
[2025-09-30] MEDS: ACETAMINOPHEN 500 MG TABLET PO ×3 (10:05→17:56)
[2025-09-30] MEDS: CYANOCOBALAMIN 1,000 MCG TABLET 1000 MCG PO (10:05)
--- NOTE | 2025-09-30 10:05 | PM.IMPN ---
Progress Note: A&P Assessment and Plan (1) Arthritis, septic, elbow: Qualifiers: Laterality: right Septic arthritis organism: due to unspecified organism Qualified Code(s): M00.9 - Pyogenic arthritis, unspecified Code(s): M00.9 - Pyogenic arthritis, unspecified Status: Acute Assessment and Plan: Right elbow effusion worsening over 2 weeks CPPD crystals noted Gram positive cocci and many WBCs on Gram Stain of aspirate in ER--follow cultures ID consulted, appreciate recommendations Vancomycin and cefepime started in ER, both renally dosed due to CHITRA, continuing Orthopedic surgery consulted, Dr. Barone evaluated today. IR drain placed, discussing transfer to [place] NPO on admission--now on a carb consistent diet (2) Acute kidney injury superimposed on CKD: Code(s): N17.9 - Acute kidney failure, unspecified; N18.9 - Chronic kidney disease, unspecified Status: Acute Assessment and Plan: History of Stage 3 CKD CHITRA noted with Cr 1.91 and eGFR 36, Creatinine improved 1.79 2 liters IV fluids given in ER and IV fluids while NPO before surgery ordered Avoid nephrotoxins Follow BMP May need to adjust antibiotics based on renal function response Hold HCTZ, metformin and lisinopril (3) 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 chronic kidney disease: Onset Date: ~2017 Qualifiers: Diabetes mellitus custodial insulin use: without remote computer terminal operator use Chronic kidney disease stage 3 subtype: stage 3a (GFR 45-59) Qualified Code(s): E11.22 - Type 2 diabetes mellitus with diabetic chronic kidney disease; N18.31 - Chronic kidney disease, stage 3a Code(s): E11.22 - Type 2 diabetes mellitus with diabetic chronic kidney disease; N18.30 - Chronic kidney disease, stage 3 unspecified Status: Acute Assessment and Plan: Hold metformin due to renal function A1c 5.7 in August 2025 Check accuchecks ACHS --Low dose Sliding scale since off metformin (4) Essential (primary) hypertension: Code(s): I10 - Essential (primary) hypertension Status: Acute Assessment and Plan: Home meds: amlodipine and carvedilol, hold HCTZ and lisinopril due to CHITRA on CKD Use alternate blood pressure management if renal function does not improve after fluids Increase hydralazine to 25mg TID<QID Increase amlodipine from 5mg<7.5mg Continue Carvedilol 12.5mg BID (5) COPD (chronic obstructive pulmonary disease): Code(s): J44.9 - Chronic obstructive pulmonary disease, unspecified Status: Acute Assessment and Plan: Stable, continue home medications Time Spent With Patient Time: 42 minutes Subjective Date/time seen: 09/30/25 10:05 Interval history: Blood pressure above goal but having pain overnight. Report neck pain was worse overnight and improving. Declined a lidocaine patch. Trial of flexeril Cultures no growth. Likely inflammatory per ortho, started steroids Review of Systems Review of Systems: All systems reviewed & are unremarkable except as noted in HPI and below Exam Narrative: GENERAL: Well-appearing, well-nourished, and in no acute distress. HEAD: Normocephalic, atraumatic. ENT:? Mucous membranes moist. CHEST: Clear to auscultation.? No respiratory distress. HEART: Regular rate and rhythm. ? Normal peripheral pulses. ABDOMEN: Soft, nontender, nondistended. EXTREMITIES: Right elbow with warmth and edema decreased range of motion and site of recent drainage, drain in place Muscle tightness left upper back SKIN: Warm dry normal color NEURO: Alert and oriented x3. PSYCH: Normal mood and affect Objective Data Vital Signs Vital Signs: Vital Signs - 24 hr 09/29/25 14:00 09/29/25 14:11 09/29/25 17:30 Temperature 98.5 F 99.6 F Pulse Rate 66 65 67 Respiratory Rate 14 16 Blood Pressure 178/74 H 193/73 H 175/72 H Pulse Oximetry 94 98 94 Oxygen Delivery Room Air 09/29/25 20:00 09/29/25 21:49 09/30/25 05:57 Temperature 98.6 F 98.0 F Pulse Rate 65 65 65 Respiratory Rate 17 17 19 Blood Pressure 155/66 H 179/70 H Pulse Oximetry 96 96 98 Oxygen Delivery Room Air 09/30/25 10:00 Temperature Pulse Rate 62 Respiratory Rate Blood Pressure 159/67 H Pulse Oximetry Oxygen Delivery Intake/Output Intake/Output: Intake & Output 09/27/25 09/28/25 09/29/25 09/30/25 23:59 23:59 23:59 23:59 Intake Total 50 590 744 Output Total 6 Balance 50 584 744 Meds/Results Medications: Active Medications Generic Name Dose Route Start Last Admin Trade Name Freq PRN Reason Stop Dose Admin Acetaminophen 500 mg 09/29/25 13:00 09/29/25 17:46 Acetaminophen 500 Mg Tablet PO 500 mg TID [facility] Administration Hydrocodone Bitart/Acetaminophen 1 tab 09/29/25 09:11 09/30/25 05:37 Hydrocodone/Acetaminophen (*Crx) 5-325 Mg Tablet PO 1 tab Q4H PRN Administration Pain Albuterol 1 puff 09/29/25 01:31 Albuterol Sulfate (*Sp) Aerosol 1 Puff INHALATION Q4HR PRN shortness of breath or Wheezing Amlodipine Besylate 7.5 mg 09/30/25 09:00 Amlodipine Besylate 2.5 Mg Tablet PO DAILY [facility] Atorvastatin Calcium 10 mg 09/29/25 09:00 09/29/25 09:32 Atorvastatin 10 Mg Tablet PO Not Given DAILY [facility] Carvedilol 12.5 mg 09/29/25 09:00 09/29/25 20:32 Carvedilol 12.5 Mg Tablet PO 12.5 mg Q12HR [facility] Administration Cyanocobalamin 1,000 mcg 09/30/25 09:00 Cyanocobalamin 1,000 Mcg Tablet PO QAM HA Dextrose 12.5 gm 09/29/25 02:43 Dextrose 50% 25 Gm/50 Ml Syringe IV PUSH PRN PRN Hypoglycemia Protocol Glucagon 1 mg 09/29/25 02:43 Glucagon For Inj 1 Mg Vial IM PRN PRN Hypoglycemia Protocol Glucose 15 gm 09/29/25 02:43 Glucose Oral Gel 15 Gm Of Glucse In 37.5 Gm Tube PO PRN PRN Hypoglycemia Protocol Hydralazine HCl 25 mg 09/29/25 21:00 09/29/25 20:32 Hydralazine Hcl 25 Mg Tablet PO 25 mg QID [facility] Administration Hydromorphone HCl 0.2 mg 09/29/25 09:07 09/30/25 01:12 Hydromorphone Hcl Inj (*Crx) 1 Mg/Ml Syr IV PUSH 0.2 mg Q3H PRN Administration Breakthrough Pain Cefepime HCl 2 gm/ Sodium 50 mls @ 100 mls/hr 09/29/25 10:00 09/29/25 21:36 Chloride IVPB Infused Q12H [facility] Infusion Dextrose 1,000 mls @ 100 mls/hr 09/29/25 02:43 Dextrose 5% 1,000 Ml IVPB PRN PRN Hypoglycemia Protocol Dextrose/Sodium Chloride 1,000 mls @ 80 mls/hr 09/29/25 08:15 09/29/25 09:22 Dextrose 5% Sodium Chloride 0.9% IV CONT 80 mls/hr .[id number] HA Administration Insulin Aspart 1 - 2 units 09/29/25 21:00 09/29/25 20:52 Insulin Aspart (*Bkc) 100 Units/Ml SUB-Q 1 units HS HA Administration Protocol Insulin Aspart 2 - 5 units 09/30/25 08:00 09/30/25 09:48 Insulin Aspart (*Bkc) 100 Units/Ml SUB-Q Not Given TIDWM HA Protocol Levothyroxine Sodium 25 mcg 09/29/25 06:30 09/30/25 05:38 Levothyroxine Sodium 25 Mcg Tablet PO 25 mcg DAILY@0630 HA Administration Melatonin 5 mg 09/29/25 02:00 09/29/25 20:32 Melatonin 5 Mg Tablet PO 5 mg HS HA Administration Ondansetron HCl 4 mg 09/29/25 01:34 09/29/25 14:18 Ondansetron Inj 4 Mg/2 Ml Vial IV PUSH 4 mg Q4H PRN Administration Nausea And Vomiting Pantoprazole Sodium 40 mg 09/29/25 09:00 09/29/25 20:31 Pantoprazole 40 Mg Tablet PO 40 mg Q12HR [facility] Administration Trazodone HCl 100 mg 09/29/25 01:31 09/29/25 20:31 Trazodone Hcl 50 Mg Tablet PO 100 mg QHS PRN Administration Sleep Vancomycin HCl 1 each 09/28/25 21:16 Vancomycin For Acute Kidney Injury IVPB PRN PRN Vancomycin Protocol Vitamin D 50 mcg 09/29/25 09:00 09/29/25 09:32 Cholecalciferol (Vitamin D3) 25 Mcg (1,000 Units) Tablet PO Not Given DAILY [facility] Radiology Results: ITS Impressions Elbow X-Ray 09/28/25 17:58 Impression: No acute fracture or malalignment. Upper Extremity CT 09/29/25 07:46 IMPRESSION: Findings suspicious for septic arthritis or septic joint effusion with intra-articular cellulitis. No cortical erosion seen to confirm osteomyelitis. NOTE: Preliminary radiology report provided by [facility] physician/radiologist. Drainage Catheter Insertion 09/29/25 15:49 IMPRESSION: 1. Successful ultrasound-guided drainage catheter placement into the posterior recess of the right elbow joint effusion. 2. 6 mL of [id number] fluid was aspirated and sent to the lab. Labs Labs: Laboratory Results - last 24 hr 09/28/25 09/29/25 09/29/25 20:54 11:24 14:48 WBC RBC Hgb Hct MCV MCH MCHC RDW Plt Count MPV Immature Gran % (Auto) Neut % (Auto) Lymph % (Auto) Phillips % (Auto) Eos % (Auto) Baso % (Auto) Lymph # (Auto) Phillips # (Auto) Eos # (Auto) Baso # (Auto) Abs Immat Gran (auto) Absolute Neuts (auto) Absolute Nucleated RBC Nucleated RBC % Sodium Potassium Chloride Carbon Dioxide Anion Gap BUN Creatinine Estim Creat Clear Calc Estimated GFR Glucose POC Capillary Glucose 125 H Calcium Phosphorus Magnesium Total Bilirubin AST ALT Alkaline Phosphatase Total Protein Albumin Procalcitonin Fluid Glucose 54 Fluid Total Protein 3.7 Synovial Source Rt elbow syn fluid Synovial Color Other Synovial Appearance Turbid A Synovial RBC 17817 H Synovial Nuc Cells 74414 H Synovial Neutrophils 95 H Synovial Lymphocytes 3 Synovial Monocytes 1 Synovial Macrophages 1 Synovial Crystals Rare cppd Random Vancomycin 09/29/25 09/29/25 09/29/25 16:26 20:31 21:19 WBC RBC Hgb Hct MCV MCH MCHC RDW Plt Count MPV Immature Gran % (Auto) Neut % (Auto) Lymph % (Auto) Phillips % (Auto) Eos % (Auto) Baso % (Auto) Lymph # (Auto) Phillips # (Auto) Eos # (Auto) Baso # (Auto) Abs Immat Gran (auto) Absolute Neuts (auto) Absolute Nucleated RBC Nucleated RBC % Sodium Potassium Chloride Carbon Dioxide Anion Gap BUN Creatinine Estim Creat Clear Calc Estimated GFR Glucose POC Capillary Glucose 106 H 210 H Calcium Phosphorus Magnesium Total Bilirubin AST ALT Alkaline Phosphatase Total Protein Albumin Procalcitonin Fluid Glucose Fluid Total Protein Synovial Source Synovial Color Synovial Appearance Synovial RBC Synovial Nuc Cells Synovial Neutrophils Synovial Lymphocytes Synovial Monocytes Synovial Macrophages Synovial Crystals Random Vancomycin 8.6 L 09/30/25 09/30/25 09/30/25 05:32 07:25 09:01 WBC 8.1 RBC 2.98 L Hgb 10.0 L Hct 29.8 L MCV 100.0 MCH 33.6 MCHC 33.6 RDW 11.7 Plt Count 216 MPV 10.4 Immature Gran % (Auto) 0.6 H Neut % (Auto) 76.5 H Lymph % (Auto) 9.8 L Phillips % (Auto) 12.0 H Eos % (Auto) 0.7 Baso % (Auto) 0.4 Lymph # (Auto) 0.79 L Phillips # (Auto) 1.0 H Eos # (Auto) 0.1 Baso # (Auto) 0.0 Abs Immat Gran (auto) 0.05 H Absolute Neuts (auto) 6.2 Absolute Nucleated RBC 0.000 Nucleated RBC % 0.0 Sodium 132 L Potassium 3.6 Chloride 104 Carbon Dioxide 24 Anion Gap 4 BUN 26 H Creatinine 1.79 H Estim Creat Clear Calc 40 Estimated GFR 39 L Glucose 150 H POC Capillary Glucose 169 H 164 H Calcium 7.8 L Phosphorus 3.5 Magnesium 2.0 Total Bilirubin 0.6 AST 20 ALT 14 Alkaline Phosphatase 69 Total Protein 5.8 L Albumin 2.9 L Procalcitonin 0.2 Fluid Glucose Fluid Total Protein Synovial Source Synovial Color Synovial Appearance Synovial RBC Synovial Nuc Cells Synovial Neutrophils Synovial Lymphocytes Synovial Monocytes Synovial Macrophages Synovial Crystals Random Vancomycin Quality VTE Prophylaxis VTE prophylaxis: mechanical ordered Hospitalist MIPS Advance Care Plan I have confirmed that the patient's Advanced Care Plan is present, code status is documented, or surrogate decision maker is listed in patient medical record.: Yes Medication Reconciliation I have utilized all available resources to obtain, update and review the patients current medications (includes all prescriptions, OTC, herbals, cannabis, and nutritional supplements).: Yes
[2025-09-30] MEDS: CEFEPIME 2 GM in SODIUM CHLORIDE 0.9% IV 50 ML 100 ML IVPB ×2 (10:06→21:58)
--- NOTE | 2025-09-30 10:28 | P.PNOP_ITS ---
Progress Note: A&P Assessment and Plan (1) Pain and swelling of right elbow: Code(s): M25.521 - Pain in right elbow; M25.421 - Effusion, right elbow Status: Acute Assessment and Plan: Hospital day 3. Admitted with pain and swelling right elbow, severe inflammatory arthritis right elbow joint with suspected septic arthritis based on laboratory studies that were available and positive Gram stain from the ER aspirate 09/28/2025. Yesterday, I conferred with the radiologist and he placed a 5 Yi catheter into the posterior joint recess of the right elbow under ultrasound guidance. 6 cc of serosanguineous fluid were aspirated and sent for labs. Synovial fluid showed 10,000 white cells of which 95% were neutrophils. Calcium pyrophosphate crystals again were noted. G stain was negative. Cultures were again set up. I spoke to the clinical laboratory service teacher at [facility] today for 20 minutes and he was able to get on the [employer] web site and review the culture results from the 09/28/2025 fluid aspirate from the ER which was taken before he had been on any antibiotics. Patient had not been on any antibiotics for the prior 9 days prior to admission. The [employer] Gram stain was felt to be negative on this same fluid that was felt to be positive here at [place] and therefore it is possible that the positive Gram stain at [facility] was a false positive. It is also possible Gram stain at [facility] is false negative. It was not possible due to 2 determined exactly when the plates were evaluated other than to say that there has been no growth thus far as of 930 this morning. The technologist will be here in the lab until 9:00 p.m. and if anything comes over from [employer] he is going to call me on my cellphone. Clinically, patient is doing much better with respect to his right elbow. He can touch his mouth now. He can flex the elbow to 125? and extended to about 40? with only mild discomfort at extremes of movement. Again there was no significant swelling about the elbow and minimal tenderness today about the elbow. He has no erythema or edema. He has intact sensory motor function in the right hand. His chief complaint today is soreness in his neck across the top of the shoulders which he attributes to the bed being uncomfortable here at the hospital. He states this much firmer than his bed at home. He states the neck pain started being noticeable the 1st night he spent in the hospital and he did not have neck pain prior to. It would therefore seem unlikely that if he had an infectious problem in his neck that the symptoms would only appear after he had been started on antibiotics. He denies any other symptoms. The drain today has about 10 cc of hazy somewhat dark yellow fluid the color of urine and there is a little bit of fibrinous clot in the center of the fluid collection. It does not look purulence. Patient's creatinine remains elevated at 1.79 BUN 26. I talked to him about this and he states he has never been told he had any kidney problems prior to this and has never seen a tube molder fiberglass. I recommended that we have him see a tube molder fiberglass while he is here in the hospital as he will need to remain here in the hospital at least until tomorrow while we continue to wait for culture results. I have spoken with Dr. Ingram about this patient. He is eating normally. We can discontinue his IV fluids today. I am going to initiate Lovenox 40 mg subcu Q 24 hours since surgery is not imminent. We will give him the 1st dose this morning for DVT prophylaxis. His creatinine clearance was 40 mL/min this morning. I did review with him that because of his kidney disease he is not allowed to take nonsteroidal anti-inflammatory medications such as Advil and Aleve because these could damage his kidneys further and I advised him that that is a permanent restriction for him. He states that he was not taking these medications prior to this. For his neck pain I am going to prescribe a Medrol Dosepak. This may improve his discomfort in his elbow as well as a sensation of stiffness. Assessment and plan 1. Patient has inflammatory arthritis of the right elbow. Unfortunately we will never know the true cell count from the aspirate from the emergency room as the specimen had too much clot to make that determination. The predominance of neutrophils indicates an acute inflammatory arthritis consistent with pseudogout gout or septic arthritis. Patient has no history of gout. He did have calcium pyrophosphate crystals so there was an element of pseudogout contributing to his clinical picture. Positive Gram stain unusually high sedimentation rate and C- reactive protein from the September 28 and 09/19 respectively were very suspicious for septic arthritis. It is possible that his inflammatory markers are elevated in part due to his chronic renal insufficiency which makes certainly the sedimentation rate less reliable and patient did have an intense reaction to the shingles immunization shot with myalgias and general malaise and this may have caused an acute inflammatory response that may explain his markedly elevated C-reactive protein of 30 7 times normal when he was tested on September 19 which had gone down to 7.8 by the time he had presented to the emergency room on 09/28. His cell count of only 10,000 on the aspirate yesterday is less suggestive of acute septic arthritis of 10 days duration and after less than 24 hours of IV antibiotics. Typically septic arthritis would have a much higher absolute cell count such as 50,000 or 100,000 but in patients with a mean compromise it may be lower. Patient's white count today is 8.1 1000. His absolute neutrophil count is normal today minimal elevation of absolute immature granulocyte count of 0.05 normal being less than 0.031. Also, patient is been completely afebrile during his hospitalization with his maximum temperature of 37.2?. If we had confirmation of septic arthritis of positive cultures I was going to initiate formal irrigation of the elbow using the drain replaced yesterday which has a port through which we can inject and withdrawal normal saline on a repeated basis if this is desired but since his cultures are negative in the fluid looks fairly clear I would recommend putting that plan on hold. This is all explained the patient. 70 minutes were spent in total care this patient today. Subjective Subjective Date/Time Seen: 09/30/25 10:28 Objective Data Vital Signs Vital Signs: Vital Signs - 24 hr 09/29/25 14:00 09/29/25 14:11 09/29/25 17:30 Temperature 36.9 C 37.6 C Pulse Rate 66 65 67 Respiratory Rate 14 16 Blood Pressure 178/74 H 193/73 H 175/72 H Pulse Oximetry 94 98 94 Oxygen Delivery Room Air 09/29/25 20:00 09/29/25 21:49 09/30/25 05:57 Temperature 37.0 C 36.7 C Pulse Rate 65 65 65 Respiratory Rate 17 17 19 Blood Pressure 155/66 H 179/70 H Pulse Oximetry 96 96 98 Oxygen Delivery Room Air 09/30/25 10:00 09/30/25 10:05 Temperature Pulse Rate 62 62 Respiratory Rate Blood Pressure 159/67 H Pulse Oximetry Oxygen Delivery Intake/Output Intake/Output: Intake & Output 09/27/25 09/28/25 09/29/25 11/08/25 23:59 23:59 23:59 23:59 Intake Total 50 209 744 Output Total 6 Balance 50 584 744 Meds/Results Medications: Active Medications Generic Name Dose Route Start Last Admin Trade Name Freq PRN Reason Stop Dose Admin Acetaminophen 500 mg 09/29/25 13:00 09/30/25 10:05 Acetaminophen 500 Mg Tablet PO 500 mg TID HA Administration Hydrocodone Bitart/Acetaminophen 1 tab 09/29/25 09:11 09/30/25 05:37 Hydrocodone/Acetaminophen (*Crx) 5-325 Mg Tablet PO 1 tab Q4H PRN Administration Pain Albuterol 1 puff 09/29/25 01:31 Albuterol Sulfate (*Sp) Aerosol 1 Puff INHALATION Q4HR PRN shortness of breath or Wheezing Amlodipine Besylate 7.5 mg 09/30/25 09:00 09/30/25 10:05 Amlodipine Besylate 2.5 Mg Tablet PO 7.5 mg DAILY HA Administration Atorvastatin Calcium 10 mg 09/29/25 09:00 09/30/25 10:05 Atorvastatin 10 Mg Tablet PO 10 mg DAILY HA Administration Carvedilol 12.5 mg 09/29/25 09:00 09/30/25 10:05 Carvedilol 12.5 Mg Tablet PO 12.5 mg Q12HR HA Administration Cyanocobalamin 1,000 mcg 09/30/25 09:00 09/30/25 10:05 Cyanocobalamin 1,000 Mcg Tablet PO 1,000 mcg QAM HA Administration Dextrose 12.5 gm 09/29/25 02:43 Dextrose 50% 25 Gm/50 Ml Syringe IV PUSH PRN PRN Hypoglycemia Protocol Enoxaparin Sodium 40 mg 09/30/25 10:30 Enoxaparin 40 Mg/0.4 Ml Syringe SUB-Q DAILY HA Glucagon 1 mg 09/29/25 02:43 Glucagon For Inj 1 Mg Vial IM PRN PRN Hypoglycemia Protocol Glucose 15 gm 09/29/25 02:43 Glucose Oral Gel 15 Gm Of Glucse In 37.5 Gm Tube PO PRN PRN Hypoglycemia Protocol Hydralazine HCl 25 mg 09/29/25 21:00 09/30/25 10:06 Hydralazine Hcl 25 Mg Tablet PO 25 mg QID HA Administration Hydromorphone HCl 0.2 mg 09/29/25 09:07 09/30/25 01:12 Hydromorphone Hcl Inj (*Crx) 1 Mg/Ml Syr IV PUSH 0.2 mg Q3H PRN Administration Breakthrough Pain Cefepime HCl 2 gm/ Sodium 50 mls @ 100 mls/hr 09/29/25 10:00 09/30/25 10:06 Chloride IVPB 100 mls/hr Q12H HA Administration Dextrose 1,000 mls @ 100 mls/hr 09/29/25 02:43 Dextrose 5% 1,000 Ml IVPB PRN PRN Hypoglycemia Protocol Dextrose/Sodium Chloride 1,000 mls @ 80 mls/hr 09/29/25 08:15 09/29/25 09:22 Dextrose 5% Sodium Chloride 0.9% IV CONT 80 mls/hr .[id number] HA Administration Insulin Aspart 1 - 2 units 09/29/25 21:00 09/29/25 20:52 Insulin Aspart (*Bkc) 100 Units/Ml SUB-Q 1 units HS HA Administration Protocol Insulin Aspart 2 - 5 units 09/30/25 08:00 09/30/25 09:48 Insulin Aspart (*Bkc) 100 Units/Ml SUB-Q Not [facility] Protocol Levothyroxine Sodium 25 mcg 09/29/25 06:30 09/30/25 05:38 Levothyroxine Sodium 25 Mcg Tablet PO 25 mcg DAILY@0630 HA Administration Melatonin 5 mg 09/29/25 02:00 09/29/25 20:32 Melatonin 5 Mg Tablet PO 5 mg HS HA Administration Methylprednisolone Sodium Succinate 1 dosepack 09/30/25 10:20 Methylprednisolone (Medrol) Dosepack PO DIRECTED HA Ondansetron HCl 4 mg 09/29/25 01:34 09/29/25 14:18 Ondansetron Inj 4 Mg/2 Ml Vial IV PUSH 4 mg Q4H PRN Administration Nausea And Vomiting Pantoprazole Sodium 40 mg 09/29/25 09:00 09/30/25 10:05 Pantoprazole 40 Mg Tablet PO 40 mg Q12HR HA Administration Trazodone HCl 100 mg 09/29/25 01:31 09/29/25 20:31 Trazodone Hcl 50 Mg Tablet PO 100 mg QHS PRN Administration Sleep Vancomycin HCl 1 each 09/28/25 21:16 Vancomycin For Acute Kidney Injury IVPB PRN PRN Vancomycin Protocol Vitamin D 50 mcg 09/29/25 09:00 09/30/25 10:05 Cholecalciferol (Vitamin D3) 25 Mcg (1,000 Units) Tablet PO 50 mcg DAILY HA Administration Radiology Results: ITS Impressions Elbow X-Ray 09/28/25 17:58 Impression: No acute fracture or malalignment. Upper Extremity CT 09/29/25 07:46 IMPRESSION: Findings suspicious for septic arthritis or septic joint effusion with intra- articular cellulitis. No cortical erosion seen to confirm osteomyelitis. NOTE: Preliminary radiology report provided by [facility] physician/radiologist. Drainage Catheter Insertion 09/29/25 15:49 IMPRESSION: 1. Successful ultrasound-guided drainage catheter placement into the posterior recess of the right elbow joint effusion. 2. 6 mL of [id number] fluid was aspirated and sent to the lab. Labs Labs: Laboratory Results - last 24 hr 09/28/25 09/29/25 09/29/25 20:54 11:24 14:48 WBC RBC Hgb Hct MCV MCH MCHC RDW Plt Count MPV Immature Gran % (Auto) Neut % (Auto) Lymph % (Auto) Thomas % (Auto) Eos % (Auto) Baso % (Auto) Lymph # (Auto) Thomas # (Auto) Eos # (Auto) Baso # (Auto) Abs Immat Gran (auto) Absolute Neuts (auto) Absolute Nucleated RBC Nucleated RBC % Sodium Potassium Chloride Carbon Dioxide Anion Gap BUN Creatinine Estim Creat Clear Calc Estimated GFR Glucose POC Capillary Glucose 125 H Calcium Phosphorus Magnesium Total Bilirubin AST ALT Alkaline Phosphatase Total Protein Albumin Procalcitonin Fluid Glucose 54 Fluid Total Protein 3.7 Synovial Source Rt elbow syn fluid Synovial Color Other Synovial Appearance Turbid A Synovial RBC 33964 H Synovial Nuc Cells 95964 H Synovial Neutrophils 95 H Synovial Lymphocytes 3 Synovial Monocytes 1 Synovial Macrophages 1 Synovial Crystals Rare cppd Random Vancomycin 09/29/25 09/29/25 09/29/25 16:26 20:31 21:19 WBC RBC Hgb Hct MCV MCH MCHC RDW Plt Count MPV Immature Gran % (Auto) Neut % (Auto) Lymph % (Auto) Thomas % (Auto) Eos % (Auto) Baso % (Auto) Lymph # (Auto) Thomas # (Auto) Eos # (Auto) Baso # (Auto) Abs Immat Gran (auto) Absolute Neuts (auto) Absolute Nucleated RBC Nucleated RBC % Sodium Potassium Chloride Carbon Dioxide Anion Gap BUN Creatinine Estim Creat Clear Calc Estimated GFR Glucose POC Capillary Glucose 106 H 210 H Calcium Phosphorus Magnesium Total Bilirubin AST ALT Alkaline Phosphatase Total Protein Albumin Procalcitonin Fluid Glucose Fluid Total Protein Synovial Source Synovial Color Synovial Appearance Synovial RBC Synovial Nuc Cells Synovial Neutrophils Synovial Lymphocytes Synovial Monocytes Synovial Macrophages Synovial Crystals Random Vancomycin 8.6 L 09/30/25 09/30/25 09/30/25 05:32 07:25 09:01 WBC 8.1 RBC 2.98 L Hgb 10.0 L Hct 29.8 L MCV 100.0 MCH 33.6 MCHC 33.6 RDW 11.7 Plt Count 216 MPV 10.4 Immature Gran % (Auto) 0.6 H Neut % (Auto) 76.5 H Lymph % (Auto) 9.8 L Thomas % (Auto) 12.0 H Eos % (Auto) 0.7 Baso % (Auto) 0.4 Lymph # (Auto) 0.79 L Thomas # (Auto) 1.0 H Eos # (Auto) 0.1 Baso # (Auto) 0.0 Abs Immat Gran (auto) 0.05 H Absolute Neuts (auto) 6.2 Absolute Nucleated RBC 0.000 Nucleated RBC % 0.0 Sodium 132 L Potassium 3.6 Chloride 104 Carbon Dioxide 24 Anion Gap 4 BUN 26 H Creatinine 1.79 H Estim Creat Clear Calc 40 Estimated GFR 39 L Glucose 150 H POC Capillary Glucose 169 H 164 H Calcium 7.8 L Phosphorus 3.5 Magnesium 2.0 Total Bilirubin 0.6 AST 20 ALT 14 Alkaline Phosphatase 69 Total Protein 5.8 L Albumin 2.9 L Procalcitonin 0.2 Fluid Glucose Fluid Total Protein Synovial Source Synovial Color Synovial Appearance Synovial RBC Synovial Nuc Cells Synovial Neutrophils Synovial Lymphocytes Synovial Monocytes Synovial Macrophages Synovial Crystals Random Vancomycin
[2025-09-30] MEDS: DEXTROSE 5%/0.9% SOD CHL 1,000 ML 80 ML IV CONT (11:09)
--- NOTE | 2025-09-30 11:12 | P.CONNP_ITS ---
Assessment and Plan Assessment and plan (1) Acute kidney injury superimposed on CKD: Code(s): N17.9 - Acute kidney failure, unspecified; N18.9 - Chronic kidney disease, unspecified Status: Acute Assessment and Plan: The patient has chronic kidney disease. This is fairly mild. Probably stage III A. His GFR baseline looks like it is around 55. Most likely this is due to hypertension, diabetes, vascular disease. We can evaluate for other diseases as well while he is here. The patient also has acute kidney injury. This is likely related to his infection plus possibly the ibuprofen he took before he came in. He also might be a bit dehydrated because of his illness. There other other causes such as inflammation, obstruction, infiltrative diseases etc. but I think these are all less likely. Will check a renal ultrasound, urine electrolytes, CPK, serology and immunofixation. I agree with continuing the IV fluids. He is getting antibiotics and is awaiting definitive treatment of his elbow infection. 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 (4) COPD (chronic obstructive pulmonary disease): Code(s): J44.9 - Chronic obstructive pulmonary disease, unspecified Status: Acute Assessment and Plan: He has continued to smoke. Encouraged to quit. (5) Nicotine abuse: Code(s): Z72.0 - Tobacco use Status: Acute Assessment and Plan: See above (6) Dyslipidemia: Code(s): E78.5 - Hyperlipidemia, unspecified Status: Acute Assessment and Plan: He is on atorvastatin at home (7) Essential (primary) hypertension: Code(s): I10 - Essential (primary) hypertension Status: Acute Assessment and Plan: Blood pressure is a bit high. He was on carvedilol, hydrochlorothiazide, lisinopril,. Currently he is on carvedilol and amlodipine as the latter two home meds were held because of his illness. Will see how his blood pressure does on the amlodipine. The dose was just increased [id number] per day to7.5mg per day History of Present Illness Reason for Consult Consult date: 09/30/25 Chief Complaint Chief complaint: septic elbow History of Present Illness Narrative: Tray is a very pleasant 60-year-old gentleman has multiple medical problems including hypertension, diabetes, coronary disease status post myocardial infarction, hyperlipidemia, COPD, current tobacco user, chronic pain, diverticulosis, hypothyroidism, and vitamin-D deficiency. The patient says he got a shingles shot and then about 3 days later developed achiness in that arm. This progressed to swelling in the elbow and swelling in the arm. He came to the emergency room. This is found to be an infected joint. Dr. Barone is on the case and have had a drain placed. He is hoping for transfer to [facility] for definitive treatment of this infection. In the meantime, labs were checked and his creatinine was elevated so renal consultation was requested. The patient does not remember being told of any kidney issues. He does see Rosh[facility] as an outpatient as his primary care provider. He has occasional labs done to assess his kidney function and his GFR generally was above 60 in 2022 it was in the 50s in 2019 for and last February his GFR was 55. On admission his GFR was only 36. The patient denies any bloody urine, foamy urine, kidney stones, or bladder infections. He was taking ibuprofen for about a week before he came in because of the pain. He was taking 2 pills twice a day on average. He did have some change in his blood pressure medication recently but otherwise no changes in medication. He smokes cigarettes. He no longer drinks alcohol. Review of Systems 2 Constitutional: Constitutional: Reports no additional constitutional complaints Eyes: Eyes: Reports no additional eye complaints ENT: Reports system reviewed and no additional complaints, except as documented Cardiovascular: Cardiovascular: Reports no additional cardiovascular complaints Respiratory: Respiratory: Reports no additional respiratory complaints Gastrointestinal: Gastrointestinal: Reports no additional gastrointestinal complaints Genitourinary: Genitourinary: Reports no additional male genitourinary complaints Musculoskeletal: Musculoskeletal: Reports no additional musculoskeletal complaints Integumentary/Breasts: Skin/Breast: Reports system reviewed and no additional complaints, except as docu Neurologic: Reports system reviewed and no additional complaints, except as documented Psychiatric: Psychiatric: Reports no additional psychiatric complaints Endocrine: Endocrine: Reports no additional endocrine complaints [facility] Past Medical History Medical History 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 chronic kidney disease (~2018) Joint pain Paresthesia Chronic pain Rotator cuff tear, right AAA (abdominal aortic aneurysm) without rupture CAD in [place] artery Chronic pain of both knees Dyslipidemia Essential (primary) hypertension History of diverticulitis Hypothyroidism, unspecified Vitamin D deficiency Surgical History Surgical History S/P right rotator cuff repair 12/10/2022 History of coronary artery stent placement x2 Family History Family History Mother Patient's mother is Father Patient's father is Sibling Diabetes mellitus Other Hypertension Social History Social History Social History: The patient is and lives with his . Lori savage had 1 child who . He works for [employer]. He continues to smoke. Code status full code Smoking packs per day: 1.5 Smoking cigarettes per day: 30.0 Years smoked: 40 Smoking pack-years: 60.00 Smoking status: Current every day smoker Tobacco type: cigarettes Second hand tobacco smoke exposure: No Alcohol intake: former Drinks per week: 30 Alcohol use details: quit jul 2022 Substance use: former Substance use type: marijuana Lack of Transportation: No Lack of Food: Never True Current Housing: I Have Housing Concerned About Future Housing: No Difficulty Paying Gas/Electric Bills: No Difficulty Paying for Meds: No Currently Unemployed: No Education: High School Diploma/GED Difficulty w/ Childcare or Family Care: No Living arrangements: with family Occupation/Education: occupation Gender identity (if verbalized by the patient): Male Spiritual care concerns: No Meds Home Medications and Allergies Home Medications ?Medication ?Instructions ?Recorded ?Confirmed ?Type aspirin 81 mg tablet,delayed 81 mg PO DAILY 05/17/20 1 11/29/24 History release (Adult Low Dose Aspirin) cholecalciferol (vitamin D3) 50 50 mcg PO DAILY 09/29/25 History mcg (2,000 unit) capsule melatonin 5 mg tablet 5 mg PO HS #30 tabs 03/06/23 09/29/25 Rx nitroglycerin 0.4 mg sublingual 0.4 mg sublingual Q5M PRN chest 02/28/25 09/29/25 Rx tablet pain #30 tabs atorvastatin 10 mg tablet (Lipitor) 10 mg PO DAILY #90 tabs 03/03/25 09/29/25 Rx pantoprazole 40 mg tablet,delayed 40 mg PO BID #60 tab s 03/28/25 09/29/25 Rx release metformin 1,000 mg tablet 1,000 mg PO BID #180 tabs 09/29/25 Rx albuterol sulfate 90 mcg/actuation See Rx Instructions .Route 06/22/25 09/29/25 Rx aerosol inhaler .COMPLEX #6.7 grams ondansetron 4 mg disintegrating 4 mg PO Q8H PRN nausea and 07/14/25 09/29/25 Rx tablet vomiting #30 tabs levothyroxine 25 mcg tablet 25 mcg PO DAILY #90 tabs 0 07/25/25 09/29/25 Rx lisinopril 20 mg tablet 20 mg PO BID #180 tabs 08/0909/29/25 Rx amlodipine 5 mg tablet 5 mg PO DAILY #90 tabs 09/1209/29/25 Rx carvedilol 12.5 mg tablet 12.5 mg PO Q12H #180 tabs 09/29/25 Rx hydrochlorothiazide 25 mg tablet 25 mg PO DAILY #90 ta bs 09/12/25 09/29/25 Rx trazodone 50 mg tablet See Rx Instructions PO QHS P RN 09/12/25 09/29/25 Rx sleep #60 tabs hydrocodone 5 mg-acetaminophen 325 1 tablet PO Q8H PRN pain #20 tabs 09/19/25 09/29/25 Rx mg tablet Allergies Allergy/AdvReac Type Severity Reaction Status Date / Time amoxicillin AdvReac Intermediate Nausea and Verified 09/29/25 14:28 Vomiting sulfamethoxazole (From AdvReac Nausea and Verified 09/29/25 14:28 Bactrim) Vomiting trimethoprim (From Bactrim) AdvReac Nausea and Verified 09/29/25 14:28 Vomiting Vital Signs Vital Signs - 24 hr 09/29/25 14:00 09/29/25 14:11 09/29/25 17:30 Temperature 98.5 F 99.6 F Pulse Rate 66 65 67 Respiratory Rate 14 16 Blood Pressure 178/74 H 193/73 H 175/72 H Pulse Oximetry 94 98 94 Oxygen Delivery Room Air 09/29/25 20:00 09/29/25 21:49 09/30/25 05:57 Temperature 98.6 F 98.0 F Pulse Rate 65 65 65 Respiratory Rate 17 17 19 Blood Pressure 155/66 H 179/70 H Pulse Oximetry 96 96 98 Oxygen Delivery Room Air 09/30/25 10:00 09/30/25 10:05 Temperature Pulse Rate 62 62 Respiratory Rate Blood Pressure 159/67 H Pulse Oximetry Oxygen Delivery Exam 2 Narrative: Exam Narrative: Well developed well-nourished male in no acute distress Skin is warm and dry without rash Head normocephalic atraumatic Eyes normal sclerae and conjunctivae Mouth normal lips teeth and gums Neck no nodes no thyromegaly no carotid bruits Axillae no nodes Back no CVA tenderness Lungs symmetric and clear to auscultation and percussion Heart regular rate and rhythm without rub or gallop Abdomen bowel sounds positive soft nontender, no HSM, masses, or bruits. Extremities no cyanosis, clubbing, or edema. Right elbow bandage and drain present Pulses 2+ equal in radial arteries Psychological not anxious or depressed Neuro alert and oriented x3 motor 5/5 cranial nerves 2-12 intact reflexes 2+ and equal in the biceps and patellar tendons cerebellar normal rapid alternating movements Results Lab Results 09/30/25 05:32 09/30/25 05:32 Lab results: Most recent lab results Calcium 7.8 mg/dL (8.4-10.2) L 09/30/25 05:32 Phosphorus 3.5 mg/dL (2.5-4.5) 09/30/25 05:32 Magnesium 2.0 mg/dL (1.6-2.3) 09/30/25 05:32
[2025-09-30] MEDS: ENOXAPARIN 40 MG/0.4 ML SYRINGE SUB-Q (11:45)
[2025-09-30] MEDS: methylPREDNISolone (MEDROL) DOSEPACK 4 MG TABLETS PO ×4 (11:46→22:20)
--- NOTE | 2025-09-30 11:52 | PC.NURSE ---
called pharmacy about prednisone dosage. It was due at 0630 09/30/2025. The doctor came in around 10 and talked to the patient and said he would order it for him. Pharmacy said it is ok to give the first 8mg dose now and also give the 4mg 1200 dose now.
[2025-09-30 13:03] LABS: Creatine Kinase 44 U/L (55-170)
[2025-09-30 16:14] LABS: Urea Random Urine 613 MG/DL
[2025-09-30] MEDS: INSULIN ASPART (*BKC) 100 UNITS/ML SUB-Q ×2 (17:55→21:46)
[2025-09-30] MEDS: MELATONIN 5 MG TABLET PO (21:45)
[2025-09-30] MEDS: VANCOMYCIN 1,250 MG/NS 250 ML 1,250 MG/250 ML BAG 166.67 MG IVPB (22:51)
[2025-10-01] MEDS: LACTATED RINGERS 1,000 ML 80 ML IV CONT (00:34)
[2025-10-01 05:21] LABS: Add Urine Microscopic? YES; Appearance Urine Clear (Clear); Glucose Urine UA 3+ mg/dL (Negative); Leukocyte Esterase Ur Negative LEU/UL (Negative); Need Manual Microscopic Reviewed; Nitrate Urine Negative (Negative); Non Pathogenic Casts 0-2; Specific Grav Ur 1.024 (1.001-1.035)
[2025-10-01] MEDS: LEVOTHYROXINE SODIUM 25 MCG TABLET PO (05:31)
[2025-10-01 05:38] LABS: Total Protein Urine Random > 600 mg/dL; Ur Ttl Prot Creatinine Ratio > 4.74 mg/mg (0-0.20)
[2025-10-01 06:00] VITALS: BP 160/75; PULSE 62; RESP 17; TEMP 36.2; O2SAT 98
[2025-10-01] MEDS: methylPREDNISolone (MEDROL) DOSEPACK 4 MG TABLETS PO ×2 (06:05→12:13)
[2025-10-01 06:37] LABS: Hematocrit 31.1 % (42.0-52.0); Hemoglobin 10.1 g/dL (14.0-18.0); Immature Granulocyte Percent A 0.8 % (0-0.5); Lymphocytes Absolute Auto 0.51 K/mm3 (0.9-3.2); Mean Corpuscular HGB Conc 32.5 g/dl (32-36); Mean Corpuscular Hemoglobin 32.7 pg (26-34); Mean Corpuscular Volume 100.6 fl (80-100); Nucleated Red Blood Cells Absolute Auto 0.000 K/mm3 (0.0-0.012); Nucleated Red Blood Cells Perc 0.0 % (0.0-0.2); Platelet Count Result 209 k/mm3 (150-375); Red Blood Count 3.09 M/mm3 (4.6-6.20); White Blood Count 7.9 K/mm3 (4.5-10.0)
[2025-10-01 06:44] LABS: Alanine Aminotransferase 17 U/L (6-50); Albumin Level 2.9 g/dL (3.5-5.1); Alkaline Phosphatase 80 U/L (38-126); Anion Gap 5 mmol/L (4-12); Aspartate Amino Transferase 23 U/L (17-59); Bilirubin,Total 0.3 mg/dL (0.2-1.3); Blood Urea Nitrogen 26 mg/dL (9-20); Calcium 8.0 mg/dL (8.4-10.2); Carbon Dioxide 24 mmol/L (22-30); Chloride 106 mmol/L (98-107); Estimated CRCL calculation 38 ml/min; Estimated Glomerular Filt Rate 37; Glucose 276 mg/dL (65-110); Magnesium 2.1 mg/dL (1.6-2.3); Potassium 3.9 mmol/L (3.4-5.0); Sodium 135 mmol/L (137-145); Total Protein 5.9 g/dL (6.3-8.2)
[2025-10-01] MEDS: INSULIN ASPART (*BKC) 100 UNITS/ML SUB-Q ×2 (09:22→12:08)
[2025-10-01 09:23] VITALS: PULSE 60
[2025-10-01] MEDS: PANTOPRAZOLE 40 MG TABLET PO (09:23)
[2025-10-01] MEDS: ACETAMINOPHEN 500 MG TABLET PO ×2 (09:23→14:17)
[2025-10-01] MEDS: CHOLECALCIFEROL (VITAMIN D3) 25 MCG (1,000 UNITS) TABLET 50 MCG PO (09:23)
[2025-10-01] MEDS: CYANOCOBALAMIN 1,000 MCG TABLET 1000 MCG PO (09:23)
[2025-10-01] MEDS: ATORVASTATIN 10 MG TABLET PO (09:23)
[2025-10-01] MEDS: ENOXAPARIN 40 MG/0.4 ML SYRINGE SUB-Q (09:23)
[2025-10-01] MEDS: CEFEPIME 2 GM in SODIUM CHLORIDE 0.9% IV 50 ML 100 ML IVPB (09:24)
[2025-10-01 09:26] VITALS: BP 187/70; PULSE 60; O2SAT 99
--- NOTE | 2025-10-01 10:54 | P.PNNP_ITS ---
Progress Note: A&P Assessment and Plan (1) Acute kidney injury superimposed on CKD: Code(s): N17.9 - Acute kidney failure, unspecified; N18.9 - Chronic kidney disease, unspecified Status: Acute Assessment and Plan: The patient has chronic kidney disease. This is fairly mild. Probably stage III A. His GFR baseline looks like it is around 55. His urine protein is very high consistent with nephrotic range proteinuria. This is probably from his diabetes. Ultrasound is unremarkable he has 6-10 red cells in his urine. The last urinalysis did not show any blood. Will repeat this down the line. His sed rate is very high at greater than 140, likely related to the infection. C3 and C4 are normal. The rest of the evaluation is pending. He did have a negative RAEAGN back in February of 2024 Most likely this is due to hypertension, diabetes, vascular disease. . The patient also has acute kidney injury. This is likely related to his infection plus possibly the ibuprofen he took before he came in. He also might be a bit dehydrated because of his illness. he is getting IV fluids and antibiotics. However his creatinine is a little higher than yesterday, about the same as on admission. the patient says he is going to leave the hospital today whether we are ready or not. I discussed with him higher risk in this would be with his active elbow infection, drain in place, and his kidney issues. He became quite upset when we discussed this. He will talk more with the hospitalist. I agree with continuing the IV fluids , antibiotics, and definitive repair of his septic arthritis.. (2) Arthritis, septic, elbow: Qualifiers: Laterality: right Septic arthritis organism: due to unspecified organism Qualified Code(s): M00.9 - Pyogenic arthritis, unspecified Code(s): M00.9 - Pyogenic arthritis, unspecified Status: Acute Assessment and Plan: He is on antibiotics (3) 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 chronic kidney disease: Onset Date: ~2017 Qualifiers: Diabetes mellitus manager intermediate insulin use: without manager intermediate use Chronic kidney disease stage 3 subtype: stage 3a (GFR 45-59) Qualified Code(s): E11.22 - Type 2 diabetes mellitus with diabetic chronic kidney disease; N18.31 - Chronic kidney disease, stage 3a Code(s): E11.22 - Type 2 diabetes mellitus with diabetic chronic kidney disease; N18.30 - Chronic kidney disease, stage 3 unspecified Status: Acute Assessment and Plan: He is on sliding scale insulin per hospitalists. (4) COPD (chronic obstructive pulmonary disease): Code(s): J44.9 - Chronic obstructive pulmonary disease, unspecified Status: Acute Assessment and Plan: He has continued to smoke. Encouraged to quit. (5) Nicotine abuse: Code(s): Z72.0 - Tobacco use Status: Acute Assessment and Plan: See above (6) Dyslipidemia: Code(s): E78.5 - Hyperlipidemia, unspecified Status: Acute Assessment and Plan: He is on atorvastatin at home (7) Essential (primary) hypertension: Code(s): I10 - Essential (primary) hypertension Status: Acute Assessment and Plan: Blood pressure is a bit high. He was on carvedilol, hydrochlorothiazide, lisinopril,. Currently he is on carvedilol and amlodipine as the latter two home meds were held because of his illness. Will increase carvedilol to 25 twice a day Subjective Date/time seen: 10/01/25 10:54 Interval history: patient feels okay. His arm is better he ate a good breakfast Review of Systems Cardiovascular: Cardiovascular: Reports no additional cardiovascular complaints Respiratory: Respiratory: Reports no additional respiratory complaints Gastrointestinal: Gastrointestinal: Reports no additional gastrointestinal complaints Genitourinary: Genitourinary: Reports no additional male genitourinary complaints Exam Narrative: WDWN in NAD skin no rash head ncat lungs clear cor reg no rub abd BS+ nontender and soft ext no edema. right elbow bandaged. Objective Data Vital Signs Vital Signs: Vital Signs - 24 hr 09/30/25 13:45 09/30/25 14:00 09/30/25 17:30 Temperature 97.7 F Pulse Rate 64 62 88 Respiratory Rate 18 Blood Pressure 139/60 144/63 H 155/67 H Pulse Oximetry 96 Oxygen Delivery 09/30/25 21:47 09/30/25 21:47 09/30/25 22:00 Temperature 97.9 F Pulse Rate 65 65 Respiratory Rate 17 Blood Pressure 155/65 H Pulse Oximetry 96 Oxygen Delivery Room Air 10/01/25 06:00 10/01/25 09:23 10/01/25 09:26 Temperature 97.2 F L Pulse Rate 62 60 60 Respiratory Rate 17 Blood Pressure 160/75 H 187/70 H Pulse Oximetry 98 99 Oxygen Delivery Intake/Output Intake/Output: Intake & Output 09/28/25 09/29/25 09/30/25 10/01/25 23:59 23:59 23:59 23:59 Intake Total 50 1590 2266 1240 Output Total 6 455 Balance 50 1244 2266 785 Meds/Results Medications: Active Medications Generic Name Dose Route Start Last Admin Trade Name Freq PRN Reason Stop Dose Admin Acetaminophen 500 mg 09/29/25 13:00 10/01/25 09:23 Acetaminophen 500 Mg Tablet PO 500 mg TID HA Administration Hydrocodone Bitart/Acetaminophen 1 tab 09/29/25 09:11 09/30/25 05:37 Hydrocodone/Acetaminophen (*Crx) 5-325 Mg Tablet PO 1 tab Q4H PRN Administration Pain Albuterol 1 puff 09/29/25 01:31 Albuterol Sulfate (*Sp) Aerosol 1 Puff INHALATION Q4HR PRN shortness of breath or Wheezing Amlodipine Besylate 7.5 mg 09/30/25 09:00 10/01/25 09:22 Amlodipine Besylate 2.5 Mg Tablet PO 7.5 mg DAILY HA Administration Atorvastatin Calcium 10 mg 09/29/25 09:00 10/01/25 09:23 Atorvastatin 10 Mg Tablet PO 10 mg DAILY HA Administration Carvedilol 12.5 mg 09/29/25 09:00 10/01/25 09:23 Carvedilol 12.5 Mg Tablet PO 12.5 mg Q12HR HA Administration Cyanocobalamin 1,000 mcg 09/30/25 09:00 10/01/25 09:23 Cyanocobalamin 1,000 Mcg Tablet PO 1,000 mcg QAM HA Administration Cyclobenzaprine HCl 5 mg 09/30/25 15:48 Cyclobenzaprine Hcl 5 Mg Tablet PO Q8H PRN Muscle Spasm Dextrose 12.5 gm 09/29/25 02:43 Dextrose 50% 25 Gm/50 Ml Syringe IV PUSH PRN PRN Hypoglycemia Protocol Enoxaparin Sodium 40 mg 09/30/25 10:30 10/01/25 09:23 Enoxaparin 40 Mg/0.4 Ml Syringe SUB-Q 40 mg DAILY HA Administration Glucagon 1 mg 09/29/25 02:43 Glucagon For Inj 1 Mg Vial IM PRN PRN Hypoglycemia Protocol Glucose 15 gm 09/29/25 02:43 Glucose Oral Gel 15 Gm Of Glucse In 37.5 Gm Tube PO PRN PRN Hypoglycemia Protocol Hydralazine HCl 25 mg 09/29/25 21:00 10/01/25 09:23 Hydralazine Hcl 25 Mg Tablet PO 25 mg QID HA Administration Hydromorphone HCl 0.2 mg 09/29/25 09:07 09/30/25 01:12 Hydromorphone Hcl Inj (*Crx) 1 Mg/Ml Syr IV PUSH 0.2 mg Q3H PRN Administration Breakthrough Pain Cefepime HCl 2 gm/ Sodium 50 mls @ 100 mls/hr 09/29/25 10:00 10/01/25 09:24 Chloride IVPB 100 mls/hr Q12H HA Administration Dextrose 1,000 mls @ 100 mls/hr 09/29/25 02:43 Dextrose 5% 1,000 Ml IVPB PRN PRN Hypoglycemia Protocol Dextrose/Sodium Chloride 1,000 mls @ 80 mls/hr 09/29/25 08:15 09/30/25 19:00 Dextrose 5% Sodium Chloride 0.9% IV CONT 0 mls/hr On Hold: 09/30/25 23:23 .[id number] HA Infusion Lactated Ringer's 1,000 mls @ 80 mls/hr 09/30/25 23:30 10/01/25 00:34 Lr - Lactated Ringers Iv IV CONT 80 mls/hr .[id number] HA Administration Insulin Aspart 1 - 2 units 09/29/25 21:00 09/30/25 21:46 Insulin Aspart (*Bkc) 100 Units/Ml SUB-Q 1 units HS HA Administration Protocol Insulin Aspart 2 - 5 units 09/30/25 08:00 10/01/25 09:22 Insulin Aspart (*Bkc) 100 Units/Ml SUB-Q 3 units TIDWM HA Administration Protocol Levothyroxine Sodium 25 mcg 09/29/25 06:30 10/01/25 05:31 Levothyroxine Sodium 25 Mcg Tablet PO 25 mcg DAILY@0630 HA Administration Melatonin 5 mg 09/29/25 02:00 09/30/25 21:45 Melatonin 5 Mg Tablet PO 5 mg HS HA Administration Methylprednisolone 4 mg 09/30/25 06:30 10/01/25 06:05 Methylprednisolone (Medrol) Dosepack 4 Mg Tablets PO 10/05/25 07:29 4 mg 0630,1200,1700 HA Administration Taper Ondansetron HCl 4 mg 09/29/25 01:34 09/29/25 14:18 Ondansetron Inj 4 Mg/2 Ml Vial IV PUSH 4 mg Q4H PRN Administration Nausea And Vomiting Pantoprazole Sodium 40 mg 09/29/25 09:00 10/01/25 09:23 Pantoprazole 40 Mg Tablet PO 40 mg Q12HR HA Administration Trazodone HCl 100 mg 09/29/25 01:31 09/29/25 20:31 Trazodone Hcl 50 Mg Tablet PO 100 mg QHS PRN Administration Sleep Vancomycin HCl 1 each 09/28/25 21:16 Vancomycin For Acute Kidney Injury IVPB PRN PRN Vancomycin Protocol Vitamin D 50 mcg 09/29/25 09:00 10/01/25 09:23 Cholecalciferol (Vitamin D3) 25 Mcg (1,000 Units) Tablet PO 50 mcg DAILY HA Administration Radiology Results: ITS Impressions Elbow X-Ray 09/28/25 17:58 Impression: No acute fracture or malalignment. Upper Extremity CT 09/29/25 07:46 IMPRESSION: Findings suspicious for septic arthritis or septic joint effusion with intra- articular cellulitis. No cortical erosion seen to confirm osteomyelitis. NOTE: Preliminary radiology report provided by [facility] physician/radiologist. Drainage Catheter Insertion 09/29/25 15:49 IMPRESSION: 1. Successful ultrasound-guided drainage catheter placement into the posterior recess of the right elbow joint effusion. 2. 6 mL of [id number] fluid was aspirated and sent to the lab. Renal Ultrasound 10/01/25 09:40 IMPRESSION: 1. No acute abnormality. Labs Labs: Laboratory Results - last 24 hr 09/30/25 09/30/25 09/30/25 11:03 12:05 15:47 WBC RBC Hgb Hct MCV MCH MCHC RDW Plt Count MPV Immature Gran % (Auto) Neut % (Auto) Lymph % (Auto) [place] % (Auto) Eos % (Auto) Baso % (Auto) Lymph # (Auto) [place] # (Auto) Eos # (Auto) Baso # (Auto) Abs Immat Gran (auto) Absolute Neuts (auto) Absolute Nucleated RBC Nucleated RBC % ESR > 140 H Sodium Potassium Chloride Carbon Dioxide Anion Gap BUN Creatinine Estim Creat Clear Calc Estimated GFR Glucose POC Capillary Glucose 180 H Calcium Phosphorus Magnesium Total Bilirubin AST ALT Alkaline Phosphatase Total Creatine Kinase 44 L Total Protein Albumin Urine Color Urine Appearance Urine pH Ur Specific [place] Urine Protein Urine Glucose (UA) Urine Ketones Ur Blood (Man) Urine Nitrate Urine Bilirubin Urine Urobilinogen Ur Leukocyte Esterase Add Ur Microanalysis Urine RBC Urine WBC Ur Squamous Epith Cells Urine Bacteria Urine Casts U Random Total Protein Ur Random Sodium Ur Random Urea 613 Urine Creatinine Protein/Creat Ratio 2 Random Vancomycin RAEGAN Screen Cancelled RAEGAN Titer Cancelled RAEGAN Titer 2 Cancelled RAEGAN Titer 3 Cancelled RAEGAN Pattern Cancelled RAEGAN Pattern 2 Cancelled RAEGAN Pattern 3 Cancelled RAEGAN Comment Cancelled Complement C3 117 Complement C4 27.1 09/30/25 09/30/25 09/30/25 16:22 17:52 21:04 WBC RBC Hgb Hct MCV MCH MCHC RDW Plt Count MPV Immature Gran % (Auto) Neut % (Auto) Lymph % (Auto) [place] % (Auto) Eos % (Auto) Baso % (Auto) Lymph # (Auto) [place] # (Auto) Eos # (Auto) Baso # (Auto) Abs Immat Gran (auto) Absolute Neuts (auto) Absolute Nucleated RBC Nucleated RBC % ESR Sodium Potassium Chloride Carbon Dioxide Anion Gap BUN Creatinine Estim Creat Clear Calc Estimated GFR Glucose POC Capillary Glucose 290 H 284 H 289 H Calcium Phosphorus Magnesium Total Bilirubin AST ALT Alkaline Phosphatase Total Creatine Kinase Total Protein Albumin Urine Color Urine Appearance Urine pH Ur Specific [place] Urine Protein Urine Glucose (UA) Urine Ketones Ur Blood (Man) Urine Nitrate Urine Bilirubin Urine Urobilinogen Ur Leukocyte Esterase Add Ur Microanalysis Urine RBC Urine WBC Ur Squamous Epith Cells Urine Bacteria Urine Casts U Random Total Protein Ur Random Sodium Ur Random Urea Urine Creatinine Protein/Creat Ratio 2 Random Vancomycin RAEGAN Screen RAEGAN Titer RAEGAN Titer 2 RAEGAN Titer 3 RAEGAN Pattern RAEGAN Pattern 2 RAEGAN Pattern 3 RAEGAN Comment Complement C3 Complement C4 09/30/25 10/01/25 10/01/25 21:58 04:50 05:39 WBC 7.9 RBC 3.09 L Hgb 10.1 L Hct 31.1 L MCV 100.6 H MCH 32.7 MCHC 32.5 RDW 11.6 Plt Count 209 MPV 10.5 H Immature Gran % (Auto) 0.8 H Neut % (Auto) 86.9 H Lymph % (Auto) 6.5 L [place] % (Auto) 5.7 Eos % (Auto) 0.0 Baso % (Auto) 0.1 L Lymph # (Auto) 0.51 L [place] # (Auto) 0.5 Eos # (Auto) 0.0 Baso # (Auto) 0.0 Abs Immat Gran (auto) 0.06 H Absolute Neuts (auto) 6.9 H Absolute Nucleated RBC 0.000 Nucleated RBC % 0.0 ESR Sodium 135 L Potassium 3.9 Chloride 106 Carbon Dioxide 24 Anion Gap 5 BUN 26 H Creatinine 1.87 H Estim Creat Clear Calc 38 Estimated GFR 37 L Glucose 276 H POC Capillary Glucose Calcium 8.0 L Phosphorus 3.5 Magnesium 2.1 Total Bilirubin 0.3 AST 23 ALT 17 Alkaline Phosphatase 80 Total Creatine Kinase Total Protein 5.9 L Albumin 2.9 L Urine Color Yellow Urine Appearance Clear Urine pH 5.5 Ur Specific [place] 1.024 Urine Protein 4+ H Urine Glucose (UA) 3+ H Urine Ketones Trace H Ur Blood (Man) Negative Urine Nitrate Negative Urine Bilirubin Negative Urine Urobilinogen 0.2 Ur Leukocyte Esterase Negative Add Ur Microanalysis Reviewed Urine RBC 6-10 H Urine WBC 0-5 Ur Squamous Epith Cells None seen Urine Bacteria None seen Urine Casts 0-2 U Random Total Protein > 600 Ur Random Sodium 64 Ur Random Urea Urine Creatinine 126.7 Protein/Creat Ratio 2 > 4.74 H Random Vancomycin 11.4 RAEGAN Screen RAEGAN Titer RAEGAN Titer 2 RAEGAN Titer 3 RAEGAN Pattern RAEGAN Pattern 2 RAEGAN Pattern 3 RAEGAN Comment Complement C3 Complement C4 10/01/25 10/01/25 07:20 09:06 WBC RBC Hgb Hct MCV MCH MCHC RDW Plt Count MPV Immature Gran % (Auto) Neut % (Auto) Lymph % (Auto) [place] % (Auto) Eos % (Auto) Baso % (Auto) Lymph # (Auto) [place] # (Auto) Eos # (Auto) Baso # (Auto) Abs Immat Gran (auto) Absolute Neuts (auto) Absolute Nucleated RBC Nucleated RBC % ESR Sodium Potassium Chloride Carbon Dioxide Anion Gap BUN Creatinine Estim Creat Clear Calc Estimated GFR Glucose POC Capillary Glucose 273 H 258 H Calcium Phosphorus Magnesium Total Bilirubin AST ALT Alkaline Phosphatase Total Creatine Kinase Total Protein Albumin Urine Color Urine Appearance Urine pH Ur Specific [place] Urine Protein Urine Glucose (UA) Urine Ketones Ur Blood (Man) Urine Nitrate Urine Bilirubin Urine Urobilinogen Ur Leukocyte Esterase Add Ur Microanalysis Urine RBC Urine WBC Ur Squamous Epith Cells Urine Bacteria Urine Casts U Random Total Protein Ur Random Sodium Ur Random Urea Urine Creatinine Protein/Creat Ratio 2 Random Vancomycin RAEGAN Screen RAEGAN Titer RAEGAN Titer 2 RAEGAN Titer 3 RAEGAN Pattern RAEGAN Pattern 2 RAEGAN Pattern 3 RAEGAN Comment Complement C3 Complement C4
--- NOTE | 2025-10-01 11:30 | PM.PNORT ---
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 Hospital day 4. Patient states that his ?elbow feels great ? He has range of motion from 130? to 10? today full pronation supination all without discomfort. There is no redness swelling or warmth to there is no tenderness about the elbow. His neck pain is much better. Minimal sensation of stiffness only occasionally during the night. He seems to have responded rapidly to Medrol Dosepak. His blood sugars are elevated. In part this may be due to the IV fluids which contain glucose but as the hospitalist noted is Medrol Dosepak may be making his blood sugars go up also. The cultures are still listed as pending. This company does not give updates on the cultures and we have no way of obtaining updates but we are assured that they are checked daily and if there is growth it will be report to the hospital immediately. The cultures have been in possession of [facility] now for at least 48 hours and the absence of growth would suggest that likely this is not an infection and that the initial Gram stain at the hospital here was a false-positive. The laborer filter plant yesterday told me that when [facility] did a Gram stain on the 09/28/2025 specimen they felt the Gram stain was negative. The drain fluid is clear yellow fluid today. Assessment and plan Based on his progression over the last 2 days, I feel is very unlikely that this gentleman has a septic arthritis of the right elbow. The clear draining fluid, the full range of motion today without discomfort, would be extremely atypical of with an established septic arthritis after 2 and half days of IV antibiotics. This points to pseudogout as the etiology for his presentation with severe pain and acute inflammatory arthritis with 95% neutrophils. We do not know what the initial cell count is because it could not be run due to the synovial fluid being clotted on the initial specimen from his presentation. Patient states that if he is not released he is going to leave AMA. He seems very anxious and somewhat irritable. I have spoken to the hospitalist. Dr. nIgram ordered a 24 hour urine and some other tests and he will need to be notified the patient is going to be leaving. I am sure he can collect a 24 hour urine on his own at home. I have spoke with the hospitalist and she is going to consider best treatment of his apparent iron deficiency anemia with low iron saturation despite total iron binding capacity also being low. I have recommended that we continue with antibiotic coverage until I see him back in the office in 5 days and we should have final culture results by then. I am going to prescribe doxycycline which should not need dose adjustment with his chronic renal disease and we could lower his steroid dose to 10 mg daily prednisone which will hopefully affect his blood sugars less. I did discussed with him that he is no longer allowed to take Advil or Aleve or ibuprofen or naproxen her any nonsteroidal anti-inflammatory medications. Apparently he was taking a lot of ibuprofen before he came in and I had asked to about Advil which he denied. Dr. Ingram discover that. I spoke with the patient again and this time his was present and I went over these issues with her as well. We discussed the seriousness of his chronic kidney disease. The had elevated creatinine back in 2022 when he was hospitalized with diverticulitis and he was instructed to follow-up with his primary care physician to make sure that his kidney function levels returned to normal after his acute illness had resolved but he never followed up. He is going to follow-up with Dr. Ingram this time. I explained to his that we need to get the 24 hour urine and she will be happy to do this. I conferred again with the hospitalist about the doxycycline and reducing the Medrol Dosepak to 5 mg prednisone per day. First day of the Medrol Dosepak is 24 mg which corresponds to 30 mg of prednisone so the 10 mg would be much lower dose and I think this will be adequate control is elbow symptoms. Subjective Subjective Date/Time Seen: 10/01/25 11:30 Objective Data Vital Signs Vital Signs: Vital Signs - 24 hr 09/30/25 13:45 09/30/25 14:00 09/30/25 17:30 Temperature 36.5 C Pulse Rate 64 62 88 Respiratory Rate 18 Blood Pressure 139/60 144/63 H 155/67 H Pulse Oximetry 96 Oxygen Delivery 09/30/25 21:47 09/30/25 21:47 09/30/25 22:00 Temperature 36.6 C Pulse Rate 65 65 Respiratory Rate 17 Blood Pressure 155/65 H Pulse Oximetry 96 Oxygen Delivery Room Air 10/01/25 06:00 10/01/25 09:23 10/01/25 09:26 Temperature 36.2 C L Pulse Rate 62 60 60 Respiratory Rate 17 Blood Pressure 160/75 H 187/70 H Pulse Oximetry 98 99 Oxygen Delivery Intake/Output Intake/Output: Intake & Output 09/28/25 09/29/25 09/30/25 10/01/25 23:59 23:59 23:59 23:59 Intake Total 50 1590 2266 1240 Output Total 6 455 Balance 50 1584 2266 785 Meds/Results Medications: Active Medications Generic Name Dose Route Start Last Admin Trade Name Freq PRN Reason Stop Dose Admin Acetaminophen 500 mg 09/29/25 13:00 10/01/25 09:23 Acetaminophen 500 Mg Tablet PO 500 mg TID HA Administration Hydrocodone Bitart/Acetaminophen 1 tab 09/29/25 09:11 09/30/25 05:37 Hydrocodone/Acetaminophen (*Crx) 5-325 Mg Tablet PO 1 tab Q4H PRN Administration Pain Albuterol 1 puff 09/29/25 01:31 Albuterol Sulfate (*Sp) Aerosol 1 Puff INHALATION Q4HR PRN shortness of breath or Wheezing Amlodipine Besylate 7.5 mg 09/30/25 09:00 10/01/25 09:22 Amlodipine Besylate 2.5 Mg Tablet PO 7.5 mg DAILY HA Administration Atorvastatin Calcium 10 mg 09/29/25 09:00 10/01/25 09:23 Atorvastatin 10 Mg Tablet PO 10 mg DAILY HA Administration Carvedilol 25 mg 10/01/25 21:00 Carvedilol 25 Mg Tablet PO Q12HR [facility] Cyanocobalamin 1,000 mcg 09/30/25 09:00 10/01/25 09:23 Cyanocobalamin 1,000 Mcg Tablet PO 1,000 mcg QAM HA Administration Cyclobenzaprine HCl 5 mg 09/30/25 15:48 Cyclobenzaprine Hcl 5 Mg Tablet PO Q8H PRN Muscle Spasm Dextrose 12.5 gm 09/29/25 02:43 Dextrose 50% 25 Gm/50 Ml Syringe IV PUSH PRN PRN Hypoglycemia Protocol Enoxaparin Sodium 40 mg 09/30/25 10:30 10/01/25 09:23 Enoxaparin 40 Mg/0.4 Ml Syringe SUB-Q 40 mg DAILY HA Administration Glucagon 1 mg 09/29/25 02:43 Glucagon For Inj 1 Mg Vial IM PRN PRN Hypoglycemia Protocol Glucose 15 gm 09/29/25 02:43 Glucose Oral Gel 15 Gm Of Glucse In 37.5 Gm Tube PO PRN PRN Hypoglycemia Protocol Hydralazine HCl 25 mg 09/29/25 21:00 10/01/25 09:23 Hydralazine Hcl 25 Mg Tablet PO 25 mg QID HA Administration Hydromorphone HCl 0.2 mg 09/29/25 09:07 09/30/25 01:12 Hydromorphone Hcl Inj (*Crx) 1 Mg/Ml Syr IV PUSH 0.2 mg Q3H PRN Administration Breakthrough Pain Cefepime HCl 2 gm/ Sodium 50 mls @ 100 mls/hr 09/29/25 10:00 10/01/25 09:24 Chloride IVPB 100 mls/hr Q12H HA Administration Dextrose 1,000 mls @ 100 mls/hr 09/29/25 02:43 Dextrose 5% 1,000 Ml IVPB PRN PRN Hypoglycemia Protocol Dextrose/Sodium Chloride 1,000 mls @ 80 mls/hr 09/29/25 08:15 09/30/25 19:00 Dextrose 5% Sodium Chloride 0.9% IV CONT 0 mls/hr On Hold: 09/30/25 23:23 .[id number] HA Infusion Lactated Ringer's 1,000 mls @ 80 mls/hr 09/30/25 23:30 10/01/25 00:34 Lr - Lactated Ringers Iv IV CONT 80 mls/hr .[id number] HA Administration Insulin Aspart 1 - 2 units 09/29/25 21:00 09/30/25 21:46 Insulin Aspart (*Bkc) 100 Units/Ml SUB-Q 1 units HS HA Administration Protocol Insulin Aspart 2 - 5 units 09/30/25 08:00 10/01/25 09:22 Insulin Aspart (*Bkc) 100 Units/Ml SUB-Q 3 units TIDWM HA Administration Protocol Levothyroxine Sodium 25 mcg 09/29/25 06:30 10/01/25 05:31 Levothyroxine Sodium 25 Mcg Tablet PO 25 mcg DAILY@0630 HA Administration Melatonin 5 mg 09/29/25 02:00 09/30/25 21:45 Melatonin 5 Mg Tablet PO 5 mg HS HA Administration Methylprednisolone 4 mg 09/30/25 06:30 10/01/25 06:05 Methylprednisolone (Medrol) Dosepack 4 Mg Tablets PO 10/05/25 07:29 4 mg 0630,1200,1700 HA Administration Taper Ondansetron HCl 4 mg 09/29/25 01:34 09/29/25 14:18 Ondansetron Inj 4 Mg/2 Ml Vial IV PUSH 4 mg Q4H PRN Administration Nausea And Vomiting Pantoprazole Sodium 40 mg 09/29/25 09:00 10/01/25 09:23 Pantoprazole 40 Mg Tablet PO 40 mg Q12HR HA Administration Trazodone HCl 100 mg 09/29/25 01:31 09/29/25 20:31 Trazodone Hcl 50 Mg Tablet PO 100 mg QHS PRN Administration Sleep Vancomycin HCl 1 each 09/28/25 21:16 Vancomycin For Acute Kidney Injury IVPB PRN PRN Vancomycin Protocol Vitamin D 50 mcg 09/29/25 09:00 10/01/25 09:23 Cholecalciferol (Vitamin D3) 25 Mcg (1,000 Units) Tablet PO 50 mcg DAILY HA Administration Radiology Results: ITS Impressions Elbow X-Ray 09/28/25 17:58 Impression: No acute fracture or malalignment. Upper Extremity CT 09/29/25 07:46 IMPRESSION: Findings suspicious for septic arthritis or septic joint effusion with intra-articular cellulitis. No cortical erosion seen to confirm osteomyelitis. NOTE: Preliminary radiology report provided by [facility] physician/radiologist. Drainage Catheter Insertion 09/29/25 15:49 IMPRESSION: 1. Successful ultrasound-guided drainage catheter placement into the posterior recess of the right elbow joint effusion. 2. 6 mL of [id number] fluid was aspirated and sent to the lab. Renal Ultrasound 10/01/25 09:40 IMPRESSION: 1. No acute abnormality. Labs Labs: Laboratory Results - last 24 hr 09/30/25 09/30/25 09/30/25 11:03 12:05 15:47 WBC RBC Hgb Hct MCV MCH MCHC RDW Plt Count MPV Immature Gran % (Auto) Neut % (Auto) Lymph % (Auto) [place] % (Auto) Eos % (Auto) Baso % (Auto) Lymph # (Auto) [place] # (Auto) Eos # (Auto) Baso # (Auto) Abs Immat Gran (auto) Absolute Neuts (auto) Absolute Nucleated RBC Nucleated RBC % ESR > 140 H Sodium Potassium Chloride Carbon Dioxide Anion Gap BUN Creatinine Estim Creat Clear Calc Estimated GFR Glucose POC Capillary Glucose 180 H Calcium Phosphorus Magnesium Total Bilirubin AST ALT Alkaline Phosphatase Total Creatine Kinase 44 L Total Protein Albumin Urine Color Urine Appearance Urine pH Ur Specific [place] Urine Protein Urine Glucose (UA) Urine Ketones Ur Blood (Man) Urine Nitrate Urine Bilirubin Urine Urobilinogen Ur Leukocyte Esterase Add Ur Microanalysis Urine RBC Urine WBC Ur Squamous Epith Cells Urine Bacteria Urine Casts U Random Total Protein Ur Random Sodium Ur Random Urea 613 Urine Creatinine Protein/Creat Ratio 2 Random Vancomycin RAEGAN Screen Cancelled RAEGAN Titer Cancelled RAEGAN Titer 2 Cancelled RAEGAN Titer 3 Cancelled RAEGAN Pattern Cancelled RAEGAN Pattern 2 Cancelled RAEGAN Pattern 3 Cancelled RAEGAN Comment Cancelled Complement C3 117 Complement C4 27.1 09/30/25 09/30/25 09/30/25 16:22 17:52 21:04 WBC RBC Hgb Hct MCV MCH MCHC RDW Plt Count MPV Immature Gran % (Auto) Neut % (Auto) Lymph % (Auto) [place] % (Auto) Eos % (Auto) Baso % (Auto) Lymph # (Auto) [place] # (Auto) Eos # (Auto) Baso # (Auto) Abs Immat Gran (auto) Absolute Neuts (auto) Absolute Nucleated RBC Nucleated RBC % ESR Sodium Potassium Chloride Carbon Dioxide Anion Gap BUN Creatinine Estim Creat Clear Calc Estimated GFR Glucose POC Capillary Glucose 290 H 284 H 289 H Calcium Phosphorus Magnesium Total Bilirubin AST ALT Alkaline Phosphatase Total Creatine Kinase Total Protein Albumin Urine Color Urine Appearance Urine pH Ur Specific [place] Urine Protein Urine Glucose (UA) Urine Ketones Ur Blood (Man) Urine Nitrate Urine Bilirubin Urine Urobilinogen Ur Leukocyte Esterase Add Ur Microanalysis Urine RBC Urine WBC Ur Squamous Epith Cells Urine Bacteria Urine Casts U Random Total Protein Ur Random Sodium Ur Random Urea Urine Creatinine Protein/Creat Ratio 2 Random Vancomycin RAEGAN Screen RAEGAN Titer RAEGAN Titer 2 RAEGAN Titer 3 RAEGAN Pattern RAEGAN Pattern 2 RAEGAN Pattern 3 RAEGAN Comment Complement C3 Complement C4 09/30/25 10/01/25 10/01/25 21:58 04:50 05:39 WBC 7.9 RBC 3.09 L Hgb 10.1 L Hct 31.1 L MCV 100.6 H MCH 32.7 MCHC 32.5 RDW 11.6 Plt Count 209 MPV 10.5 H Immature Gran % (Auto) 0.8 H Neut % (Auto) 86.9 H Lymph % (Auto) 6.5 L [place] % (Auto) 5.7 Eos % (Auto) 0.0 Baso % (Auto) 0.1 L Lymph # (Auto) 0.51 L [place] # (Auto) 0.5 Eos # (Auto) 0.0 Baso # (Auto) 0.0 Abs Immat Gran (auto) 0.06 H Absolute Neuts (auto) 6.9 H Absolute Nucleated RBC 0.000 Nucleated RBC % 0.0 ESR Sodium 135 L Potassium 3.9 Chloride 106 Carbon Dioxide 24 Anion Gap 5 BUN 26 H Creatinine 1.87 H Estim Creat Clear Calc 38 Estimated GFR 37 L Glucose 276 H POC Capillary Glucose Calcium 8.0 L Phosphorus 3.5 Magnesium 2.1 Total Bilirubin 0.3 AST 23 ALT 17 Alkaline Phosphatase 80 Total Creatine Kinase Total Protein 5.9 L Albumin 2.9 L Urine Color Yellow Urine Appearance Clear Urine pH 5.5 Ur Specific [place] 1.024 Urine Protein 4+ H Urine Glucose (UA) 3+ H Urine Ketones Trace H Ur Blood (Man) Negative Urine Nitrate Negative Urine Bilirubin Negative Urine Urobilinogen 0.2 Ur Leukocyte Esterase Negative Add Ur Microanalysis Reviewed Urine RBC 6-10 H Urine WBC 0-5 Ur Squamous Epith Cells None seen Urine Bacteria None seen Urine Casts 0-2 U Random Total Protein > 600 Ur Random Sodium 64 Ur Random Urea Urine Creatinine 126.7 Protein/Creat Ratio 2 > 4.74 H Random Vancomycin 11.4 RAEGAN Screen RAEGAN Titer RAEGAN Titer 2 RAEGAN Titer 3 RAEGAN Pattern RAEGAN Pattern 2 RAEGAN Pattern 3 RAEGAN Comment Complement C3 Complement C4 10/01/25 10/01/25 07:20 09:06 WBC RBC Hgb Hct MCV MCH MCHC RDW Plt Count MPV Immature Gran % (Auto) Neut % (Auto) Lymph % (Auto) [place] % (Auto) Eos % (Auto) Baso % (Auto) Lymph # (Auto) [place] # (Auto) Eos # (Auto) Baso # (Auto) Abs Immat Gran (auto) Absolute Neuts (auto) Absolute Nucleated RBC Nucleated RBC % ESR Sodium Potassium Chloride Carbon Dioxide Anion Gap BUN Creatinine Estim Creat Clear Calc Estimated GFR Glucose POC Capillary Glucose 273 H 258 H Calcium Phosphorus Magnesium Total Bilirubin AST ALT Alkaline Phosphatase Total Creatine Kinase Total Protein Albumin Urine Color Urine Appearance Urine pH Ur Specific [place] Urine Protein Urine Glucose (UA) Urine Ketones Ur Blood (Man) Urine Nitrate Urine Bilirubin Urine Urobilinogen Ur Leukocyte Esterase Add Ur Microanalysis Urine RBC Urine WBC Ur Squamous Epith Cells Urine Bacteria Urine Casts U Random Total Protein Ur Random Sodium Ur Random Urea Urine Creatinine Protein/Creat Ratio 2 Random Vancomycin RAEGAN Screen RAEGAN Titer RAEGAN Titer 2 RAEGAN Titer 3 RAEGAN Pattern RAEGAN Pattern 2 RAEGAN Pattern 3 RAEGAN Comment Complement C3 Complement C4
--- NOTE | 2025-10-01 12:48 | P.DS_ITS ---
DS: Admitting Diagnosis Discharge Date 10/01/2025 Admitting Diagnosis Arthritis, septic DS: Discharge Diagnosis Discharge Diagnosis (1) Pseudogout: Code(s): M11.20 - Other chondrocalcinosis, unspecified site Status: Acute DS: Summary Hospital Course Reason for hospitalization: Copied from [facility] 09/29: This is a 60 year old male patient with history of hypertension type 2 diabetes, coronary artery disease hyperlipidemia COPD and chronic kidney disease who is admitted to the hospital for septic right elbow. For the last 2 weeks or so patient has experiencing right elbow pain and swelling. He developed fever and chills with increased swelling which brought him to the emergency department for evaluation. Workup in the emergency department reveals right elbow joint effusion with limited range of motion. Labs significant for acute kidney injury on reported chronic kidney disease as well as mild hyponatremia mild leukocytosis mild anemia. Inflammatory markers significantly elevated with ESR greater than 140 and CRP of 7.8. Joint effusion was aspirated in the emergency department and Gram stain was positive for Gram-positive cocci as well as numerous white blood cells. There were also CPPD crystals noted though the crystals were rare. This aspirate leads to a diagnosis septic right elbow with pseudogout. Orthopedics, Dr. Yang, consulted by ER states to keep patient NPO after midnight for joint washout in the operating room. Hospital Course: Right elbow effusion Pseudogout Initial concern for Septic arthritis and a drain was placed. He was started on empiric Cefepime and Vancomycin. Right elbow effusion worsening over 2 weeks. CPPD crystals noted Initially thought to be septic arthritis but significantly improved overnight with steroids so seems consistent with inflammatory arthritis. Orthopedic surgery consulted, Dr. Barone evaluated. IR drain placed, initially considered transfer but swelling and pain almost resolved overnight with steroids so drain discontinued and discharged home with daily Gram positive cocci and many WBCs on Gram Stain of aspirate in ER--follow cultures ID consulted, appreciate recommendations Vancomycin and cefepime started in ER, both renally dosed due to CHITRA, continued doxycycline at discharge Following up with orthopedic surgery outpatient Final cultures pending Acute kidney injury superimposed on CKD: History of Stage 3 CKD CHITRA noted with Cr 1.91 and eGFR 36, Creatinine improved 1.9, improved to 1.89 2 liters IV fluids given in ER and IV fluids while NPO before surgery ordered --Avoid nephrotoxins Follow BMP outpatient Planning follow up with nephrology May need to adjust antibiotics based on renal function response Held HCTZ, metformin and lisinopril. Resumed metformin since creatinine clearance >30 but hctz and lisinopril held. Adjusted meds for HTN as noted below 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 chronic kidney disease: Elevated blood sugars Onset Date: ~2017 A1c 5.7 in August 2025 Held metformin during admission Required insulin during admission. Blood sugars elevated related to Prednisone reduced to 10mg daily for discharge so resumed metformin Recommended checking blood sugars ACHS. Does not like to check blood sugars frequently so advised to check at least daily at different times. He was not interested in taking insulin and having frequent blood sugar checks so not a good candidate for high dose Prednisone at home. Essential (primary) hypertension: Home meds: amlodipine and carvedilol, hold HCTZ and lisinopril due to CHITRA on CKD Use alternate blood pressure management if renal function does not improve after fluids Increase hydralazine to 25mg TID<QID>TID Increase amlodipine from 5mg<7.5mg Continue Carvedilol 12.5mg BID COPD (chronic obstructive pulmonary disease): Stable, continued home medications Status at Discharge Cognitive/behavioral status at discharge: A&Ox4 Time Spent with Patient Time attestation: Total time spent providing and/or coordinating discharge services:53 minutes Exam Narrative: WDWN in NAD skin no rash head ncat lungs clear cor reg no rub abd BS+ nontender and soft ext no edema. right elbow bandaged. DS: Data Data Completed and Pending Labs on day of discharge: Labs from last 24 hours 10/01/25 10/01/25 10/01/25 11:23 09:06 07:20 WBC RBC Hgb Hct MCV MCH MCHC RDW Plt Count MPV Immature Gran % (Auto) Neut % (Auto) Lymph % (Auto) [place] % (Auto) Eos % (Auto) Baso % (Auto) Lymph # (Auto) [place] # (Auto) Eos # (Auto) Baso # (Auto) Abs Immat Gran (auto) Absolute Neuts (auto) Absolute Nucleated RBC Nucleated RBC % ESR Sodium Potassium Chloride Carbon Dioxide Anion Gap BUN Creatinine Estim Creat Clear Calc Estimated GFR Glucose POC Capillary Glucose 230 H 258 H 273 H Calcium Phosphorus Magnesium Total Bilirubin AST ALT Alkaline Phosphatase Total Creatine Kinase Total Protein Albumin Urine Color Urine Appearance Urine pH Ur Specific Lackey Urine Protein Urine Glucose (UA) Urine Ketones Ur Blood (Man) Urine Nitrate Urine Bilirubin Urine Urobilinogen Ur Leukocyte Esterase Add Ur Microanalysis Urine RBC Urine WBC Ur Squamous Epith Cells Urine Bacteria Urine Casts U Random Total Protein Ur Random Sodium Ur Random Urea Urine Creatinine Protein/Creat Ratio 2 Random Vancomycin RAEGAN Screen RAEGAN Titer RAEGAN Titer 2 RAEGAN Titer 3 RAEGAN Pattern RAEGAN Pattern 2 RAEGAN Pattern 3 RAEGAN Comment Complement C3 Complement C4 10/01/25 10/01/25 09/30/25 05:39 04:50 21:58 WBC 7.9 RBC 3.09 L Hgb 10.1 L Hct 31.1 L MCV 100.6 H MCH 32.7 MCHC 32.5 RDW 11.6 Plt Count 209 MPV 10.5 H Immature Gran % (Auto) 0.8 H Neut % (Auto) 86.9 H Lymph % (Auto) 6.5 L [place] % (Auto) 5.7 Eos % (Auto) 0.0 Baso % (Auto) 0.1 L Lymph # (Auto) 0.51 L [place] # (Auto) 0.5 Eos # (Auto) 0.0 Baso # (Auto) 0.0 Abs Immat Gran (auto) 0.06 H Absolute Neuts (auto) 6.9 H Absolute Nucleated RBC 0.000 Nucleated RBC % 0.0 ESR Sodium 135 L Potassium 3.9 Chloride 106 Carbon Dioxide 24 Anion Gap 5 BUN 26 H Creatinine 1.87 H Estim Creat Clear Calc 38 Estimated GFR 37 L Glucose 276 H POC Capillary Glucose Calcium 8.0 L Phosphorus 3.5 Magnesium 2.1 Total Bilirubin 0.3 AST 23 ALT 17 Alkaline Phosphatase 80 Total Creatine Kinase Total Protein 5.9 L Albumin 2.9 L Urine Color Yellow Urine Appearance Clear Urine pH 5.5 Ur Specific Lackey 1.024 Urine Protein 4+ H Urine Glucose (UA) 3+ H Urine Ketones Trace H Ur Blood (Man) Negative Urine Nitrate Negative Urine Bilirubin Negative Urine Urobilinogen 0.2 Ur Leukocyte Esterase Negative Add Ur Microanalysis Reviewed Urine RBC 6-10 H Urine WBC 0-5 Ur Squamous Epith Cells None seen Urine Bacteria None seen Urine Casts 0-2 U Random Total Protein > 600 Ur Random Sodium 64 Ur Random Urea Urine Creatinine 126.7 Protein/Creat Ratio 2 > 4.74 H Random Vancomycin 11.4 RAEGAN Screen RAEGAN Titer RAEGAN Titer 2 RAEGAN Titer 3 RAEGAN Pattern RAEGAN Pattern 2 RAEGAN Pattern 3 RAEGAN Comment Complement C3 Complement C4 09/30/25 09/30/25 09/30/25 21:04 17:52 16:22 WBC RBC Hgb Hct MCV MCH MCHC RDW Plt Count MPV Immature Gran % (Auto) Neut % (Auto) Lymph % (Auto) [place] % (Auto) Eos % (Auto) Baso % (Auto) Lymph # (Auto) [place] # (Auto) Eos # (Auto) Baso # (Auto) Abs Immat Gran (auto) Absolute Neuts (auto) Absolute Nucleated RBC Nucleated RBC % ESR Sodium Potassium Chloride Carbon Dioxide Anion Gap BUN Creatinine Estim Creat Clear Calc Estimated GFR Glucose POC Capillary Glucose 289 H 284 H 290 H Calcium Phosphorus Magnesium Total Bilirubin AST ALT Alkaline Phosphatase Total Creatine Kinase Total Protein Albumin Urine Color Urine Appearance Urine pH Ur Specific Lackey Urine Protein Urine Glucose (UA) Urine Ketones Ur Blood (Man) Urine Nitrate Urine Bilirubin Urine Urobilinogen Ur Leukocyte Esterase Add Ur Microanalysis Urine RBC Urine WBC Ur Squamous Epith Cells Urine Bacteria Urine Casts U Random Total Protein Ur Random Sodium Ur Random Urea Urine Creatinine Protein/Creat Ratio 2 Random Vancomycin RAEGAN Screen RAEGAN Titer RAEGAN Titer 2 RAEGAN Titer 3 RAEGAN Pattern RAEGAN Pattern 2 RAEGAN Pattern 3 RAEGAN Comment Complement C3 Complement C4 09/30/25 09/30/25 09/30/25 15:47 12:09 12:05 WBC RBC Hgb Hct MCV MCH MCHC RDW Plt Count MPV Immature Gran % (Auto) Neut % (Auto) Lymph % (Auto) [place] % (Auto) Eos % (Auto) Baso % (Auto) Lymph # (Auto) [place] # (Auto) Eos # (Auto) Baso # (Auto) Abs Immat Gran (auto) Absolute Neuts (auto) Absolute Nucleated RBC Nucleated RBC % ESR > 140 H Sodium Potassium Chloride Carbon Dioxide Anion Gap BUN Creatinine Estim Creat Clear Calc Estimated GFR Glucose POC Capillary Glucose Calcium Phosphorus Magnesium Total Bilirubin AST ALT Alkaline Phosphatase Total Creatine Kinase 44 L Total Protein Albumin Urine Color Urine Appearance Urine pH Ur Specific Lackey Urine Protein Urine Glucose (UA) Urine Ketones Ur Blood (Man) Urine Nitrate Urine Bilirubin Urine Urobilinogen Ur Leukocyte Esterase Add Ur Microanalysis Urine RBC Urine WBC Ur Squamous Epith Cells Urine Bacteria Urine Casts U Random Total Protein Ur Random Sodium Ur Random Urea 613 Urine Creatinine Protein/Creat Ratio 2 Random Vancomycin RAEGAN Screen Pending Cancelled RAEGAN Titer Cancelled RAEGAN Titer 2 Cancelled RAEGAN Titer 3 Cancelled RAEGAN Pattern Cancelled RAEGAN Pattern 2 Cancelled RAEGAN Pattern 3 Cancelled RAEGAN Comment Cancelled Complement C3 117 Complement C4 27.1 Discharge Plan Discharge Attending physician on discharge: Dunia Reynoso Consulting providers: Luis Bonilla; Magdaleno Barone; Bryanna Garcias; German Ingram; Lucretia Del Rosario; Edgardo Chanel; Vaughn Guardado; Kavon Doty; Gordo Betancourt; Magdaleno Martinez; Riccardo Gunderson Discharging Clinician: Dunia Reynoso Anticipated Discharge Date/Time: 10/01/25 12:24 Patient Disposition: Home Activity: may shower Diet: diabetic Discharge Instructions: Check your blood sugar 3 times a day before meals if able, if not, check once a day before different meals and keep a log to bring to your PCP. Can discuss a continuous glucose monitor. Limit carbs as much as possible while you are on prednisone. Lean protein (chicken, fish, beef) and nonstarch vegetables are ok (avoid corn and potatoes for example). Drink extra water (2 liters of water a day) especially when your blood sugar is elevated You should have labs in about a week to check your kidney function, BMP. Follow up with Dr. Ingram (nephrology) in the office in 1-2 weeks if possible. [phone] Call to follow up with infectious disease in the clinic, Dr.Marcella Garcias, telemedicine appointment ? No NSAIDs (no ibuprofen, naproxen) Acetaminophen (Tylenol) is ok If you have fevers over 101 or you start feeling unwell--fatigued, dizzy. Talk to your PCP or go to the ER if severe symptoms May shower after dressing is removed Orthopedic orders: Call to Follow up with Dr. Barone (orthopedic surgery) [phone] Saturday 10/06 1. Move your elbow through full range of motion every hour while awake to prevent stiffness. No heavy lifting pushing pulling with the right elbow/right upper extremity 2. Take prednisone 10 mg daily each morning and doxycycline 100 mg twice daily until you see Abel PRIETO in the office Thursday. 3. Ok to shower. Ok to remove dressing to right elbow and place a bandaid Patient Instructions: Antibiotic Form Patient Language: Puerto Rican Stand Alone Forms: General Discharge Information Follow-up/Referrals: Roshni Potter APRN [Primary Care Provider, Family Practice] - 2 Weeks German Ingram MD [Physician, Nephrology] - 2 Weeks Magdaleno Barone MD [Physician, Orthopedics] - 1 Week Discharge Medications: New (DME) lancing device with lancets [OneTouch Delica Plus Lanc Dev] Kit See Rx Instructions .Route Qty: 1 0RF Rx Instructions: As directed (DME) lancets [OneTouch Delica Plus Lancet] 33 gauge misc See Rx Instructions .Route Qty: 100 0RF Rx Instructions: As directed For checking blood sugars 3 times a day before meals acetaminophen 500 mg Tablet 1,000 mg PO TID PRN (Reason: pain) Qty: 60 0RF multivitamin Tablet 1 tablet PO DAILY Qty: 90 3RF Continued nitroglycerin 0.4 mg tablet, sublingual 0.4 mg sublingual Q5M PRN (Reason: chest pain) Qty: 30 0RF Rx Instructions: do not exceed 3 doses per episode hydrocodone-acetaminophen 5-325 mg tablet 1 tablet PO Q8H PRN (Reason: pain) Qty: 20 0RF metformin 1,000 mg tablet 1,000 mg PO BID Qty: 60 1RF pantoprazole 40 mg tablet,delayed release (DR/EC) 40 mg PO BID Qty: 60 3RF albuterol sulfate 90 mcg/actuation HFA aerosol inhaler See Rx Instructions .ROUTE .COMPLEX Qty: 6.7 5RF Dose Instruction: INHALE 1 PUFF BY MOUTH EVERY 4 HOURS NEEDED FOR SHORTNESS OF BREATH OR WHEEZING Rx Instructions: INHALE 1 PUFF BY MOUTH EVERY 4 HOURS NEEDED FOR SHORTNESS OF BREATH OR WHEEZING ondansetron 4 mg tablet,disintegrating 4 mg PO Q8H PRN (Reason: nausea and vomiting) Qty: 30 1RF levothyroxine 25 mcg tablet 25 mcg PO DAILY Qty: 90 1RF Discontinued aspirin [Adult Low Dose Aspirin] 81 mg tablet,delayed release (DR/EC) 81 mg PO DAILY amlodipine 5 mg tablet 5 mg PO DAILY Qty: 90 1RF carvedilol 12.5 mg tablet 12.5 mg PO Q12H Qty: 180 1RF hydrochlorothiazide 25 mg tablet 25 mg PO DAILY Qty: 90 2RF lisinopril 20 mg tablet 20 mg PO BID Qty: 180 1RF No Action carvedilol [Coreg] 25 mg tablet 25 mg PO Q12HR Qty: 60 1RF hydralazine 50 mg tablet 50 mg PO TID Qty: 90 0RF lisinopril 20 mg tablet 20 mg PO DAILY Qty: 90 0RF aspirin 81 mg tablet 81 mg PO DAILY Qty: 90 0RF methylprednisolone [Medrol (David)] 4 mg tablets,dose pack See Rx Instructions PO PER PKG DIR Qty: 21 0RF Rx Instructions: PO PER PKG DIR cefdinir 300 mg capsule 300 mg PO Q12H Qty: 14 0RF furosemide [Lasix] 20 mg tablet 20 mg PO DAILY Qty: 7 0RF (DME) OneTouch Ultra Test Strip See Rx Instructions .Route Qty: 100 0RF Rx Instructions: Check blood sugar twice a day trazodone 50 mg tablet See Rx Instructions PO QHS PRN (Reason: sleep) Qty: 60 5RF Rx Instructions: Take 1 or 2 tablets orally every day at bedtime PRN; ferrous sulfate 325 mg (65 mg iron) tablet 325 mg PO DAILY Qty: 90 1RF Vit B12 1,000 mcg tablet 1 tablet PO DAILY Qty: 90 1RF atorvastatin 10 mg tablet See Rx Instructions .ROUTE .COMPLEX Qty: 90 2RF Dose Instruction: TAKE 1 TABLET BY MOUTH DAILY Rx Instructions: TAKE 1 TABLET BY MOUTH DAILY Date of admission: 09/28/25 23:07 Primary Care Provider: Roshni Potter Admitting Provider: Gold Joe Attending physician on admission: Dunia Reynoso Condition: Stable Hospitalist MIPS Heart Failure (Exclusion) Patient has history of Heart Transplant or Left Ventricular Assistive Device?: No IF YES, STOP HERE Heart Failure (Qualifier) Patient has current or prior documentation of LVEF less than or equal to 40%, or mod/servere depressed LVSF?: No IF NO, STOP HERE
[2025-10-01 13:00] VITALS: BP 185/76
[2025-10-01 14:00] VITALS: PULSE 67; RESP 16; TEMP 36.7; O2SAT 100
[2025-10-03 07:09] LABS: ANA by IFA Rfx Titer/Pattern Negative (.)
[2025-10-03 13:09] LABS: Immunoglobulin A, Qn 375 mg/dL (90-386); Immunoglobulin G, Qn 719 mg/dL (603-1613); Immunoglobulin M, Qn 37 mg/dL (20-172)
[2025-10-04 15:09] LABS: Albumin, U 64.0 % (.); Alpha-1-Globulin, U 4.8 % (.); Alpha-2-Globulin, U 6.7 % (.); Beta Globulin, U 10.8 % (.); Gamma Globulin, U 13.6 % (.)
== END 2025-10-01 16:00 | disposition home or self-care (01) | DRG 549 ==
LOC: ANHED 23:30 → ANH3MEDSUR 23:48
PROVIDERS: Internal Medicine Nephrology; Nurse Practitioner; Orthopaedic Surgery; Physician Assistant; Admitting Provider Family Medicine; Emergency Provider Emergency Medicine; PCP Nurse Practitioner Family; Visit Provider Nurse Practitioner Acute Care
DX: M00.9 Pyogenic arthritis, unspecified (principal); E46 Unspecified protein-calorie malnutrition; E87.1 Hypo-osmolality and hyponatremia; N17.9 Acute kidney failure, unspecified; M11.9 Crystal arthropathy, unspecified; I12.9 Hypertensive chronic kidney disease with stage 1 through stage 4 chronic kidney disease, or unspecified chronic kidney disease; E11.22 Type 2 diabetes mellitus with diabetic chronic kidney disease; N18.31 Chronic kidney disease, stage 3a; E86.0 Dehydration; J44.9 Chronic obstructive pulmonary disease, unspecified; I71.40 Abdominal aortic aneurysm, without rupture, unspecified; I25.10 Atherosclerotic heart disease of native coronary artery without angina pectoris; E03.9 Hypothyroidism, unspecified; E78.5 Hyperlipidemia, unspecified; D64.9 Anemia, unspecified; E55.9 Vitamin D deficiency, unspecified; K57.90 Diverticulosis of intestine, part unspecified, without perforation or abscess without bleeding; F17.210 Nicotine dependence, cigarettes, uncomplicated; Z95.5 Presence of coronary angioplasty implant and graft; I25.2 Old myocardial infarction; Z68.27 Body mass index [BMI] 27.0-27.9, adult
CPT/HCPCS: 20600; 36415; 73080; 73201; 75989; 76770; 80053; 80202; 81001; 82550; 82570; 82607; 82728; 82746; 82784; 82945; 82948; 83036; 83540; 83550; 83735; 84100; 84145; 84156; 84157; 84166; 84300; 84540; 84550; 85025; 85652; 86038; 86140; 86160; 86162; 86334; 87040; 87070; 87075; 87205; 89051; 89060; 93005; 96365; 99285; A9270; J0692; J1171; J1650; J1815; J2405; J3373; J3420; J3475; J7042; J7120; Q9967

== ENCOUNTER 2025-10-02 13:51 | Outpatient (CLI) | payer OTHER, SELFPAY ==
--- OUTSIDE RECORDS SUMMARY | 2006-03-03 04:15 | XMS_ITS | Continuity of Care Document ---
Author Organization [facility] Address [address] [place] [address] [place] [address] Phone Care Team Providers Care Printed Circuit Boards Plasma Etcher Name Role Phone Maciej Esteves MD Unavailable Unavailable Advance Directives Directive Yes / No Effective Date File Name No Information Encounters Encounter Description Practice Location Reason(s) For Visit Diagnoses Date Provider Providers Copied on Encounter [facility], [address] [place] [address] [address], [place], [place], [address], [place] tel:[phone] SEC [facility] No Information [address] [facility] A, [place], [place], [address], [place]. tel:[phone] Family History Family Member Type Diagnosis Age [...]
--- OUTSIDE RECORDS SUMMARY | 2025-10-02 14:00 | XMS_ITS | Encounter Summary ---
Author Organization [employer] Address [address] [place] [address] Care Team Providers Care Speedometer Inspector Name Role Phone Unavailable Primary Care Provider Unavailabl e Encounter Details Date Type Department Care Team (Late st Contact Info) Description 03/28/1999 Outpatient Historical HIS MD Wali PEREZ, Jim Gordon MD 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
--- OUTSIDE RECORDS SUMMARY | 2025-10-02 14:00 | XMS_ITS | Clinical Summary ---
Author Organization [facility] Address [address] 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
--- OUTSIDE RECORDS SUMMARY | 2025-10-02 14:00 | XMS_ITS | Clinical Summary ---
Author Organization [facility] [employer] Address [address] [place] [address] Care Team Providers Care Pack Out Operator Name Role Phone Kavon Owen MD Primary Care Provider [phone] Source Comments [facility] [employer],non-owned Affiliates and Associated Physician Practices is amultiple site organization consisting of ambulatory clinics and hospital sitesin [place], [place], [place] and [place]. This disclosure is being madepursuant to the Care Everywhere program and may not contain all information available regarding this patient. Last updated 18.[facility] [employer] Allergies No known active allergies Medications * [...] 8:22 PM 09/18/2016 8:51 PM Care Teams Pack Out Operator Relationship Specialty Start Date End Date Kaovn Owen MD [address] [address] PCP - General Internal Medicine 09/18/16
[2025-10-02 14:41] LABS: Total Volume 24 Hour Urine 900 ml
[2025-10-02 15:12] LABS: Creatinine Clearance Urine 23.8 ml/min (75-125); Serum Creat 1.79
[2025-10-04 15:09] LABS: Albumin, U 62.6 % (.); Alpha-1-Globulin, U 8.5 % (.); Alpha-2-Globulin, U 7.2 % (.); Beta Globulin, U 11.5 % (.); Gamma Globulin, U 10.2 % (.)
== END 2025-10-02 13:52 | disposition home or self-care (01) ==
LOC: ANHLAB 13:52
PROVIDERS: PCP Nurse Practitioner Family; Visit Provider Nurse Practitioner Acute Care
DX: N18.9 Chronic kidney disease, unspecified (principal)
CPT/HCPCS: 82575; 84156; 84166; 86335

== ENCOUNTER 2025-10-06 08:38 | Outpatient (CLI) | payer OTHER, SELFPAY ==
--- OUTSIDE RECORDS SUMMARY | 2006-03-03 04:15 | XMS_ITS | Continuity of Care Document ---
Author Organization [facility] Address [address] [place] [address] [place] [address] Phone Care Team Providers Care Senior Electrical Engineer Name Role Phone Maciej Esteves MD Unavailable Unavailable Advance Directives Directive Yes / No Effective Date File Name No Information Encounters Encounter Description Practice Location Reason(s) For Visit Diagnoses Date Provider Providers Copied on Encounter [facility], [address], [place], [place], [address], [place] tel:[phone] SEC [facility] No Information [address] [facility] A, [place], [place], [address], [place]. tel:[phone] Family History Family Member Type Diagnosis Age [...]
--- OUTSIDE RECORDS SUMMARY | 2025-10-06 08:54 | XMS_ITS | Clinical Summary ---
Author Organization [facility] Address [address] [place] [address] Care Team Providers Care Emergency Medicine Nurse Practitioner Name Role Phone Kavon Owne MD Primary Care Provider [phone] Source Comments [facility],non-owned Affiliates and Associated Physician Practices is amultiple site organization consisting of ambulatory clinics and hospital sitesin [place], [place], [place] and [place]. This disclosure is being madepursuant to the Care Everywhere program and may not contain all information available regarding this patient. Last updated 18.[facility] Allergies No known active allergies Medications * [...] 8:22 PM 09/18/2016 8:51 PM Care Teams Emergency Medicine Nurse Practitioner Relationship Specialty Start Date End Date Kavon Owen MD [address] [address] PCP - General Internal Medicine 09/18/16
--- OUTSIDE RECORDS SUMMARY | 2025-10-06 08:54 | XMS_ITS | Encounter Summary ---
Author Organization [employer] Address 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
--- OUTSIDE RECORDS SUMMARY | 2025-10-06 08:54 | XMS_ITS | Clinical Summary ---
Author Organization [facility] Address [address] 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
[2025-10-06 09:44] LABS: Anion Gap 6 mmol/L (4-12); Blood Urea Nitrogen 34 mg/dL (9-20); Calcium 8.3 mg/dL (8.4-10.2); Carbon Dioxide 25 mmol/L (22-30); Chloride 107 mmol/L (98-107); Estimated Glomerular Filt Rate 37; Glucose 119 mg/dL (65-110); Potassium 3.9 mmol/L (3.4-5.0); Sodium 138 mmol/L (137-145)
== END 2025-10-06 08:39 | disposition home or self-care (01) ==
LOC: ANHLAB 08:39
PROVIDERS: PCP Nurse Practitioner Family; Visit Provider Nurse Practitioner Family
DX: N17.9 Acute kidney failure, unspecified (principal)
CPT/HCPCS: 36415; 80048

== ENCOUNTER 2025-10-12 06:56 | Outpatient (CLI) | payer OTHER, SELFPAY ==
--- OUTSIDE RECORDS SUMMARY | 2006-03-03 04:15 | XMS_ITS | Continuity of Care Document ---
Author Organization [facility] [place] Address [address] [place] [address] [place] [address] Phone Care Team Providers Care Sign Writer Letterer Or Painter Name Role Phone Maciej Esteves MD Unavailable Unavailable Advance Directives Directive Yes / No Effective Date File Name No Information Encounters Encounter Description Practice Location Reason(s) For Visit Diagnoses Date Provider Providers Copied on Encounter [facility], [address] [place] [address] [address], [place], [place], [address], [place] tel:[phone] SEC [facility] No Information [address] [facility] A, [place], [place], [address], [place]. tel:[phone] Family History Family Member Type Diagnosis Age At Onset No Information Payers Payer name Insurance type Covered libertarian ID Authoriza tion(s) No Information Social History Type Description Quantity Date Captured Comments Sex Male Smoking Status No Information Chief Complaint And Reason For Visit No Information Reason For Referral Reason For Referral No Information History Of Present Illness Encounter Date Complaint History Of Prese nt Illness No Information Functional Status Date Functional Assessmen t No Information Instructions Date Instruction Additional Infor mation No Information Assessments Type Assessment Date No Information Patient Care Teams Name Effective Dates (start - stop) Status Members No Information
--- OUTSIDE RECORDS SUMMARY | 2006-03-03 04:15 | XMS_ITS | Continuity of Care Document ---
Author Organization [facility] [place] Address [address] [place] [address] [place] [address] Phone Care Team Providers Care Transportation Escort Name Role Phone Maciej Esteves MD Unavailable Unavailable Advance Directives Directive Yes / No Effective Date File Name No Information Encounters Encounter Description Practice Location Reason(s) For Visit Diagnoses Date Provider Providers Copied on Encounter [facility], [address] [place] [address] [address], [place], [place], [address], [place] tel:[phone] SEC [facility] No Information [address] [facility] A, [place], [place], [address], [place]. tel:[phone] Family History Family Member Type Diagnosis Age At Onset No Information Payers Payer name Insurance type Covered green party ID Authoriza tion(s) No Information Social History [...]
--- OUTSIDE RECORDS SUMMARY | 2006-03-03 04:15 | XMS_ITS | Continuity of Care Document ---
Author Organization [facility] Address [address] [place] [address] [place] [address] Phone Care Team Providers Care Patient Financial Services Manager Name Role Phone Maciej Esteves MD Unavailable Unavailable Advance Directives Directive Yes / No Effective Date File Name No Information Encounters Encounter Description Practice Location Reason(s) For Visit Diagnoses Date Provider Providers Copied on Encounter [facility], [address] [place] [address] [address], [place], [place], [address], [place] tel:[phone] SEC [facility] No Information [address] [facility] A, [place], [place], [address], [place]. tel:[phone] Family History Family Member Type Diagnosis Age At Onset No Information Payers Payer name Insurance type Covered republican ID Authoriza tion(s) No Information Social History [...]
--- OUTSIDE RECORDS SUMMARY | 2006-03-03 04:15 | XMS_ITS | Continuity of Care Document ---
Author Organization [facility] [place] [address] [place] [address] [place] [address] Phone Care Team Providers Care Cold Storage Worker Name Role Phone Maciej Esteves MD Unavailable Unavailable Advance Directives Directive Yes / No Effective Date File Name No Information Encounters Encounter Description Practice Location Reason(s) For Visit Diagnoses Date Provider Providers Copied on Encounter [facility], [address] [place] [address] [address], [place], [place], [address], [place] tel:[phone] SEC [facility] No Information [address] [facility] A, [place], [place], [address], [place]. tel:[phone] Family History Family Member Type Diagnosis Age [...]
--- OUTSIDE RECORDS SUMMARY | 2006-03-03 04:15 | XMS_ITS | Continuity of Care Document ---
Author Organization [facility] Eye [facility] Address [address] [place] [address] [place] [address] Phone Care Team Providers Care Kid Club Attendant Name Role Phone Maciej Esteves MD Unavailable Unavailable Advance Directives Directive Yes / No Effective Date File Name No Information Encounters Encounter Description Practice Location Reason(s) For Visit Diagnoses Date Provider Providers Copied on Encounter [facility], [address] [place] [address] [address], [place], [place], [address], [place] tel:[phone] SEC [facility] No Information [address] [facility] A, [place], [place], [address], [place]. tel:[phone] Family History Family Member Type Diagnosis Age [...]
--- OUTSIDE RECORDS SUMMARY | 2006-03-03 04:15 | XMS_ITS | Continuity of Care Document ---
Author Organization [facility] [place] [facility] Address [address] [place] [address] [place] [address] Phone Care Team Providers Care Machine Cloth Measurer Name Role Phone Maciej Esteves MD Unavailable Unavailable Advance Directives Directive Yes / No Effective Date File Name No Information Encounters Encounter Description Practice Location Reason(s) For Visit Diagnoses Date Provider Providers Copied on Encounter [facility], [address] [place] [address] [address], [place], [place], [address], [place] tel:[phone] SEC [facility] No Information [address] [facility] A, [place], [place], [address], [place]. tel:[phone] Family History Family Member Type Diagnosis Age At Onset No Information Payers Payer name Insurance type Covered constitution party ID Authoriza tion(s) No Information Social [...]
--- OUTSIDE RECORDS SUMMARY | 2006-03-03 04:15 | XMS_ITS | Continuity of Care Document ---
Author Organization [facility] Address [address] [place] [address] [place] [address] Phone Care Team Providers Care Rubber Turner Name Role Phone Maciej Esteves MD Unavailable Unavailable Advance Directives Directive Yes / No Effective Date File Name No Information Encounters Encounter Description Practice Location Reason(s) For Visit Diagnoses Date Provider Providers Copied on Encounter [facility], [address] [place] [address] [address], [place], [place], [address], [place] tel:[phone] [facility] No Information [address] [facility] A, [place], [place], [address], [place]. tel:[phone] Family History Family Member Type Diagnosis Age [...]
--- OUTSIDE RECORDS SUMMARY | 2006-03-03 04:15 | XMS_ITS | Continuity of Care Document ---
Author Organization [facility] Address [address] [place] [address] [place] [address] Phone Care Team Providers Care Server Programmer Name Role Phone Maciej Esteves MD Unavailable Unavailable Advance Directives Directive Yes / No Effective Date File Name No Information Encounters Encounter Description Practice Location Reason(s) For Visit Diagnoses Date Provider Providers Copied on Encounter [facility], [address] [place] [address] [address], [place], [place], [address], [place] tel:[phone] SEC [facility] No Information [address] [facility] A, [place], [place], [address], [place]. tel:[phone] Family History Family Member Type Diagnosis Age At Onset No Information Payers Payer name Insurance type Covered alliance party ID Authoriza tion(s) No Information Social [...]
--- OUTSIDE RECORDS SUMMARY | 2006-03-03 04:15 | XMS_ITS | Continuity of Care Document ---
Author Organization [facility] Address [address] [place] [address] [place] [address] Phone Care Team Providers Care Certified Medical Records Coder Name Role Phone Maciej Esteves MD Unavailable Unavailable Advance Directives Directive Yes / No Effective Date File Name No Information Encounters Encounter Description Practice Location Reason(s) For Visit Diagnoses Date Provider Providers Copied on Encounter [facility], [address] [place] [address] [address], [place], [place], [address], [place] tel:[phone] SEC [facility] No Information [address] [facility] A, [place], [place], [address], [place]. tel:[phone] Family History Family Member Type Diagnosis Age [...]
--- OUTSIDE RECORDS SUMMARY | 2006-03-03 04:15 | XMS_ITS | Continuity of Care Document ---
Author Organization [facility] Address [address] [place] [address] [place] [address] Phone Care Team Providers Care Director Global Market Research Name Role Phone Maciej Esteves MD Unavailable Unavailable Advance Directives Directive Yes / No Effective Date File Name No Information Encounters Encounter Description Practice Location Reason(s) For Visit Diagnoses Date Provider Providers Copied on Encounter [facility], [address] [place] [address] [address], [place], [place], [address], [place] tel:[phone] SEC [facility] No Information [address] [facility] A, [place], [place], [address], [place]. tel:[phone] Family History Family Member Type Diagnosis Age [...]
--- OUTSIDE RECORDS SUMMARY | 2006-03-03 04:15 | XMS_ITS | Continuity of Care Document ---
Author Organization [facility] Address [address] [place] [address] [place] [address] Phone Care Team Providers Care Hospice Consultant Name Role Phone Maciej Esteves MD Unavailable Unavailable Advance Directives Directive Yes / No Effective Date File Name No Information Encounters Encounter Description Practice Location Reason(s) For Visit Diagnoses Date Provider Providers Copied on Encounter [facility], [address] [place] [address] [address], [place], [place], [address], [place] tel:[phone] SEC [facility] No Information [address] [facility] A, [place], [place], [address], [place]. tel:[phone] Family History Family Member Type Diagnosis Age [...]
--- OUTSIDE RECORDS SUMMARY | 2025-10-12 06:58 | XMS_ITS | Clinical Summary ---
Author Organization [facility] Address [address] 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
--- OUTSIDE RECORDS SUMMARY | 2025-10-12 06:58 | XMS_ITS | Encounter Summary ---
Author Organization [employer] Address 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
--- OUTSIDE RECORDS SUMMARY | 2025-10-12 06:59 | XMS_ITS | Clinical Summary ---
Author Organization [facility] Address [address] [place] [address] Care Team Providers Care Technical Data Analyst Name Role Phone Kavon Owen MD Primary Care Provider [phone] Source Comments [facility] [employer],non-owned Affiliates and Associated Physician Practices is amultiple site organization consisting of ambulatory clinics and hospital sitesin [place], [place], [place] and [place]. This disclosure is being madepursuant to the Care Everywhere program and may not contain all information available regarding this patient. Last updated 18.[facility] Allergies No known active allergies Medications * [...] DEPRESSION SCREENING 11/23/2024 COVID-19 VACCINE (1 - 2024-2 6 season) 2025 INFLUENZA VACCINE (#1) 2025 Respiratory [...] 8:22 PM 09/18/2016 8:51 PM Care Teams Technical Data Analyst Relationship Specialty Start Date End Date Kavon Owen MD [address] [address] PCP - General Internal Medicine 09/18/16
[2025-10-12 07:34] LABS: Hematocrit 29.5 % (42.0-52.0); Hemoglobin 9.8 g/dL (14.0-18.0); Immature Granulocyte Percent A 0.7 % (0-0.5); Lymphocytes Absolute Auto 0.94 K/mm3 (0.9-3.2); Mean Corpuscular HGB Conc 33.2 g/dl (32-36); Mean Corpuscular Hemoglobin 33.8 pg (26-34); Mean Corpuscular Volume 101.7 fl (80-100); Nucleated Red Blood Cells Absolute Auto 0.000 K/mm3 (0.0-0.012); Nucleated Red Blood Cells Perc 0.0 % (0.0-0.2); Platelet Count Result 182 k/mm3 (150-375); Red Blood Count 2.90 M/mm3 (4.6-6.20); White Blood Count 8.2 K/mm3 (4.5-10.0)
[2025-10-12 07:47] LABS: Alanine Aminotransferase 15 U/L (6-50); Albumin Level 3.3 g/dL (3.5-5.1); Alkaline Phosphatase 64 U/L (38-126); Anion Gap 7 mmol/L (4-12); Aspartate Amino Transferase 20 U/L (17-59); Bilirubin,Total 0.4 mg/dL (0.2-1.3); Blood Urea Nitrogen 24 mg/dL (9-20); Calcium 8.0 mg/dL (8.4-10.2); Carbon Dioxide 23 mmol/L (22-30); Chloride 107 mmol/L (98-107); Estimated Glomerular Filt Rate 32; Glucose 119 mg/dL (65-110); Potassium 3.9 mmol/L (3.4-5.0); Sodium 137 mmol/L (137-145); Total Protein 6.0 g/dL (6.3-8.2)
== END 2025-10-12 06:57 | disposition home or self-care (01) ==
PROVIDERS: PCP Family Medicine; Visit Provider Nurse Practitioner Family
DX: I10 Essential (primary) hypertension (principal)
CPT/HCPCS: 36415; 80053; 85025

== ENCOUNTER 2025-11-07 13:40 | Outpatient (CLI) | payer OTHER, SELFPAY ==
--- NOTE | 2025-11-07 13:52 | ECHO_ITS ---
Patient Info Name: Tray Patel Age: 60 years : 1965 Gender: Male Ht: 69 in Wt: 190 lbs BSA: 2.07 m2 HR: 59 bpm BP: 179 / 86 mmHg Technical Quality: Good Exam Date: 11/07/2025 1:55 PM Patient Status: O Admit Date: 11/07/2025 Exam Type: CA echo doppler color flow Complete two-dimensional, color flow and Doppler transthoracic echocardiogram is performed. Psychiatric Registered Nurse: Afsaneh Wiley Attending Provider: Roshni Potter Summary 1. Complete two-dimensional, color flow and Doppler transthoracic echocardiogram is performed. 2. Left ventricular chamber dimension is mildly enlarged. 3. Left ventricular systolic function is normal, estimated at 55-60. 4. There is mild concentric increased left ventricular wall thickness. 5. The left ventricular diastolic function is abnormal. 6. E/e' 10 is mildly elevated. 7. Left atrial chamber dimension is moderately enlarged. 8. Right atrial chamber dimension is mildly enlarged. 9. There is moderate aortic valve sclerosis. 10. There is mild mitral valve regurgitation. 11. There is trace tricuspid valve regurgitation. 12. Moderate pulmonary hypertension, estimated pulmonary arterial systolic pressure is 53 mmHg. 13. There is trace pulmonic regurgitation. Left Ventricle E/e' 10 is mildly elevated. Left ventricular chamber dimension is mildly enlarged. Left ventricular systolic function is normal, estimated at 55-60. There is mild concentric increased left ventricular wall thickness. The left ventricular diastolic function is abnormal. Right Ventricle Right ventricular chamber dimension is normal. Right ventricular systolic function is normal and with normal TAPSE 3.4 cm. Left Atria Left atrial chamber dimension is moderately enlarged. Right Atria Right atrial chamber dimension is mildly enlarged. Aortic Valve The aortic valve is trileaflet. There is moderate aortic valve sclerosis. There is no aortic valve stenosis. There is no aortic valve regurgitation. Pulmonic Valve There is trace pulmonic regurgitation. Mitral Valve There is no mitral valve stenosis. There is mild mitral valve regurgitation. Tricuspid Valve There is trace tricuspid valve regurgitation. Moderate pulmonary hypertension, estimated pulmonary arterial systolic pressure is 53 mmHg. Pericardium/Pleural There is no pericardial effusion. Inferior Vena Cava Normal inferior vena cava with >50% collapse upon inspiration consistent with normal right atrial pressure, 5 mmHg. Aorta The aortic root size at the sinus of Valsalva is normal. Left Ventricular Outflow Tract Name Value Normal LVOT 2D LVOT Diameter 2.1 cm LVOT Doppler LVOT Peak Velocity 118 cm/s LVOT Peak Gradient 6 mmHg LVOT Mean Gradient 3 mmHg LVOT VTI 29 cm LVOT VTI/AV VTI Ratio 0.9 LVOT Stroke Volume 96 ml LVOT CO 5.6 l/min LVOT CI 2.7 l/min/m2 Pulmonic Valve Name Value Normal RVOT Doppler RVOT Peak Velocity 74 cm/s RVOT Peak Gradient 2 mmHg PV Doppler PV Peak Velocity 90 cm/s PV Peak Gradient 3 mmHg Mitral Valve Name Value Normal MV Diastolic Function MV E Peak Velocity 90 cm/s MV A Peak Velocity 68 cm/s MV E/A 1.3 MV Decel Time (PW) 188 ms Tricuspid Valve Name Value Normal TV Regurgitation Doppler TR Peak Velocity 348 cm/s TR Peak Gradient 46 mmHg Estimated PAP/RSVP RA Pressure 5 mmHg <=5 PA Systolic Pressure 53 mmHg <36 RV Systolic Pressure 53 mmHg <36 TV Annular TDI TV Lateral Amy s' Velocity 13.5 cm/s >=9.5 Aorta Name Value Normal Ascending Aorta Ao Root Diameter (MM) 3.5 cm Ao Root Diam Index (MM) 1.7 cm/m2 Aortic Valve Name Value Normal AV Doppler AV Peak Velocity 134 cm/s AV Peak Gradient 7 mmHg AV Mean Gradient 4 mmHg AV VTI 30 cm AV Area (Cont Eq VTI) 3.2 cm2 >=3.0 AV Area (Cont Eq Scot) 2.9 cm2 AV DI (Scot) 0.88 AV Regurgitation 2D LVOT Area 3.3 cm2 Ventricles Name Value Normal LV Dimensions 2D/MM IVS Diastolic Thickness (2D) 0.8 cm 0.6-1.0 IVS Diastole Thickness (MM) 0.9 cm 0.6-1.0 LVID Diastole (2D) 5.4 cm 4.2-5.8 LVID Diastole (MM) 5.6 cm 4.2-5.8 LVIW Diastolic Thickness (2D) 1.0 cm 0.6-1.0 LVIW Diastolic Thickness (MM) 1.0 cm 0.6-1.0 LVID Systole (2D) 3.8 cm 2.5-4.0 LVID Systole (MM) 3.4 cm 2.5-4.0 LVOT Diameter 2.1 cm LV Mass (2D Cubed) 187.12 g 88.00-224.00 LV Mass Index (2D Cubed) 91 g/m2 49-115 Relative Wall Thickness (2D) 0.39 <=0.42 LV Mass (MM Cubed) 209.91 g 88.00-224.00 LV Mass Index (MM Cubed) 102 g/m2 49-115 Relative Wall Thickness (MM) 0.37 LV Fractional Shortening/Ejection Fraction 2D/MM LV Fractional Shortening (2D) 29 % 25-43 LV Fractional Shortening (MM) 38 % 25-43 LV EF (MM Teichholz) 68 % LV EF (2D Teichholz) 56 % LV Diastolic Volume (4C MOD) 108 ml LV EF (4C MOD) 61 % LV Diastolic Volume (2C MOD) 90 ml LV EF (2C MOD) 52 % LV Diastolic Volume (BP MOD) 99 ml 62-150 LV Diastolic Volume Index (BP MOD) 48 ml/m2 34-74 LV Systolic Volume (BP MOD) 42 ml 21-61 LV Systolic Volume Index (BP MOD) 20 ml/m2 11-31 LV EF (BP MOD) 58 % 52-72 LV Diastolic Length (4C) 8.3 cm LV Systolic Length (4C) 7.2 cm LV Stroke Volume (4C MOD) 66 ml Atria Name Value Normal LA Dimensions LA Dimension (MM) 4.5 cm 3.0-4.0 LA Volume (4C A-L) 99 ml LA Volume (BP A-L) 94 ml RA Dimensions RA Systolic Major [place] Length (4C) 5.6 cm 2.1-2.7 RA Area (4C) 19.9 cm2 <=18.0 Report Signatures
--- OUTSIDE RECORDS SUMMARY | 2025-11-07 15:46 | XMS_ITS | Encounter Summary ---
Author Organization [facility] Address 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
--- OUTSIDE RECORDS SUMMARY | 2025-11-07 15:46 | XMS_ITS | Clinical Summary ---
Author Organization [facility] Address [address] 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
--- OUTSIDE RECORDS SUMMARY | 2025-11-07 15:47 | XMS_ITS | Clinical Summary ---
Author Organization [facility] Address [address] [place] [address] Care Team Providers Care Integration Architect Name Role Phone Kavon Owen MD Primary Care Provider [phone] Source Comments [facility],non-owned Affiliates and Associated Physician Practices is amultiple site organization consisting of ambulatory clinics and hospital sitesin [place], [place], [place] and [place]. This disclosure is being madepursuant to the Care Everywhere program and may not contain all information available regarding this patient. Last updated 18.[facility] Allergies No known active allergies Medications * [...] 8:22 PM 09/18/2016 8:51 PM Care Teams Integration Architect Relationship Specialty Start Date End Date Kavon Owen MD [address] [address] PCP - General Internal Medicine 09/18/16
== END 2025-11-07 13:41 | disposition home or self-care (01) ==
LOC: ANHCARD 13:40
PROVIDERS: PCP Nurse Practitioner Family; Visit Provider Nurse Practitioner Family
DX: R60.0 Localized edema (principal); I51.89 Other ill-defined heart diseases; I35.8 Other nonrheumatic aortic valve disorders; I34.0 Nonrheumatic mitral (valve) insufficiency; I27.20 Pulmonary hypertension, unspecified
CPT/HCPCS: 93306